=== PATIENT | female | born 1945 | race Caucasian/White ===

== ENCOUNTER → 2017-01-06 | Outpatient (REF) | payer MEDICARE, OTHER ==
[2017-01-06 19:45] LABS: ALBUMIN 3.4 GM/DL (3.2-5.2); ALBUMIN/GLOBULIN RATIO 0.94 (1.00-1.93); BILIRUBIN,TOTAL 0.3 MG/DL (0.2-1.0); CALCIUM LEVEL 8.9 MG/DL (8.8-10.2); CREATININE FOR GFR 1.24 MG/DL (0.55-1.02); GLOMERULAR FILTRATION RATE 45.5 (>39); POTASSIUM SERUM 4.7 MEQ/L (3.5-5.1)
== END ==
LOC: M SFHCADAM 15:37
PROVIDERS: ATTEND Family Medicine
DX: R73.09 Other abnormal glucose (principal)
CPT/HCPCS: 80053; 83036; G0463

== ENCOUNTER → 2017-01-27 | Outpatient (CLI) | payer MEDICARE, OTHER ==
--- NOTE | 2017-02-13 00:11 | ECWPNPC ---
PATIENT NAME: TENISHA REYNAGA : 1945 GENDER: FEMALE VISIT DATE: 01/27/2017 DISCHARGE DATE: 01/27/17 1440 VISIT LOCKED DATE TIME: PHYSICIAN: ÁNGEL BRONSON RESOURCE: ÁNGEL BRONSON REASON FOR APPOINTMENT 1. CHRONIC PAIN HISTORY OF PRESENT ILLNESS NEW PATIENT CONSULT: WHEN DID YOUR PAIN FIRST START? . BRIEFLY DESCRIBE HOW YOUR PAIN STARTED? . HOW DOES YOUR PAIN CHANGE WITH TIME? . DOES YOUR PAIN AWAKEN YOU FROM SLEEP? . HOW MANY HOURS OF SLEEP DO YOU NORMALLY GET? . ANY DIAGNOSTIC TESTING? . FACILITY WHERE TESTS WERE DONE? ____. PAIN TREATMENT TREATMENT YES CANCER HAVE YOU EVER HAD ANY TYPE OF CANCER?NO NO. PAIN SCREENING: PATIENT HAS A COMPLAINT OF ACUTE OR CHRONIC PAIN :YES FALL RISK SCREENING: SCREENING :NO FALLS IN THE PAST YEAR [place] INVENTORY: QUESTIONNAIRE ASSESSEDNO SCORE VALUE CALCULATED NO DID NOT COMPLETE ALL ASSESSMENT QUESTIONS. DENIES SUICIDAL OR HOMICIDAL IDEATION TODAY'S VISIT: NOTES: PT REFERRED BY DR. SHAD GAYTAN FOR CHRONIC HIP (POST SURGICAL PAIN S/P INFCTION) AND SHOULDER PAIN . RATES PAIN LEVEL TODAY 5/10. REPORTS PAIN IS CENTERED IN LOW BACK, LEFT SHOULDER, AND LEFT KNEE. REPORTS HAD LEFT HIP REPLACEMENT AFTER DEGENERATIVE CHANGES. STATES PAIN ACTUALLY STARTED WITH PAIN AND DISLOCATION IN LEFT KNEE. NOW IS NOTING THAT KNEE FEELS LIKE IT'S GOING TO BREAK. THIS HAS BEEN PRESENT FOR A FEW WEEKS. STILL HAS A LARGE OPEN WOUND AT LEFT HIP AND IS PRESENTLY SEEING DR GARCIA. CURRENTLY HAS NOT HAD ANY RECENT PT FOR LEFT KNEE AND DID ATTEND REHAB POST HIP SURGERY. IS HAVING PAIN IN LEFT ARM FROM ANTERIOR. ELBOW TO SHOULDER. ONSET WAS A FEW WEEKS AFTER HIP SURGERY. THIS IS THE WORST AREA OF PAIN. HAS BEEN TAKING OXYCODONE AND THIS HELPS IF SHE TAKES 2 TABS. HAD HAD NO SWELLING, N/T IN THE LEFT ARM. DOES HAVE PREVIOUS ROTATOR CUFF PAIN ON RIGHT. . CURRENT MEDICATIONS TAKING LOVASTATIN 20 MG TABLET 1 TABLET WITH A MEAL ORALLY ONCE A DAY TAKING FERROUS GLUCONATE 325 (36 FE) MG TABLET 1 TABLET ORALLY ONCE A DAY TAKING METFORMIN HCL 500 MG TABLET 1 TABLET WITH MEALS ORALLY TWICE A DAY TAKING MULTIVITAMIN WOMEN - TABLET ORALLY DAILY TAKING PRESERVISION AREDS - CAPSULE 1 CAP ORALLY BID TAKING ASPIRIN 325 MG TABLET 1/2 TABLET ORALLY ONCE A DAY TAKING FIBER 625 MG TABLET 1-3 TABLET NEEDED ORALLY BID TAKING CALCIUM 500 MG TABLET 2 TABLET WITH MEALS ORALLY TWICE A DAY TAKING VITAMIN D (CHOLECALCIFEROL) 1000 UNIT TABLET 3 TABLET ORALLY ONCE A DAY TAKING MECLIZINE HCL 25 MG TABLET CHEWABLE 1 TABLET NEEDED ORALLY ONCE A DAY TAKING GUANFACINE HCL 2 MG TABLET 1 TABLET AT BEDTIME ORALLY ONCE A DAY TAKING GABAPENTIN 100 MG CAPSULE 1 TAB ORALLY ONCE DAILY TAKING OXYCODONE-ACETAMINOPHEN 5-325 MG TABLET 1 TABLET NEEDED ORALLY EVERY 6 HRS TAKING FOLIC ACID 800 MCG TABLET 1 TABLET ORALLY ONCE A DAY TAKING MELATONIN 5 MG TABLET 3 TABLET AT BEDTIME NEEDED WITH FOOD ORALLY ONCE A DAY TAKING BENADRYL 1 CAP ORALLY 25 MG NEEDED TAKING CLARITIN 10 MG TABLET 1 TABLET ORALLY ONCE A DAY NOT-TAKING PROBIOTIC - CAPSULE ORALLY DAILY NOT-TAKING OXYCONTIN 10 MG TABLET ER 12 HOUR ABUSE-DETERRENT 1 TABLET ORALLY EVERY 12 HRS NOT-TAKING MELOXICAM 15 MG TABLET 1 TABLET ORALLY ONCE A DAY NOT-TAKING LIDODERM 5 % PATCH 1 PATCH TO SKIN REMOVE AFTER 12 HOURS EXTERNALLY ONCE A DAY NOT-TAKING LEVOFLOXACIN 750 MG TABLET 1 TABLET ORALLY ONCE A DAY NOT-TAKING AMPICILLIN 500 MG CAPSULE 1 CAPSULE ORALLY EVERY 6 HRS NOT-TAKING OXYCONTIN 10 MG TABLET ER 12 HOUR ABUSE-DETERRENT 1 TABLET ORALLY EVERY 8 HOURS MEDICATION LIST REVIEWED AND RECONCILED WITH THE PATIENT PAST MEDICAL HISTORY TYPE 2 DIABETES ARTHRITIS SPINAL STENOSIS ALLERGIES SUGAR SUBSTITUTES: LIGHT HEADNESS, DIZZINESS: ALLERGY ASPERTAME: LIGHT HEADEDNESS: ALLERGY SURGICAL HISTORY RIGHT ANKLE REPAIR- PLATE AND SCREWS RIGHT KNEE- PLATE AND SCREWS LEFT HIP REPLACEMENT 12/15/16 T&A A CHILD AND AN ADULT FAMILY HISTORY FATHER: , DIAGNOSED WITH HEART DISEASE, STROKE MOTHER: , MOTHER R/T MVA D/T A STROKE , DIAGNOSED WITH STROKE 3 SON(S) , 2 DAUGHTER(S) - HEALTHY. PATERNAL AUNT WITH A HX OF MANY TYPES OF CANCERS 3 BIOLOGICAL CHILDREN AND 2 ADOPTED CHILDREN. 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 NO . CHILLS NO . FEVER NO . INFECTION: DO YOU HAVE NEW INFECTIONS? NO . DO YOU HAVE HISTORY OF MRSA? NO . MUSCULOSKELETAL: ANY NEW PATTERNS OF PAIN OR NUMBNESS? NO . SYTEMIC LUPUS NO . GASTROENTEROLOGY: GENERAL CONSTIPATION POST OP . ANY NEW CHANGE IN BOWEL CONTROL? NO . BARRETTS ESOPHAGUS NO . CIRRHOSIS NO . HEPATITIS NO . LIVER FAILURE NO . ACID REFLUX NO . UNEXPLAINED WEIGHT LOSS NO . GENITOURINARY: ANY NEW CHANGE IN BLADDER CONTROL? NO . IS THERE A CHANCE YOU COULD BE ? NO . HEMATOLOGY/LYMPH: DO YOU TAKE ANY BLOOD THINNERS? (FOR EXAMPLE- COUMADIN, PLAVIX, AGGRENOX, PLATEL, PRADAXA, OR XARELTO) NO . WHEN WAS YOUR LAST DOSE? DATE: TIME: . LOW PLATELET COUNT NO . SICKLE CELL DISEASE NO . VON WILLIEBRANDS NO . FACTOR V LEIDEN NO . THALLASEMIA NO . ANEMIA NO . EASY BRUISING NO . NEUROLOGY: HAVE YOU FALLEN IN THE PAST 6 MONTHS? NO . ANY NEW EXTREMITY NUMBNESS OR WEAKNESS? NO . HEAD INJURY NO . DEMENTIA NO . CEREBRAL PALSY NO . MULTIPLE SCLEROSIS NO . DIZZINESS NO . HEADACHE NO . STROKES NO . VERTIGO NO . CARDIOLOGY: DO YOU HAVE A PACEMAKER OR DEFIBRILLATOR? NO . ANGINA NO . HEART ATTACK NO . HEART SURGERY NO . CONGESTIVE HEART FAILURE/FLUID OVERLOAD NO . CHEST PAIN NO . HIGH BLOOD PRESSURE NO . IRREGULAR HEART BEAT PVC'S FOUND DURING WORKUP FOR SURGERY . MURMURS POSSIBLE HEART MURMUR . RESPIRATORY: HAVE YOU BEEN SICK IN THE PAST WEEK? NO . FEVER NO . FLU LIKE SYMPTOMS? NO . CPAP NO . BYPAP NO . ASTHMA NO . EMPHYSEMA NO . CHRONIC LUNG DISEASES NO . SHORTNESS OF BREATH ON EXERTION NO . DO YOU USE ANY TYPE OF TOBACCO (SMOKE, SMOKELESS, CHEW)? NO . COUGH NO . SNORING NO . INTEGUMENTARY: DO YOU HAVE ANY RASHES OR OPEN SORES? YES - OPEN WOUND LEFT HIP - SEEING DR GARCIA. HAS PATCHS ON FACE TO BE EVALUATED . ALLERGIC/IMMUNO: ARE YOU ALLERGIC TO SHELLFISH OR IV DYE? NO . ANY NEW ALLERGIES? NO . PSYCHIATRIC: DO YOU HAVE THOUGHTS OF HURTING YOURSELF OR SOMEONE ELSE? NO . ARE YOU ABUSED, NEGLECTED, OR IN AN UNSAFE ENVIRONMENT? NO . ENDOCRINOLOGY: ARE YOU DIABETIC? YES- NOT SURE ABOUT BLOOD SUGARS A1C =7 . THYROID DISORDER NO . OTHER: DO YOU NEED ANY PRESCRIPTIONS? NO . IF YES, PLEASE LIST: ____ . ANY NEW PROBLEMS WITH YOUR MEDICATIONS? NO . WHEN DID YOU LAST EAT? ____ . WHEN DID YOU LAST DRINK? ____ . WHAT DID YOU LAST DRINK? ____ . NAME OF PERSON DRIVING YOU HOME? ____ . DO YOU HAVE ANY OTHER QUESTIONS OR CONCERNS NO . PSYCHOLOGY: NIGHTMARES TREATED WITH GUIFENASIN - HAD SEEN PSYCH IN [place] . SLEEP DISTURBANCES IMPROVED WITH MELATONIN. . REVIEWED BY: PROVIDER: ÁNGEL BEVERLY . VITAL SIGNS WT 235.4 LBS, HT 66.5 IN, BMI 37.42 INDEX, BP 141/67 MM HG, HR 59 /MIN, RR 16 /MIN, TEMP 98.8 F, OXYGEN SAT % 100%, NA INITIALS TL 1307, REVIEWED BY: CS. EXAMINATION GENERAL EXAMINATION: GENERAL APPEARANCE:APPEARS OLDER THAN STATED AGE, APPEARS FATIGUED. PSYCHALERT , ORIENTED X 3 , APPROPRIATE MOOD AND AFFECT , HAS DIFFICULTY STAYING ON [employer]. PLEASANT TO INTERACT WITH. HEENT:NORMOCEPHALIC, WEARS GLASSES, NO LYMPHADENOPATHY, NO THYROMEGLY. HEART:HEART RATE REGULAR, VERY FAIT I/ MURMUR HEARD ALANNAH 2ND INTERCOSTAL SPACE MID-CLAVICULAR LINE, HEART RATE IRREGULAR. NO CAROTID BRUITS. MUSCULOSKELETAL:PASTRY BAKER STRENGTH EQUAL AND STRONG. PROMINENT PIP JOINTS NOTES 1ST AND 2ND METACARPALS BILATERALLY. VERY ROOR RANGE OF MOTION BILATERAL AC JOINTS BILATERALLY WITH POINT TENDERNESS OVER LEFT HUMEROUS/DELTOID AREA WELL AT THE AC JOINT. OPEN DRESSED WOUND NOTED OVER LEFT HIP. USES WALKING STICK TO RISE TO STANDING POSITION AND FOR BALANCE.. JOINTS:LEFT , PAIN , SWELLING , KNEE RED, WARM. PAIN AT LEFT SHOULDER WITH MANIPULATION. SKIN:DRESSED WOND NOTED OVER LEFT FEMUR/TROCANTER. ASSESSMENTS STATUS POST LEFT HIP REPLACEMENT - Z96.642 (PRIMARY) LEFT ANTERIOR KNEE PAIN - M25.562 LEFT UPPER ARM PAIN - M79.622 TREATMENT STATUS POST LEFT HIP REPLACEMENT KNEE [id number],SUSAN M 01/27/2017 2:24:50 PM > LEFT, WEAKNESS, POOR ROM SMC [id number],SUSAN M 01/27/2017 2:25:20 PM > LEFT ARM PAIN SHOULDER [id number],SUSAN M 01/27/2017 2:25:42 PM > LEFT SHOULDER PAIN, LOSS OF ROM, CLICKING NOTES: START PHYSICAL THERAPY LEFT KNEE/HIP AND LEG. CONTINUE CURRENT OXYCODONE - MAX 4 TABS PER DAY. , FALLS CARE PLAN: 1. RECOMMEND REMOVING ALL THROW RUGS. 2. RECOMMEND NIGHT LIGHTS 3. RECOMMEND WEARING RUBBER SOLED SHOES AND TO NOT GO BAREFOOT. 4.. ADVISED TO CHANGE POSITION SLOWLY FROM SUPINE TO STANDING TO AVOID DIZZINESS. 5. ADVISED TO USE ASSISTIVE DEVICE SUCH CANE OR WALKER 6. USE LIFELINE SERVICES OR KEEP PORTABLE PHONE READILY AVAILABLE, #128 - SCREENING BMI AND F/U PLAN IN : BMI ABOVE NORMAL TODAY. DISCUSSED WITH PATIENT NUTRITIONAL FOOD CHOICES TO ASSIST WITH APPROPRIATE NUTRITION STATUS AND TO ASSIST WITH WOUND HEALING. RECCOMMENDED REDUCING SALT, SUGAR, SODA INTAKE. RECOMMEND INCREASE ACTIVITY TO INCLUDE WALKING ON A REGULAR BASIS. CLINICAL NOTES: ISTOP REGISTRY REVIEWED AND DEMNOSTRATES COMPLLIANCE. ALL MEDS ARE BEING PRESCIBED CURRENTLY THROUGH HER PCP BUT THIS IS BEING REDIRECTED TO THE PAIN CENTER FOR PAIN MEDS. PATIENT INSTRUCTED TO BRING ALL MEDS TO HER NEXT VISIT. PROCEDURE CODES FA211 ESTABILISHED PATIENT [facility] FACILITY CHARGE G8783 BP SCR PRFRM RCMDD DEFIND SCR INTVL G8730 PAIN ASSESS POS TOOL F/U PLAN DOC 1123F ACP DISCUSS/DSCN MKR DOCD 1036F TOBACCO NON-USER 0518F FALL PLAN OF CARE DOCD G8427 DOC MEDS VERIFIED W/PT OR RE G8417 BMI >=30 CALCUATE W/FOLLOWUP 3288F FALL RISK ASSESSMENT DOCD 4004F PT TOBACCO SCREEN RCVD TLK DISPOSITION & COMMUNICATION FOLLOW UP ABOUT 02/12/17 (REASON: KNEE/SHOULDER/HIP [AIN) ELECTRONICALLY SIGNED BY GRACIELA HUERTA ON 02/12/2017 AT 01:50 PM EDT DISCLAIMER : THIS IS A VISIT SUMMARY EXTRACTED FROM THE [employer] CHART. IT IS NOT A COPY OF THE [employer] PROGRESS NOTE. MTDD
== END ==
LOC: M PAIN 13:20
PROVIDERS: ATTEND Nurse Practitioner Family
DX: G89.29 Other chronic pain (principal); M25.552 Pain in left hip; M25.562 Pain in left knee; M79.622 Pain in left upper arm; E11.9 Type 2 diabetes mellitus without complications; M19.90 Unspecified osteoarthritis, unspecified site; M48.00 Spinal stenosis, site unspecified; Z91.018 Allergy to other foods; Z79.84 Long term (current) use of oral hypoglycemic drugs; Z79.82 Long term (current) use of aspirin; Z79.899 Other long term (current) drug therapy; Z96.642 Presence of left artificial hip joint

== ENCOUNTER → 2017-02-10 | Outpatient (CLI) | payer MEDICARE, OTHER ==
[~2017-02-10] MED LIST: ACET300T52 PO; ASPI325T PO; BACT800T5 PO; CALC600T31 PO; CLAR10CA3 PO; DULO1CAP2 PO; FERR325T3 PO; FIBE625T27 PO; FOLI800T PO; GUAN2TAB PO; LOVA20TA2 PO; MECL1CHW2 PO; METF500T13 PO; NORC1TAB4 PO; OCUVTAB4 PO; ONDA4TAB5 PO; VITA200038 PO; VITMTA PO
--- NOTE | 2017-02-11 02:51 | REP ---
Clinical: Shoulder pain. Technique: Internal rotation, external rotation, and Y view. Findings: Moderate arthritic degenerative changes include spurring and cortical irregularity at the acromioclavicular joint as well as subtle cortical irregularity involving the humeral head. No acute fracture or dislocation. Surrounding soft tissues are unremarkable. Impression: Moderate arthritic degenerative changes primarily involving the acromioclavicular joint. Signed by Nikos Jones MD 02/11/2017 02:42 A
--- NOTE | 2017-02-11 08:24 | REP ---
Left humerus two views: There is diffuse demineralization. There is no fracture or dislocation. There is moderate narrowing of the subacromial space compatible with chronic impingement. This should be correlated with clinical findings. There are no calcifications or foreign bodies. Signed by Berny Royal MD 02/11/2017 08:16 A
--- NOTE | 2017-02-11 08:26 | REP ---
Left knee six views: There are no comparisons. There is internal fixation of the tibial plateau and proximal tibial shaft with a compression plate. There is diffuse demineralization. There is tricompartment osteoarthritis. No joint effusion. No calcifications or foreign bodies. Signed by Berny Royal MD 02/11/2017 08:18 A
== END ==
LOC: M RAD 17:48
PROVIDERS: ATTEND Nurse Practitioner Family
DX: M79.602 Pain in left arm (principal); M19.012 Primary osteoarthritis, left shoulder; E11.69 Type 2 diabetes mellitus with other specified complication; Z96.642 Presence of left artificial hip joint
CPT/HCPCS: 11042; 73030; 73060; 73564; 93971; G0463

== ENCOUNTER → 2017-02-10 | Outpatient (CLI) | payer MEDICARE, OTHER ==
--- NOTE | 2017-02-10 18:30 | REPUSA ---
Clinical history: Pain, swelling. Findings: The right common femoral, superficial femoral, popliteal, and other deep venous structures compress normally and demonstrate normal color Doppler flow. Normal venous waveforms with augmentatio n are seen. Impression: No evidence of deep vein thrombosis in the right femoral popliteal venous system.
== END ==
LOC: M RAD 17:41
PROVIDERS: ATTEND Family Medicine
DX: M79.604 Pain in right leg (principal)

== ENCOUNTER → 2017-02-12 | Outpatient (CLI) | payer MEDICARE, OTHER ==
--- NOTE | 2017-03-04 01:37 | ECWPNPC ---
PATIENT NAME: TENISHA REYNAGA : 1945 GENDER: FEMALE VISIT DATE: 02/12/2017 DISCHARGE DATE: 02/12/17 1227 VISIT LOCKED DATE TIME: PHYSICIAN: ÁNGEL BRONSON RESOURCE: ÁNGEL BRONSON REASON FOR APPOINTMENT 1. KNEE/SHOULDER/HIP HISTORY OF PRESENT ILLNESS HISTORY OF PRESENT ILLNESS: PAIN THE PATIENT DESCRIBES THE PAIN... FALL RISK SCREENING: SCREENING :NO FALLS IN THE PAST YEAR TODAY'S VISIT: NOTES: REFERRED FOR CHRONIC PAIN RELATED TO THE LEFT HIP WOUND AND LEFT SHOULDER BY Lela GAYTAN DO. RATES PAIN LEVEL TODAY 5/10. DESCRIBES PAIN CONSTANT, THROBBING, ANCHING AND EFFECTED BY MOVEMENT . NOTES PAIN AREAS ARE LEFT FOREARM, LEFT HIP AND LEFT MEDIAL CALF. HAD IMAGING COMPLETED OF SHOULDER, HIP ANDKNEE. HAS WOUND VAC TO LEFT HIP W AND THIS IS UNER THE CARE OF DR KAREN GARCIA AT THE [facility]. REPORTS SHE HAS RECENTLY MOVED TO THE AREA AND WAS ON HIGH DOSE OPIATE THERAPY BEFORE MOVING HERE. KIAN IS CURRENTLY LIVING IN A [place] AND IS LOOKING FOR PERMANAT HOUSING. . CURRENT MEDICATIONS TAKING METFORMIN HCL 500 MG TABLET 1 TABLET WITH MEALS ORALLY TWICE A DAY TAKING LOVASTATIN 20 MG TABLET 1 TABLET WITH A MEAL ORALLY ONCE A DAY TAKING FERROUS GLUCONATE 325 (36 FE) MG TABLET 1 TABLET ORALLY ONCE A DAY TAKING MULTIVITAMIN WOMEN - TABLET ORALLY DAILY TAKING PRESERVISION AREDS - CAPSULE 1 CAP ORALLY BID TAKING ASPIRIN 325 MG TABLET 1/2 TABLET ORALLY ONCE A DAY TAKING FIBER 625 MG TABLET 1-3 TABLET NEEDED ORALLY BID TAKING CALCIUM 500 MG TABLET 2 TABLET WITH MEALS ORALLY TWICE A DAY TAKING VITAMIN D (CHOLECALCIFEROL) 1000 UNIT TABLET 3 TABLET ORALLY ONCE A DAY TAKING MECLIZINE HCL 25 MG TABLET CHEWABLE 1 TABLET NEEDED ORALLY ONCE A DAY TAKING GUANFACINE HCL 2 MG TABLET 1 TABLET AT BEDTIME ORALLY ONCE A DAY TAKING FOLIC ACID 800 MCG TABLET 1 TABLET ORALLY ONCE A DAY TAKING MELATONIN 5 MG TABLET 3 TABLET AT BEDTIME NEEDED WITH FOOD ORALLY ONCE A DAY TAKING BENADRYL 1 CAP ORALLY 25 MG NEEDED TAKING CLARITIN 10 MG TABLET 1 TABLET ORALLY ONCE A DAY TAKING TYLENOL WITH CODEINE #4 300-60 MG TABLET 2 TABLETS NEEDED ORALLY 3-4 TIMES A DAY NOT-TAKING OXYCODONE-ACETAMINOPHEN 5-325 MG TABLET 1 TABLET NEEDED ORALLY EVERY 6 HRS NOT-TAKING GABAPENTIN 100 MG CAPSULE 1 TAB ORALLY ONCE DAILY NOT-TAKING PROBIOTIC - CAPSULE ORALLY DAILY NOT-TAKING OXYCONTIN 10 MG TABLET ER 12 HOUR ABUSE-DETERRENT 1 TABLET ORALLY EVERY 12 HRS NOT-TAKING MELOXICAM 15 MG TABLET 1 TABLET ORALLY ONCE A DAY NOT-TAKING LIDODERM 5 % PATCH 1 PATCH TO SKIN REMOVE AFTER 12 HOURS EXTERNALLY ONCE A DAY NOT-TAKING LEVOFLOXACIN 750 MG TABLET 1 TABLET ORALLY ONCE A DAY NOT-TAKING AMPICILLIN 500 MG CAPSULE 1 CAPSULE ORALLY EVERY 6 HRS NOT-TAKING OXYCONTIN 10 MG TABLET ER 12 HOUR ABUSE-DETERRENT 1 TABLET ORALLY EVERY 8 HOURS MEDICATION LIST REVIEWED AND RECONCILED WITH THE PATIENT PAST MEDICAL HISTORY TYPE 2 DIABETES ARTHRITIS SPINAL STENOSIS ALLERGIES SUGAR SUBSTITUTES: LIGHT HEADNESS, DIZZINESS: ALLERGY ASPERTAME: LIGHT HEADEDNESS: ALLERGY GABAPENTIN: VISION BLURS AND HARD TO READ: SIDE EFFECTS LIDODERM: PAIN: SIDE EFFECTS SOCIAL HISTORY GENERAL: TOBACCO USE ARE YOU A:NONSMOKER DIET: REGULAR. EXERCISE: NO REGULAR EXERCISE. 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 REVIEW OF SYSTEMS REVIEWED BY: PROVIDER: ÁNGEL BEVERLY . CONSTITUTIONAL: ANY CHANGE IN YOUR MEDICAL CONDITION? NO . CHILLS NO . FEVER NO . INFECTION: DO YOU HAVE NEW INFECTIONS? NO . DO YOU HAVE HISTORY OF MRSA? NO . MUSCULOSKELETAL: ANY NEW PATTERNS OF PAIN OR NUMBNESS? NO . GASTROENTEROLOGY: ANY NEW CHANGE IN BOWEL CONTROL? NO . GENITOURINARY: ANY NEW CHANGE IN BLADDER CONTROL? NO . IS THERE A CHANCE YOU COULD BE ? NO . HEMATOLOGY/LYMPH: DO YOU TAKE ANY BLOOD THINNERS? (FOR EXAMPLE- COUMADIN, PLAVIX, AGGRENOX, PLATEL, PRADAXA, OR XARELTO) NO . WHEN WAS YOUR LAST DOSE? DATE: TIME: . NEUROLOGY: HAVE YOU FALLEN IN THE PAST 6 MONTHS? NO . ANY NEW EXTREMITY NUMBNESS OR WEAKNESS? NO . CARDIOLOGY: DO YOU HAVE A PACEMAKER OR DEFIBRILLATOR? NO . RESPIRATORY: HAVE YOU BEEN SICK IN THE PAST WEEK? NO . FEVER NO . FLU LIKE SYMPTOMS? NO . COUGH NO . INTEGUMENTARY: DO YOU HAVE ANY RASHES OR OPEN SORES? NO . ALLERGIC/IMMUNO: ARE YOU ALLERGIC TO SHELLFISH OR IV DYE? NO . ANY NEW ALLERGIES? NO . PSYCHIATRIC: DO YOU HAVE THOUGHTS OF HURTING YOURSELF OR SOMEONE ELSE? NO . ARE YOU ABUSED, NEGLECTED, OR IN AN UNSAFE ENVIRONMENT? NO . ENDOCRINOLOGY: ARE YOU DIABETIC? NO . OTHER: DO YOU NEED ANY PRESCRIPTIONS? NO . IF YES, PLEASE LIST: ____ . ANY NEW PROBLEMS WITH YOUR MEDICATIONS? NO . WHEN DID YOU LAST EAT? ____ . WHEN DID YOU LAST DRINK? ____ . WHAT DID YOU LAST DRINK? ____ . NAME OF PERSON DRIVING YOU HOME? ____ . DO YOU HAVE ANY OTHER QUESTIONS OR CONCERNS YES, SPINAL STENOSIS . VITAL SIGNS WT 226.4 LBS, HT 66.5 IN, BMI 35.99 INDEX, BP 129/79 MM HG, HR 64 /MIN, RR 16 /MIN, TEMP 98.5 F, OXYGEN SAT % 100%, NA INITIALS SC 11:13, REVIEWED BY: TOR. EXAMINATION GENERAL EXAMINATION: PSYCHALERT , ORIENTED X 3 , ANXIOUS, TALKATIVE, HAS DIFFICULTY STAYING ON TARGET. LUNGS:CLEAR TO AUSCULTATION BILATERALLY. HEART:HEART RATE REGULAR. MUSCULOSKELETAL:MUSCLE STRENGTH TESTING 5/5 BILATERAL LOWER EXTREMITIES. TENDER TO PALPATION OVER LEFT DELTOID. FULL ROM OF UPPER EXTREMITIES. . SKIN:WOUND VAC IN PLACE LEFT HIP.. ASSESSMENTS STATUS POST LEFT HIP REPLACEMENT - Z96.642 (PRIMARY) LEFT ANTERIOR KNEE PAIN - M25.562 LEFT UPPER ARM PAIN - M79.622 TREATMENT STATUS POST LEFT HIP REPLACEMENT START ACETAMINOPHEN-CODEINE TABLET, 300-30 MG, 1 TABLET NEEDED, ORALLY, 1-2 Q 4 HRS PRN PAIN MDD=6, 30 DAY(S), 180, REFILLS 0 NOTES: START PHYSICAL THERAPY. NARCOTIC AGREEMENT AND URINE TOX TODAY. BRING ALL PAIN PAIN MEDS INCLUDING OXYCONTIN TO NEXT VISIT. CLINICAL NOTES: REVIEWED WITH PATIENT THE POTENTIAL RISK OF INCREASED SEDATION, RESPIRATORY SUPPRESSION AND WITH THE COMBINATION OF BENZODIAZAPINE AND OPIOD MEDICATIONS. PATIENT STATES HE UNDERSTANDS THIS RISK AND WISHES TO CONTINUE WITH THERAPY, RISKS AND BENEFITS OF NARCOTIC/OPIOD MEDICATIONS WERE REVIEWED WITH PATIENT - THIS INCLUDES BUT IS NOT LIMITED TO RISK OF DEPENDANCE/DEVELOPMENT OF ADDICTION, MOOD DISTURBANCE AND DEPRESSION, OSTEOPOROSIS, HORMONAL AND LABIDAL CHANGES, RESPIRATORY DEPRESSION AND . PATIENT IS ADVISED NOT TO DRIVE WHILE ON THESE MEDICATIONS, ISTOP REGISTRY REVIEWED AND DEMNOSTRATES COMPLLIANCE. PREVENTIVE MEDICINE PAIN CLINIC TEACHING: MEDICATIONS PATIENT DOESN'T WANT ANY ADDITIONAL INFORMATION REGARDING TYLENOL #3 SINCE SHE IS ALREADY TAKING TYLENOL#4. PROCEDURE CODES FA211 ESTABILISHED PATIENT [facility] FACILITY CHARGE G8730 PAIN ASSESS POS TOOL F/U PLAN DOC G8427 DOC MEDS VERIFIED W/PT OR RE DISPOSITION & COMMUNICATION FOLLOW UP 26-28 DAYS (REASON: HIP PAIN) ELECTRONICALLY SIGNED BY GRACIELA HUERTA ON 03/03/2017 AT 02:45 PM EDT DISCLAIMER : THIS IS A VISIT SUMMARY EXTRACTED FROM THE [employer] CHART. IT IS NOT A COPY OF THE [employer] PROGRESS NOTE. MTDD
== END ==
LOC: M PAIN 11:00
PROVIDERS: ATTEND Nurse Practitioner Family
DX: M25.562 Pain in left knee (principal); M79.622 Pain in left upper arm; Z96.642 Presence of left artificial hip joint; Z79.84 Long term (current) use of oral hypoglycemic drugs; Z79.82 Long term (current) use of aspirin; Z91.018 Allergy to other foods; Z88.8 Allergy status to other drugs, medicaments and biological substances; Z88.6 Allergy status to analgesic agent

== ENCOUNTER → 2017-03-12 | Outpatient (CLI) | payer MEDICARE, OTHER ==
--- NOTE | 2017-04-02 00:34 | ECWPNPC ---
PATIENT NAME: TENISHA REYNAGA : 1945 GENDER: FEMALE VISIT DATE: 03/12/2017 DISCHARGE DATE: 03/12/17 1033 VISIT LOCKED DATE TIME: PHYSICIAN: ÁNGEL BRONSON RESOURCE: ÁNGEL BRONSON REASON FOR APPOINTMENT 1. 26-28 DAYS HISTORY OF PRESENT ILLNESS HISTORY OF PRESENT ILLNESS: PAIN THE PATIENT DESCRIBES THE PAIN... FALL RISK SCREENING: SCREENING :NO FALLS IN THE PAST YEAR TODAY'S VISIT: NOTES: RATES PAIN LEVEL TODAY 8/10 WHEN UP.PAIN LEVEL A 2-3 WHEN SLEEPING. WOUND VAC HAS BEEN DISCONTINUED AND WOUND PAIN HAS DIMINISHED. PAIN IS CURRRENTLY WORSE IN LEFT KNEE. IS FRUSTRATED BECAUSE CAN'T FUNCTION. RIGHT SHOULDER HURTING CAN ONLY LAY ON RIGHT ARM. . CURRENT MEDICATIONS TAKING FERROUS GLUCONATE 325 (36 FE) MG TABLET 1 TABLET ORALLY ONCE A DAY TAKING MULTIVITAMIN WOMEN - TABLET ORALLY DAILY TAKING PRESERVISION AREDS - CAPSULE 1 CAP ORALLY BID TAKING ASPIRIN 325 MG TABLET 1/2 TABLET ORALLY ONCE A DAY TAKING FIBER 625 MG TABLET 1-3 TABLET NEEDED ORALLY BID TAKING CALCIUM 500 MG TABLET 2 TABLET WITH MEALS ORALLY TWICE A DAY TAKING VITAMIN D (CHOLECALCIFEROL) 1000 UNIT TABLET 3 TABLET ORALLY ONCE A DAY TAKING MECLIZINE HCL 25 MG TABLET CHEWABLE 1 TABLET NEEDED ORALLY ONCE A DAY TAKING FOLIC ACID 800 MCG TABLET 1 TABLET ORALLY ONCE A DAY TAKING MELATONIN 5 MG TABLET 3 TABLET AT BEDTIME NEEDED WITH FOOD ORALLY ONCE A DAY TAKING BENADRYL 1 CAP ORALLY 25 MG NEEDED TAKING CLARITIN 10 MG TABLET 1 TABLET ORALLY ONCE A DAY TAKING ACETAMINOPHEN-CODEINE #3 300-30 MG TABLET 1 TABLET NEEDED ORALLY EVERY 6 HRS PRN PAIN MDD=4 TAKING GUANFACINE HCL 2 MG TABLET 1 TABLET AT BEDTIME ORALLY ONCE A DAY TAKING METFORMIN HCL 500 MG TABLET 1 TABLET WITH MEALS ORALLY TWICE A DAY TAKING LOVASTATIN 20 MG TABLET 1 TABLET WITH A MEAL ORALLY ONCE A DAY NOT-TAKING OXYCODONE-ACETAMINOPHEN 5-325 MG TABLET 1 TABLET NEEDED ORALLY EVERY 6 HRS NOT-TAKING PROBIOTIC - CAPSULE ORALLY DAILY NOT-TAKING OXYCONTIN 10 MG TABLET ER 12 HOUR ABUSE-DETERRENT 1 TABLET ORALLY EVERY 12 HRS NOT-TAKING MELOXICAM 15 MG TABLET 1 TABLET ORALLY ONCE A DAY NOT-TAKING LIDODERM 5 % PATCH 1 PATCH TO SKIN REMOVE AFTER 12 HOURS EXTERNALLY ONCE A DAY NOT-TAKING LEVOFLOXACIN 750 MG TABLET 1 TABLET ORALLY ONCE A DAY NOT-TAKING AMPICILLIN 500 MG CAPSULE 1 CAPSULE ORALLY EVERY 6 HRS NOT-TAKING OXYCONTIN 10 MG TABLET ER 12 HOUR ABUSE-DETERRENT 1 TABLET ORALLY EVERY 8 HOURS DISCONTINUED ACETAMINOPHEN-CODEINE 300-30 MG TABLET 1 TABLET NEEDED ORALLY 1-2 Q 4 HRS PRN PAIN MDD=6 DISCONTINUED TYLENOL WITH CODEINE #4 300-60 MG TABLET 2 TABLETS NEEDED ORALLY 3-4 TIMES A DAY DISCONTINUED GABAPENTIN 100 MG CAPSULE 1 TAB ORALLY ONCE DAILY MEDICATION LIST REVIEWED AND RECONCILED WITH THE PATIENT PAST MEDICAL HISTORY TYPE 2 DIABETES ARTHRITIS SPINAL STENOSIS ALLERGIES SUGAR SUBSTITUTES: LIGHT HEADNESS, DIZZINESS: ALLERGY ASPERTAME: LIGHT HEADEDNESS: ALLERGY GABAPENTIN: VISION BLURS AND HARD TO READ: SIDE EFFECTS LIDODERM: PAIN: SIDE EFFECTS REVIEW OF SYSTEMS REVIEWED BY: PROVIDER: ÁNGEL BEVERLY . CONSTITUTIONAL: ANY CHANGE IN YOUR MEDICAL CONDITION? NO . CHILLS NO . FEVER NO . INFECTION: DO YOU HAVE NEW INFECTIONS? NO . DO YOU HAVE HISTORY OF MRSA? NO . MUSCULOSKELETAL: ANY NEW PATTERNS OF PAIN OR NUMBNESS? NO . GASTROENTEROLOGY: ANY NEW CHANGE IN BOWEL CONTROL? NO . GENITOURINARY: ANY NEW CHANGE IN BLADDER CONTROL? NO . IS THERE A CHANCE YOU COULD BE ? NO . HEMATOLOGY/LYMPH: DO YOU TAKE ANY BLOOD THINNERS? (FOR EXAMPLE- COUMADIN, PLAVIX, AGGRENOX, PLATEL, PRADAXA, OR XARELTO) NO . WHEN WAS YOUR LAST DOSE? DATE: TIME: . NEUROLOGY: HAVE YOU FALLEN IN THE PAST 6 MONTHS? NO . ANY NEW EXTREMITY NUMBNESS OR WEAKNESS? NO . CARDIOLOGY: DO YOU HAVE A PACEMAKER OR DEFIBRILLATOR? NO . RESPIRATORY: HAVE YOU BEEN SICK IN THE PAST WEEK? NO . FEVER NO . FLU LIKE SYMPTOMS? NO . COUGH NO . INTEGUMENTARY: DO YOU HAVE ANY RASHES OR OPEN SORES? NO . ALLERGIC/IMMUNO: ARE YOU ALLERGIC TO SHELLFISH OR IV DYE? NO . ANY NEW ALLERGIES? NO . PSYCHIATRIC: DO YOU HAVE THOUGHTS OF HURTING YOURSELF OR SOMEONE ELSE? NO . ARE YOU ABUSED, NEGLECTED, OR IN AN UNSAFE ENVIRONMENT? NO . ENDOCRINOLOGY: ARE YOU DIABETIC? YES . OTHER: DO YOU NEED ANY PRESCRIPTIONS? YES . IF YES, PLEASE LIST: TYLENOL #4 . ANY NEW PROBLEMS WITH YOUR MEDICATIONS? NO . WHEN DID YOU LAST EAT? ____ . WHEN DID YOU LAST DRINK? ____ . WHAT DID YOU LAST DRINK? ____ . NAME OF PERSON DRIVING YOU HOME? ____ . DO YOU HAVE ANY OTHER QUESTIONS OR CONCERNS NO . VITAL SIGNS WT 224.4 LBS, HT 66.5 IN, BMI 35.67 INDEX, BP 154/93 MM HG, HR 83 /MIN, RR 16 /MIN, TEMP 97.5 F, OXYGEN SAT % 100%, NA INITIALS SC 09:47, REVIEWED BY: RADHA. EXAMINATION GENERAL EXAMINATION: PSYCHALERT , ORIENTED X 3 , ANXIOUS, TALKATIVE, HAS DIFFICULTY STAYING ON [employer]. LUNGS:CLEAR TO AUSCULTATION BILATERALLY. HEART:HEART RATE REGULAR. MUSCULOSKELETAL:MUSCLE STRENGTH TESTING 5/5 BILATERAL LOWER EXTREMITIES. TENDER TO PALPATION OVER LEFT DELTOID. FULL ROM OF UPPER EXTREMITIES. CANR USED OFR BALANCE. GAIT SLOW ANTALGIC. POSTURE STOOPED. ASSESSMENTS STATUS POST LEFT HIP REPLACEMENT - Z96.642 (PRIMARY) LEFT ANTERIOR KNEE PAIN - M25.562 LEFT UPPER ARM PAIN - M79.622 TREATMENT STATUS POST LEFT HIP REPLACEMENT START ACETAMINOPHEN-CODEINE #4 TABLET, 300-60 MG, 1 TABLET NEEDED, ORALLY, EVERY 6 -8 HRS PRN PAIN MDD=3, 30 DAY(S), 90, REFILLS 1 NOTES: RECOMMEND USE OF ICY HOT/BIOFREEZE OR ASPERCREME WITH LIDOCAINE TO LEFT KNEE/AND RIGHT SHOULDER. USE MAX 3 TYLENOL #4 PER DAY. CLINICAL NOTES: ISTOP REGISTRY REVIEWED AND DEMNOSTRATES COMPLLIANCE. DID NOT BRINGS IN PAIN MEDICATIONS. RECENT URINE TOXICOLOGY REVIEWED. NO UNAUTHORIZED MEDICATIONS. NO ILLICIT SUBSTANCES AND PRESCRIBED MEDICATIONS WERE PRESENT. REMINDED THAT SHE MUST BRING IN PAIN MEDS TO EACH VISIT AND THAT SHE IS NOT TO INCREASE THE DOSING. , RISKS AND BENEFITS OF NARCOTIC/OPIOD MEDICATIONS WERE REVIEWED WITH PATIENT - THIS INCLUDES BUT IS NOT LIMITED TO RISK OF DEPENDANCE/DEVELOPMENT OF ADDICTION, MOOD DISTURBANCE AND DEPRESSION, OSTEOPOROSIS, HORMONAL AND LABIDAL CHANGES, RESPIRATORY DEPRESSION AND . PATIENT IS ADVISED NOT TO DRIVE WHILE ON THESE MEDICATIONS. REFERRAL TO:[facility] REASON:S/P EXTENSIVE NKNEE SURGERY, WITH SWELLING AND SIGNIFICANT PAIN PROCEDURE CODES FA211 ESTABILISHED PATIENT [facility] FACILITY CHARGE Z1308 PAIN ASSESS POS TOOL F/U PLAN DOC G8427 DOC MEDS VERIFIED W/PT OR RE DISPOSITION & COMMUNICATION FOLLOW UP 1 MONTH (REASON: HIP/KNEE PAIN) ELECTRONICALLY SIGNED BY GRACIELA HUERTA ON 03/31/2017 AT 08:38 AM EDT DISCLAIMER : THIS IS A VISIT SUMMARY EXTRACTED FROM THE [employer] CHART. IT IS NOT A COPY OF THE [employer] PROGRESS NOTE. MAURI
== END ==
LOC: M PAIN 09:40
PROVIDERS: ATTEND Nurse Practitioner Family
DX: G89.29 Other chronic pain (principal); M25.562 Pain in left knee; M79.622 Pain in left upper arm; E11.9 Type 2 diabetes mellitus without complications; Z91.018 Allergy to other foods; Z88.8 Allergy status to other drugs, medicaments and biological substances; Z79.82 Long term (current) use of aspirin; Z79.84 Long term (current) use of oral hypoglycemic drugs; Z79.899 Other long term (current) drug therapy; Z96.642 Presence of left artificial hip joint

== ENCOUNTER → 2017-04-21 | Outpatient (CLI) | payer MEDICARE, OTHER ==
--- NOTE | 2017-05-01 00:08 | ECWPNPC ---
PATIENT NAME: TENISHA REYNAGA : 1945 GENDER: FEMALE VISIT DATE: 04/21/2017 DISCHARGE DATE: 04/21/17 1412 VISIT LOCKED DATE TIME: PHYSICIAN: ÁNGEL BRONSON RESOURCE: ÁNGEL BRONSON REASON FOR APPOINTMENT 1. HIP/KNEE PAIN HISTORY OF PRESENT ILLNESS HISTORY OF PRESENT ILLNESS: PAIN THE PATIENT DESCRIBES THE PAIN... FALL RISK SCREENING: SCREENING :NO FALLS IN THE PAST YEAR TODAY'S VISIT: NOTES: RATES PAIN TODAY 8/10. DESCRIBES PAIN CONSTANT, ACHING, SHARP AND SORE. IS STILL HAVING ISSUES WITH PAIN IN THE HIP . NO RECENT FALLS. NOT USING A CANE. DR GARCIA'S NOTE REVIEWED - LEFT HIP WOUND HEALED AND NO OPEN AREAS SEEN AT HER LAST VISIT THERE. . CURRENT MEDICATIONS TAKING FERROUS GLUCONATE 325 (36 FE) MG TABLET 1 TABLET ORALLY ONCE A DAY TAKING MULTIVITAMIN WOMEN - TABLET ORALLY DAILY TAKING PRESERVISION AREDS - CAPSULE 1 CAP ORALLY BID TAKING ASPIRIN 325 MG TABLET 1/2 TABLET ORALLY ONCE A DAY TAKING FIBER 625 MG TABLET 1-3 TABLET NEEDED ORALLY BID TAKING CALCIUM 500 MG TABLET 2 TABLET WITH MEALS ORALLY TWICE A DAY TAKING VITAMIN D (CHOLECALCIFEROL) 1000 UNIT TABLET 3 TABLET ORALLY ONCE A DAY TAKING MECLIZINE HCL 25 MG TABLET CHEWABLE 1 TABLET NEEDED ORALLY ONCE A DAY TAKING FOLIC ACID 800 MCG TABLET 1 TABLET ORALLY ONCE A DAY TAKING MELATONIN 5 MG TABLET 3 TABLET AT BEDTIME NEEDED WITH FOOD ORALLY ONCE A DAY TAKING BENADRYL 1 CAP ORALLY 25 MG NEEDED TAKING CLARITIN 10 MG TABLET 1 TABLET ORALLY ONCE A DAY TAKING METFORMIN HCL 500 MG TABLET 1 TABLET WITH MEALS ORALLY TWICE A DAY TAKING LOVASTATIN 20 MG TABLET 1 TABLET WITH A MEAL ORALLY ONCE A DAY TAKING GUANFACINE HCL 2 MG TABLET 1.5 TABLET AT BEDTIME ORALLY ONCE A DAY TAKING ACETAMINOPHEN-CODEINE #4 300-60 MG TABLET 1 TABLET NEEDED ORALLY EVERY 6 -8 HRS PRN PAIN MDD=3 NOT-TAKING ACETAMINOPHEN-CODEINE #3 300-30 MG TABLET 1 TABLET NEEDED ORALLY EVERY 6 HRS PRN PAIN MDD=4 NOT-TAKING OXYCODONE-ACETAMINOPHEN 5-325 MG TABLET 1 TABLET NEEDED ORALLY EVERY 6 HRS NOT-TAKING PROBIOTIC - CAPSULE ORALLY DAILY NOT-TAKING OXYCONTIN 10 MG TABLET ER 12 HOUR ABUSE-DETERRENT 1 TABLET ORALLY EVERY 12 HRS NOT-TAKING MELOXICAM 15 MG TABLET 1 TABLET ORALLY ONCE A DAY NOT-TAKING LIDODERM 5 % PATCH 1 PATCH TO SKIN REMOVE AFTER 12 HOURS EXTERNALLY ONCE A DAY NOT-TAKING LEVOFLOXACIN 750 MG TABLET 1 TABLET ORALLY ONCE A DAY NOT-TAKING AMPICILLIN 500 MG CAPSULE 1 CAPSULE ORALLY EVERY 6 HRS NOT-TAKING OXYCONTIN 10 MG TABLET ER 12 HOUR ABUSE-DETERRENT 1 TABLET ORALLY EVERY 8 HOURS MEDICATION LIST REVIEWED AND RECONCILED WITH THE PATIENT PAST MEDICAL HISTORY TYPE 2 DIABETES ARTHRITIS SPINAL STENOSIS ALLERGIES SUGAR SUBSTITUTES: LIGHT HEADNESS, DIZZINESS: ALLERGY ASPERTAME: LIGHT HEADEDNESS: ALLERGY GABAPENTIN: VISION BLURS AND HARD TO READ: SIDE EFFECTS LIDODERM: PAIN: SIDE EFFECTS SURGICAL HISTORY RIGHT ANKLE REPAIR- PLATE AND SCREWS RIGHT KNEE- PLATE AND SCREWS LEFT HIP REPLACEMENT 12/15/16 T&A A CHILD AND AN ADULT HOSPITALIZATION/MAJOR DIAGNOSTIC PROCEDURE [facility]- LEFT HIP INFECTION S/P SURGERY 12/23/16 CHILDBIRTH X 3 REVIEW OF SYSTEMS FOLLOW-UP ROS: GASTROENTEROLOGY: DENIES CONSTIPATION . REVIEWED BY: PROVIDER: ÁNGEL BEVERLY . CONSTITUTIONAL: ANY CHANGE IN YOUR MEDICAL CONDITION? NO . CHILLS NO . FEVER NO . INFECTION: DO YOU HAVE NEW INFECTIONS? NO . DO YOU HAVE HISTORY OF MRSA? NO . MUSCULOSKELETAL: ANY NEW PATTERNS OF PAIN OR NUMBNESS? NO . GASTROENTEROLOGY: ANY NEW CHANGE IN BOWEL CONTROL? NO . GENITOURINARY: ANY NEW CHANGE IN BLADDER CONTROL? NO . IS THERE A CHANCE YOU COULD BE ? NO . HEMATOLOGY/LYMPH: DO YOU TAKE ANY BLOOD THINNERS? (FOR EXAMPLE- COUMADIN, PLAVIX, AGGRENOX, PLATEL, PRADAXA, OR XARELTO) NO . WHEN WAS YOUR LAST DOSE? DATE: TIME: . NEUROLOGY: HAVE YOU FALLEN IN THE PAST 6 MONTHS? NO . ANY NEW EXTREMITY NUMBNESS OR WEAKNESS? NO . CARDIOLOGY: DO YOU HAVE A PACEMAKER OR DEFIBRILLATOR? NO . RESPIRATORY: HAVE YOU BEEN SICK IN THE PAST WEEK? NO . FEVER NO . FLU LIKE SYMPTOMS? NO . COUGH NO . INTEGUMENTARY: DO YOU HAVE ANY RASHES OR OPEN SORES? NO . ALLERGIC/IMMUNO: ARE YOU ALLERGIC TO SHELLFISH OR IV DYE? NO . ANY NEW ALLERGIES? NO . PSYCHIATRIC: DO YOU HAVE THOUGHTS OF HURTING YOURSELF OR SOMEONE ELSE? NO . ARE YOU ABUSED, NEGLECTED, OR IN AN UNSAFE ENVIRONMENT? NO . ENDOCRINOLOGY: ARE YOU DIABETIC? YES . OTHER: DO YOU NEED ANY PRESCRIPTIONS? NO, PT TO DISCUSS WITH Suzie BRONSON . IF YES, PLEASE LIST: ____ . ANY NEW PROBLEMS WITH YOUR MEDICATIONS? NO . WHEN DID YOU LAST EAT? ____ . WHEN DID YOU LAST DRINK? ____ . WHAT DID YOU LAST DRINK? ____ . NAME OF PERSON DRIVING YOU HOME? ____ . DO YOU HAVE ANY OTHER QUESTIONS OR CONCERNS NO . VITAL SIGNS WT 211 LBS, HT 66.5 IN, BMI 33.54 INDEX, BP 134/83 MM HG, HR 85 /MIN, RR 18 /MIN, TEMP 98.4 F, OXYGEN SAT % 99%, NA INITIALS AW 1335, REVIEWED BY: KEELEY. EXAMINATION GENERAL EXAMINATION: PSYCHALERT , ORIENTED X 3 , ANXIOUS,BUT NOT TALKATIVE TODAY.. LUNGS:CLEAR TO AUSCULTATION BILATERALLY. HEART:HEART RATE REGULAR. MUSCULOSKELETAL:MUSCLE STRENGTH TESTING 5/5 BILATERAL LOWER EXTREMITIES. TENDER TO PALPATION OVER LEFT DELTOID. FULL ROM OF UPPER EXTREMITIES. CANR USED OFR BALANCE. GAIT SLOW ANTALGIC. POSTURE STOOPED. ASSESSMENTS STATUS POST LEFT HIP REPLACEMENT - Z96.642 (PRIMARY) LEFT ANTERIOR KNEE PAIN - M25.562 LEFT UPPER ARM PAIN - M79.622 TREATMENT STATUS POST LEFT HIP REPLACEMENT REFILL ACETAMINOPHEN-CODEINE #4 TABLET, 300-60 MG, 1 TABLET NEEDED, ORALLY, EVERY 6 -8 HRS PRN PAIN MDD=3, 30 DAY(S), 120, REFILLS 1 NOTES: CALL [facility] ABOUT EVALUATION . CLINICAL NOTES: ISTOP REGISTRY REVIEWED AND DEMNOSTRATES COMPLLIANCE. BRINGS IN MEDICATIONS WHICH IS APPROPRIATE FOR WHAT WAS DISPENSED. RECENT URINE TOXICOLOGY REVIEWED. NO UNAUTHORIZED MEDICATIONS. NO ILLICIT SUBSTANCES AND PRESCRIBED MEDICATIONS WERE PRESENT. PROCEDURE CODES FA211 ESTABILISHED PATIENT [facility] FACILITY CHARGE G8730 PAIN ASSESS POS TOOL F/U PLAN DOC G8427 DOC MEDS VERIFIED W/PT OR RE DISPOSITION & COMMUNICATION FOLLOW UP May (REASON: HIP/KNEE PAIN) ELECTRONICALLY SIGNED BY GRACIELA HUERTA ON 04/30/2017 AT 09:05 AM EDT DISCLAIMER : THIS IS A VISIT SUMMARY EXTRACTED FROM THE [employer] CHART. IT IS NOT A COPY OF THE [employer] PROGRESS NOTE. MTDD
== END ==
LOC: M PAIN 13:30
PROVIDERS: ATTEND Nurse Practitioner Family
DX: G89.29 Other chronic pain (principal); M25.562 Pain in left knee; M79.622 Pain in left upper arm; E11.9 Type 2 diabetes mellitus without complications; M19.90 Unspecified osteoarthritis, unspecified site; M48.00 Spinal stenosis, site unspecified; Z88.5 Allergy status to narcotic agent; Z88.8 Allergy status to other drugs, medicaments and biological substances; Z96.642 Presence of left artificial hip joint; Z91.018 Allergy to other foods; Z79.82 Long term (current) use of aspirin; Z79.84 Long term (current) use of oral hypoglycemic drugs; Z79.899 Other long term (current) drug therapy; Z79.891 Long term (current) use of opiate analgesic

== ENCOUNTER → 2017-05-07 | Outpatient (REF) | payer MEDICARE, OTHER ==
[2017-05-07 20:38] LABS: MEAN CORPUSCULAR HEMOGLOBIN 30.4 pg (27.0-33.0); MEAN CORPUSCULAR HGB CONC 31.7 g/dl (32.0-36.5); MEAN CORPUSCULAR VOLUME 95.9 fl (80.0-96.0); RED CELL DISTRIBUTION WIDTH 13.5 % (11.5-14.5); WHITE BLOOD COUNT 8.3 K/mm3 (4.0-10.0)
[2017-05-07 20:45] LABS: ALBUMIN 3.6 GM/DL (3.2-5.2); ALBUMIN/GLOBULIN RATIO 0.97 (1.00-1.93); BILIRUBIN,TOTAL 0.3 MG/DL (0.2-1.0); CREATININE FOR GFR 1.33 MG/DL (0.55-1.02); POTASSIUM SERUM 5.1 MEQ/L (3.5-5.1); TOTAL PROTEIN 7.3 GM/DL (6.4-8.2)
[2017-05-07 21:54] LABS: EOSINOPHILS 5 % (0-5)
== END ==
LOC: M SFHCLERA 17:07
PROVIDERS: ATTEND Family Medicine
DX: E11.22 Type 2 diabetes mellitus with diabetic chronic kidney disease (principal)
CPT/HCPCS: 80053; 80061; 82043; 83036; 84443; 85007; 85027; 93005; G0463

== ENCOUNTER 2017-05-20 05:20 | Inpatient (IN) | payer MEDICARE, OTHER ==
[~2017-05-20] VITALS: Ht 167.6 cm; Wt 101.4 kg
[2017-05-20] MEDS ORDERED: GUAN2TAB PO (05:35)
[2017-05-20] MEDS ORDERED: CLAR10CA3 PO (05:35)
[2017-05-20] MEDS ORDERED: FERR325T3 PO (05:35)
[2017-05-20] MEDS ORDERED: LOVA20TA2 PO (05:35)
[2017-05-20] MEDS ORDERED: ACET300T52 PO (05:35)
[2017-05-20] MEDS ORDERED: DULO1CAP2 PO (05:35)
[2017-05-20] MEDS ORDERED: METF500T13 PO (05:35)
[2017-05-20] MEDS ORDERED: MORPHINE 2 MG/ML 1ML SYRINGE IV ONE (06:30)
[2017-05-20] MEDS ORDERED: ONDANSETRON 4MG/2ML VIAL (J2405) IV ONE (06:30)
[2017-05-20 06:42] LABS: BASO % 0.3 % (0.0-1.0); EOS # 0.1 10^3/uL (0.0-0.50); EOS % 0.6 % (0.0-3.0); IMMATURE GRANULOCYTE % 0.3 % (0-0); LYMPH # 1.2 10^3/uL (1.5-4.5); MEAN CORPUSCULAR HEMOGLOBIN 30.5 pg (27.0-33.0); MEAN CORPUSCULAR HGB CONC 32.9 g/dl (32.0-36.5); MEAN CORPUSCULAR VOLUME 92.8 fl (80.0-96.0); MONO # 0.8 10^3/uL (0.0-0.8); NEUTROPHILS % 80.8 % (36.0-66.0); PLATELET COUNT, AUTOMATED 330 10^3/uL (150-450); RED CELL DISTRIBUTION WIDTH 12.8 % (11.5-14.5); WHITE BLOOD COUNT 11.1 10^3/uL (4.0-10.0)
[2017-05-20 06:59] LABS: INR 0.96
[2017-05-20] MEDS ORDERED: GI COCKTAIL 50ML BTL(HYOSCYAMINE/MAALOX/LIDOCAINE VISCOUS)(1:3:1) PO ONE (07:00)
[2017-05-20 07:11] LABS: ALBUMIN 3.6 GM/DL (3.2-5.2); ALBUMIN/GLOBULIN RATIO 0.97 (1.00-1.93); ALKALINE PHOSPHATASE 101 U/L (45-117); ALT/SGPT 18 U/L (12-78); AMYLASE 46 U/L (25-115); ANION GAP 7 MEQ/L (8-16); AST/SGOT 11 U/L (15-37); BILIRUBIN,DIRECT 0.1 MG/DL (0.0-0.2); BILIRUBIN,TOTAL 0.4 MG/DL (0.2-1.0); BLOOD UREA NITROGEN 27 MG/DL (7-18); CALCIUM LEVEL 9.5 MG/DL (8.8-10.2); CARBON DIOXIDE LEVEL 33 MEQ/L (21-32); CHLORIDE LEVEL 98 MEQ/L (98-107); CREATININE FOR GFR 1.13 MG/DL (0.55-1.02); GLOMERULAR FILTRATION RATE 50.7 (>39); GLUCOSE, FASTING 262 MG/DL (83-110); SODIUM LEVEL 138 MEQ/L (136-145); TOTAL PROTEIN 7.3 GM/DL (6.4-8.2)
[2017-05-20] MEDS ORDERED: MORPHINE 4 MG/ML 1ML SYRINGE IV ONE (08:00)
[2017-05-20] MEDS ORDERED: ISOVUE-370 76% 100ML VIAL (Q9967) As Ordered ONE (08:07)
[2017-05-20] MEDS ORDERED: KETOROLAC 30 MG/ML VIAL (J1885) IV ONE (09:00)
--- NOTE | 2017-05-20 09:18 | REP ---
Acute abdominal series three views including PA chest and supine upright abdomen: PA chest: There are no comparisons. Lung terry are clear. Cardiac size normal. The praveena, mediastinum, bony thorax unremarkable. There is no free subdiaphragmatic air. Impression: In the PA chest. Abdomen, supine upright views: There are occasional air-fluid levels in nondistended bowel loops in a nonspecific pattern, possibly ileus. There is degenerative disc disease throughout the lumbar spine. There is a left hip arthroplasty. There are pelvic calcifications, likely phleboliths. Impression: Nonspecific bowel gas pattern. Signed by Berny Royal MD 05/20/2017 09:09 A
--- NOTE | 2017-05-20 09:19 | REP ---
CT ABDOMEN AND PELVIS WITH IV CONTRAST: TECHNIQUE: Axial contrast enhanced images from the lung bases to the pubic symphysis using 100 mL Isovue 370 intravenous contrast material with multiplanar reformations. The visualized lung bases demonstrate no infiltrate. The liver demonstrates no evidence of a mass. The gallbladder is moderately distended and contains gallstones. The gallbladder wall appears edematous. There is slight intrahepatic biliary dilatation. The common bile duct appears dilated up to 10 mm. Findings are suspicious for cholecystitis. The spleen, adrenals and pancreas appear unremarkable. Small renal cysts are seen bilaterally. There is no hydronephrosis. There is no abdominal aortic aneurysm. There is no adenopathy. There is no free air or free fluid. There is no bowel wall thickening. There is a small umbilical hernia containing fat. I see no pelvic mass. Metallic prosthesis of the left hip causes adjacent streak artifact somewhat limiting evaluation of the pelvic structures. Compression deformities are noted of L3-L5 vertebral bodies, of indeterminate age. IMPRESSION: Moderately distended gallbladder contains gallstones. There appears to be gallbladder wall edema. There is slight intrahepatic biliary dilatation as well as dilatation of the common bile duct up to 10 mm. Findings are suspicious for cholecystitis. Compression deformities of L3-L5 are of indeterminate age. Signed by Berny Alberto MD 05/20/2017 05:20 P
[2017-05-20] MEDS ORDERED: METOCLOPRAMIDE INJ 10MG/2ML VIAL (J2765) IV ONE (10:00)
[2017-05-20] MEDS ORDERED: FOLI800T PO (10:31)
[2017-05-20] MEDS ORDERED: VITMTA PO (10:31)
[2017-05-20] MEDS ORDERED: FIBE625T27 PO (10:31)
[2017-05-20] MEDS ORDERED: CALC600T31 PO (10:31)
[2017-05-20] MEDS ORDERED: MECL1CHW2 PO (10:31)
[2017-05-20] MEDS ORDERED: VITA200038 PO (10:31)
[2017-05-20] MEDS ORDERED: OCUVTAB4 PO (10:31)
[2017-05-20] MEDS ORDERED: ASPI325T PO (10:32)
[2017-05-20] MEDS: HYDROmorphone HCL 1 MG/ML SYRINGE (J1170) IV PRN ×2 (10:34→15:18)
[2017-05-20] MEDS ORDERED: NS 1,000 ML IV SCH (14:56)
[2017-05-20] MEDS ORDERED: diphenhydrAMINE INJ 50MG/ML VIAL (J1200) IV PRN (15:00)
[2017-05-20] MEDS ORDERED: LR 1,000 ML IV SCH (15:00)
[2017-05-20] MEDS ORDERED: NALOXONE INJ 0.4 MG/1 ML VIAL (J2310) IV PRN (15:00)
[2017-05-20] MEDS ORDERED: KETOROLAC 30 MG/ML VIAL (J1885) IV PRN (15:00)
[2017-05-20] MEDS ORDERED: ONDANSETRON 4MG/2ML VIAL (J2405) IV PRN (15:00)
[2017-05-20] MEDS ORDERED: NALBUPHINE HCL 10 MG/ML AMP (J2300) IV PRN (15:00)
[2017-05-20] MEDS ORDERED: EPIDURAL/PCA KEYS XX PRN (15:00)
[2017-05-20] MEDS ORDERED: PROMETHAZINE INJ 25 MG/ML VIAL (J2550) IV PRN (15:00)
--- NOTE | 2017-05-20 15:01 | REP ---
RIGHT UPPER QUADRANT ULTRASOUND: Real-time sonographic evaluation of the right upper quadrant is performed. The gallbladder is moderately distended. Multiple gallstones are seen as well as intraluminal sludge. Gallbladder wall is thickened up to 5 mm. There is a tiny amount of pericholecystic fluid . The common bile duct is dilated up to 8 mm. No liver mass is seen. The pancreas could not be seen due to overlying bowel gas. Right kidney demonstrates no hydronephrosis with normal size at 10.9 cm in length. A laterally located cortical cyst of the right kidney measures 1.8 x 1.0 x 1.6 cm. IMPRESSION: Moderately distended gallbladder containing sludge and stones with gallbladder wall thickening and a tiny amount of pericholecystic fluid. Common bile duct dilated up to 8 mm. The findings are compatible with cholecystitis. Signed by Berny Alberto MD 05/20/2017 05:22 P
[2017-05-20] MEDS ORDERED: GLUCAGON FOR INJ 1 MG VIAL (J1610) SC PRN (16:15)
[2017-05-20] MEDS ORDERED: DEXTROSE 50% 50 ML SYRINGE IV PRN (16:15)
[2017-05-20] MEDS ORDERED: GLUCOSE 4 GM CHEW TABLET PO PRN (16:15)
--- NOTE | 2017-05-20 16:29 | CR.PDOC ---
[facility] Consultation Consultation DATE OF CONSULTATION: May 20, 2017 at 05:20 PRIMARY CARE PHYSICIAN: Dr. Berny Michelle REFERRING PROVIDER: Prosper Kim M.D. ATTENDING PHYSICIAN: Dr. Badillo REASON FOR CONSULTATION/CHIEF COMPLAINT: . 71-year-old female with past medical history of diabetes mellitus, dyslipidemia , on a kidney disease stage III, arthritis, and chronic back pain due to spinal stenosis presents to the ER with a chief complaint of mid epigastric pain. The patient states that she has been having this pain to a lesser extent over the last 2-3 weeks. However, she notes that the pain culminated last night. She describes the pain as 10 out of 10 in intensity, sharp, and intermittent with associated nausea. She denies any associated fevers, chills, chest pain, shortness of breath, relation to food intake, recent foreign food ingestion, sick contacts, or any vomiting/diarrhea. She denies any history of similar symptoms, and states that she has never had an EGD or colonoscopy in the past. In the ER, a CT scan of the abdomen was consistent with findings suspicious for cholecystitis. Surgery has admitted the patient for management for cholecystitis , and for possible EGD tomorrow for evaluation of peptic ulcer disease. Medicine has been consulted for medical co-management of the patient's chronic co-morbidities, and evaluation of pain. ALLERGIES: Please see below. HOME MEDICATIONS: Please see below. 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 Denies any alcohol, tobacco, or illicit drug use. Functionally independent at baseline. REVIEW OF SYSTEMS: 10 point review of systems negative unless otherwise specified in HPI. PHYSICAL EXAMINATION: VITAL SIGNS: Please see below. GENERAL APPEARANCE: . Awake, alert, oriented HEENT: . Normocephalic, atraumatic RESPIRATORY: . Clear to auscultation bilaterally CARDIOVASCULAR: . Normal rate, normal S1, S2 ABDOMEN: . Soft, tenderness to deep palpation in the mid epigastric/ supraumbilical area. No tenderness to palpation in the right upper quadrant. No guarding, rigidity, or rebound tenderness noted EXTREMITIES: . No tenderness of the lower extremities LABORATORY DATA: Please see below. ASSESSMENT/PLAN: Abdominal Pain possibly 2/2 [place] Peptic Ulcer Disease, Cholecystitis CT Scan of the Abd/Pel, U/S GB noted Agree with IVF Hydration, IV Abx Keep Patient NPO Protonix IV BID, Carafate ordered EKG with no acute ST Changes, Initial troponin neg--will serially trend to r/o underlying ACS Possible EGD in the AM Will f/u with Surgery regarding further plans Intractable Abd Pain 2/2 Above The patient has been started on a HOOP COILER Morphine pump by the surgical service The patient does follow with the pain clinic for chronic pain--we will consult them here to further assess analgesic options Diabetes Mellitus ISS q6h ordered Dyslipidemia Statin CKD Stage IIIB Serum Cr appears to be at baseline DVT Prophylaxis SCDs/TEDs Vital Signs/I&O Vital Signs Date Time Temp Pulse Resp B/P (MAP) Pulse Ox O2 Delivery O2 Flow Rate FiO2 05/20/17 16:06 98.0 82 20 95 Room Air 152/82 (105) Laboratory Data Labs 24H Laboratory Tests 2 05/20/17 06:29: White Blood Count 11.1H, Red Blood Count 4.29, Hemoglobin 13.1, Hematocrit 39.8 , Mean Corpuscular Volume 92.8, Mean Corpuscular Hemoglobin 30.5, Mean Corpuscular Hemoglobin Concent 32.9, Red Cell Distribution Width 12.8, Platelet Count 330, Neutrophils (%) (Auto) 80.8H, Lymphocytes (%) (Auto) 11.0L, Monocytes (%) (Auto) 7.0H, Eosinophils (%) (Auto) 0.6, Basophils (%) (Auto) 0.3 , Neutrophils # (Auto) 9.0H, Lymphocytes # (Auto) 1.2L, Monocytes # (Auto) 0.8, Eosinophils # (Auto) 0.1, Basophils # (Auto) 0.0, Immature Granulocyte # (Auto) 0.0, Nucleated Red Blood Cells % (auto) 0.0, Prothrombin Time 12.9, Prothromb Time International Ratio 0.96, Activated Partial Thromboplast Time 26.0L, Urine Appearance CLEAR, Urine Color YELLOW, Urine pH 8.0, Urine Specific [place] 1.011 , Urine Protein NEGATIVE, Urine Glucose (UA) 3+H, Urine Ketones NEGATIVE, Urine Urobilinogen 0.2, Urine Bilirubin NEGATIVE, Urine Leukocyte Esterase NEGATIVE, Urine Blood NEGATIVE, Urine Nitrite NEGATIVE, Urine WBC (Auto) 1, Urine RBC ( Auto) 0, Urine Hyaline Casts (Auto) 0, Urine Bacteria (Auto) NEGATIVE, Urine Squamous Epithelial Cells 0, Urine Sperm (Auto) , Anion Gap 7L, Glomerular Filtration Rate 50.7, Calcium Level 9.5, Aspartate Amino Transf (AST/SGOT) 11L, Alanine Aminotransferase (ALT/SGPT) 18, Alkaline Phosphatase 101, Total Bilirubin 0.4, Direct Bilirubin 0.1, Total Creatine Kinase 29, Creatine Kinase MB 1.0, Creatine Kinase MB Relative Index 3.44, Troponin I < 0.02, Total Protein 7.3, Albumin 3.6, Albumin/Globulin Ratio 0.97L, Amylase Level 46, Lipase 70L CBC/BMP Laboratory Tests 05/20/17 06:29 Red Blood Count 4.29, Mean Corpuscular Volume 92.8, Mean Corpuscular Hemoglobin 30.5, Mean Corpuscular Hemoglobin Concent 32.9, Red Cell Distribution Width 12.8 , Neutrophils (%) (Auto) 80.8 H, Lymphocytes (%) (Auto) 11.0 L, Monocytes (%) ( Auto) 7.0 H, Eosinophils (%) (Auto) 0.6, Basophils (%) (Auto) 0.3, Neutrophils # (Auto) 9.0 H, Lymphocytes # (Auto) 1.2 L, Monocytes # (Auto) 0.8, Eosinophils # (Auto) 0.1, Basophils # (Auto) 0.0 Allergies Coded Allergies: Aspartame (Verified Allergy, Unknown, dizziness, 05/20/17) Lidocaine (Verified Allergy, Unknown, pain from lidocaine patch, 05/20/17) Home Medications Scheduled (Preservision Areds) 1 Tab Tab, 1 TAB PO BID, (Reported) Aspirin (Aspirin) 325 Mg Tab, 162.5 MG PO DAILY, (Reported) Calcium (Calcium) 600 Mg Tab, 1,200 MG PO BID, (Reported) Cholecalciferol (Vitamin D-3) 2,000 Unit Tab, 2,000 UNIT PO BID, (Reported) Duloxetine Hcl (Duloxetine HCl) 30 Mg Cap, 30 MG PO QHS, (Reported) Ferrous Sulfate (Ferrous Sulfate) 325 Mg Tab, 325 MG PO DAILY, (Reported) Folic Acid (Folic Acid) 800 Mcg Tab, 800 MCG PO DAILY, (Reported) Guanfacine HCl (Guanfacine HCl) 2 Mg Tab, 4 MG PO QHS, (Reported) Loratadine (Claritin) 10 Mg Cap, 10 MG PO DAILY, (Reported) Lovastatin (Lovastatin) 20 Mg Tab, 20 MG PO QHS, (Reported) Metformin Hydrochloride (Metformin HCl) 500 Mg Tab, 500 MG PO BIDWM, (Reported) Multivitamins *[facility] STOCKED* (Thera M Plus *[facility] STOCKED*) 1 Tab Tab, 1 TAB PO DAILY, (Reported) Scheduled PRN (Acetaminophen/Codeine #4 300-60 mg) 1 Tab Tab, 1 TAB PO Q6H PRN for PAIN, ( Reported) Calcium Polycarbophil (Fiber Tabs) 625 Mg Tab, 625 MG PO for BOWEL CARE/ CONSTIPATION, (Reported) Meclizine Hcl (Meclizine HCl) 25 Mg Chw, 25 MG PO DAILY PRN for NAUSEA, ( Reported) PROSPER KIM MD May 20, 2017 16:29
[2017-05-20] MEDS: NS 1,000 ML IV SCH (17:00)
[2017-05-20] MEDS: PIPERACILLIN/TAZOBACTAM SOD 3.375 GM in D5W MINI-BAG PLUS 50 ML IV SCH (17:10)
[2017-05-20] MEDS: MORPHINE 1MG/ML IN 0.9% NACL 100ML IV BAG IV PRN (17:11)
[2017-05-20] MEDS: SUCRALFATE 1 GM TAB PO SCH ×2 (17:12→21:36)
[2017-05-20] MEDS: HumaLOG INSULIN (NovoLOG) PER UNIT SC SCH (17:44)
[2017-05-20] MEDS: DOCUSATE SODIUM 100 MG CAP PO SCH (21:35)
[2017-05-20] MEDS: PANTOPRAZOLE 40MG INJ (PROTONIX) (C9113) IV SCH (21:35)
[2017-05-20] MEDS: VITAMIN D 1,000 INTERNATIONAL UNITS TABLET PO SCH (21:35)
[2017-05-20] MEDS: DULoxetine 30 MG CAP (CYMBALTA) PO SCH (21:35)
[2017-05-20] MEDS: SIMVASTATIN 20 MG TAB PO SCH (21:36)
[2017-05-20 22:00] VITALS: BP 142/66
[2017-05-21] MEDS: NS 1,000 ML IV SCH ×3 (01:00→15:36)
[2017-05-21 02:00] VITALS: BP 121/67
[2017-05-21 06:00] VITALS: BP 142/88
[2017-05-21] MEDS: PIPERACILLIN/TAZOBACTAM SOD 3.375 GM in D5W MINI-BAG PLUS 50 ML IV SCH ×5 (06:00→18:11)
[2017-05-21] MEDS: HumaLOG INSULIN (NovoLOG) PER UNIT SC SCH ×4 (06:00→18:12)
[2017-05-21 06:10] LABS: MEAN CORPUSCULAR HEMOGLOBIN 30.1 pg (27.0-33.0); MEAN CORPUSCULAR HGB CONC 31.8 g/dl (32.0-36.5); MEAN CORPUSCULAR VOLUME 94.9 fl (80.0-96.0)
[2017-05-21 06:13] LABS: WHITE BLOOD COUNT 30.2 10^3/uL (4.0-10.0)
[2017-05-21 06:33] LABS: ALBUMIN 3.2 GM/DL (3.2-5.2); ALBUMIN/GLOBULIN RATIO 0.91 (1.00-1.93); ALKALINE PHOSPHATASE 95 U/L (45-117); ALT/SGPT 21 U/L (12-78); ANION GAP 10 MEQ/L (8-16); AST/SGOT 27 U/L (15-37); BILIRUBIN,TOTAL 0.9 MG/DL (0.2-1.0); BLOOD UREA NITROGEN 24 MG/DL (7-18); CALCIUM LEVEL 8.5 MG/DL (8.8-10.2); CARBON DIOXIDE LEVEL 28 MEQ/L (21-32); CHLORIDE LEVEL 101 MEQ/L (98-107); CREATININE FOR GFR 1.15 MG/DL (0.55-1.02); GLOMERULAR FILTRATION RATE 49.7 (>39); GLUCOSE, FASTING 121 MG/DL (83-110); POTASSIUM SERUM 4.4 MEQ/L (3.5-5.1); SODIUM LEVEL 139 MEQ/L (136-145); TOTAL PROTEIN 6.7 GM/DL (6.4-8.2)
[2017-05-21] MEDS: SUCRALFATE 1 GM TAB PO SCH ×4 (07:30→20:38)
[2017-05-21] MEDS: MULTIVITAMINS/MINERALS THERAP 1 TAB PO SCH (09:00)
[2017-05-21] MEDS: DOCUSATE SODIUM 100 MG CAP PO SCH ×2 (09:00→20:38)
[2017-05-21] MEDS: VITAMIN D 1,000 INTERNATIONAL UNITS TABLET PO SCH ×2 (09:00→20:38)
--- NOTE | 2017-05-21 09:16 | ECGEPIP ---
Stationary ECG Study [facility] - ED Test Date: 2017-05-20 Pat Name: TENISHA REYNAGA Department: Room: - Gender: F [employer]airer [employer]: TaveraB: 1945 Requested By: Emre Simms PA-C Order Number: [id number] Reading MD: Sofia Correa Measurements Intervals [place] Rate: 71 P: 38 ND: 167 QRS: 6 QRSD: 87 T: 29 QT: 363 QTc: 397 Interpretive Statements SINUS RHYTHM WITH OCCASIONAL SUPRAVENTRICULAR PREMATURE COMPLEXES NO PRIOR FOR COMPARISON Electronically Signed On 05-21-2017 9:16:26 EDT by Sofia Correa
[2017-05-21 10:00] VITALS: BP 143/87
--- NOTE | 2017-05-21 10:17 | IPNPDOC ---
Date Seen The patient was seen on 05/21/17. Progress Note SUBJECTIVE: 71-year-old female with past medical history of diabetes mellitus, dyslipidemia, on a kidney disease stage III, arthritis, and chronic back pain due to spinal stenosis presents to the ER with a chief complaint of mid epigastric pain for a 2 to 3 week duration. Last night the pain became 10 out of 10 in intensity, sharp, and intermittent with associated nausea. She denies any associated fevers, chills, chest pain, shortness of breath, relation to food intake, recent foreign food ingestion, sick contacts, or any vomiting/ diarrhea. A CT scan was performed the ED. The CT scan was read as moderately distended gallbladder containing gallstones. There also appeared to be gallbladder wall edema, with a slight intrahepatic biliary dilation as well as dilation of the common bile duct 10 mm. These findings were suspicious for cholecystitis. Surgery was counseled as a result This morning patient says the pain is improved. She is currently on DIE CAST SUPERVISOR for pain control. Patient appeared slightly confused and had difficulty finding words. PHYSICAL EXAMINATION: VITAL SIGNS: Please see below. GENERAL: Slightly confused adult female, difficulty finding her words CARDIOVASCULAR: S1 and S2 present, no murmurs, no rubs, no gallops RESPIRATORY: Lungs are clear to auscultate. ABDOMINAL: To palpate on the right upper quadrant. Patient stated the pain radiates to the back side on her right, NEUROLOGICAL: No numbness or tingling PSYCHOLOGICAL: Patient appears slightly confused LABORATORY DATA: Please see below. MICROBIOLOGY: Please see below. IMAGING: CT abdomen impression was: Moderately distended gallbladder contains gallstones. There appears to be gallbladder wall edema. There is slight intrahepatic biliary dilatation as well as dilatation of the common bile duct up to 10 mm. Findings are suspicious for cholecystitis. Gallbladder ultrasound on 05/20/17: Moderately distended gallbladder containing sludge and stones with gallbladder wall thickening and a tiny amount of pericholecystic fluid. Common bile duct dilated up to 8 mm. The findings are compatible with cholecystitis. ASSESSMENT AND PLAN: 71-year-old female with past medical history with abdominal pain, CT was suspicious for cholecystitis. She was admitted, pain was controlled DIE CAST SUPERVISOR pump. Overnight patient rested comfortably. However this morning patient's white count has jumped 30.2, however patient remains afebrile. Plan this morning is to preform a HIDA scan. This will be followed by gallbladder abscess drainage. It is my hope that this would improve patient's clinical course. Patient's white count monitored and trended tomorrow. VS, I&O, 24H, Fishbone Vital Signs/I&O Vital Signs Date Time Temp Pulse Resp B/P (MAP) Pulse Ox O2 Delivery O2 Flow Rate FiO2 05/21/17 06:00 98.2 105 16 142/88 (106) 97 Nasal Cannula 2.0 I&O- Last 24 Hours up to 6 AM 05/22/17 06:00 Intake Total 0 ml Output Total 0 ml Balance 0 ml Laboratory Data 24H LABS Laboratory Tests 2 05/20/17 17:27: Bedside Glucose (Misc Panel) 221H 05/20/17 19:53: Bedside Glucose (Misc Panel) 224H 05/20/17 22:19: Total Creatine Kinase 64#, Creatine Kinase MB 1.0, Creatine Kinase MB Relative Index 1.56, Troponin I < 0.02 05/21/17 00:29: Bedside Glucose (Misc Panel) 174H 05/21/17 05:39: Anion Gap 10, Glomerular Filtration Rate 49.7, Blood Urea Nitrogen 24H, Creatinine 1.15H, Sodium Level 139, Potassium Level 4.4, Chloride Level 101, Carbon Dioxide Level 28, Calcium Level 8.5L, Aspartate Amino Transf (AST/SGOT) 27, Alanine Aminotransferase (ALT/SGPT) 21, Total Creatine Kinase 57, Alkaline Phosphatase 95, Total Bilirubin 0.9#, Total Protein 6.7, Albumin 3.2, Creatine Kinase MB 1.0, Creatine Kinase MB Relative Index 1.75, Troponin I < 0.02, Albumin/Globulin Ratio 0.91L, Lipase 41L CBC/BMP Laboratory Tests 05/21/17 05:39 Red Blood Count 4.28, Mean Corpuscular Volume 94.9, Mean Corpuscular Hemoglobin 30.1, Mean Corpuscular Hemoglobin Concent 31.8 L, Red Cell Distribution Width 13.0, Calcium Level 8.5 L, Aspartate Amino Transf (AST/SGOT) 27, Alanine Aminotransferase (ALT/SGPT) 21, Total Creatine Kinase 57, Alkaline Phosphatase 95, Total Bilirubin 0.9 #, Total Protein 6.7, Albumin 3.2 GME ATTESTATION GME ATTESTATION My preceptor for this patient encounter was physically present in the building during the encounter and was fully available. As needed, all aspects of the patient interview, examination, medical decision making process, and medical care plan development were reviewed and approved by the preceptor. Preceptor is aware and concurs with the plan as stated in the body of this note and will attest to such by his/her cosignature. JOSELIN HOLT DO May 21, 2017 10:17
[2017-05-21] MEDS: PANTOPRAZOLE 40MG INJ (PROTONIX) (C9113) IV SCH ×2 (10:39→20:38)
--- NOTE | 2017-05-21 12:36 | IPN ---
DATE: 05/21/2017 This is a 71-year-old female seen at bedside admitted last evening by surgery for abdominal pain and possible acute cholecystitis. She is due for a HIDA scan today. She denies any chest pain, nausea, vomiting. She does continue to have some colicky type upper abdominal pain. OBJECTIVE: Temperature is 98.2, pulse 66, respiratory rate 15 and nonlabored, blood pressure (BP) 121/67, SPO2 is 100% on 2 liters. General: The patient appears to be in no acute distress. She is alert, pleasant. HEENT: Unremarkable. Lungs: Clear. Heart: Regular rate and rhythm. Abdomen: Vague abdominal tenderness. Positive bowel sounds. No masses or rebound. LABORATORY DATA: White count is 30,000, hemoglobin 12.9 and platelets 254,000. Sodium 139, potassium 4.4, chloride 101, bicarb 28, anion gap 10, BUN is 24, creatinine 1.15, glucose 121, total bilirubin 0.9, AST 27, ALT 21, alkaline phosphatase 95, troponin less than 0.02 times three. ASSESSMENT/PLAN: 1. Abdominal pain thought to be related to underlying gallbladder disease. 2. Elevated leukocytosis. Again, likely related to underlying abdominal disease. Will defer to surgery. She is scheduled for a HIDA scan later today. 3. Diabetes. Will continue with sliding scale coverage and fingersticks. 4. Dyslipidemia. Continue statin. 5. Chronic kidney disease (CKD) stage III. Continue to follow creatinine and renal function. 6. Deep vein thrombosis (DVT) prophylaxis. Thromboembolic deterrents (TEDS) and sequentials. DISPOSITION: The patient continues nothing by mouth (n.p.o.). She is on IV Protonix and Carafate. Surgery is on board regarding her underlying abdominal issues.
[2017-05-21 14:00] VITALS: BP 141/79
--- NOTE | 2017-05-21 14:35 | REP ---
HIDA SCAN: Following the intravenous administration of 6.6 millicuries technetium 99, Mebrofenin, multiple images are performed up to 3 hours post injection. There is passage of radiotracer into the small bowel. However, the gallbladder is not visualized on delayed images up to 3 hours post injection. Finding are consistent with acute cholecystitis. Signed by Berny Alberto MD 05/21/2017 05:08 P
--- NOTE | 2017-05-21 15:37 | HPE ---
DATE OF ADMISSION: 05/20/2017 BRIEF HISTORY OF PRESENT ILLNESS: The patient is a 71-year-old female who has had pain over the last 2-3 weeks, abdominal pain that has been mid abdominal area radiating to her back. She states that, however, over the last 48 hours, she has noticed an increase in pain and over the last 24 hours, it seemed to be much worse. She came to the emergency room with severe abdominal pain and was given pain medication for this and does not recall any changes with diet. It does not seem to make a difference with eating, drinking, food, or bowel movements. She does not complain of any diarrhea. No constipation. No blood per rectum. She has not had an upper or lower endoscopy previously. The patient describes her abdominal pain as mid abdominal pain, periumbilical pain, stretching out across the midabdomen. However, with her examination today, she is acutely tender in the epigastric area. No right subcostal tenderness is appreciated. Her white count is 11,000 with normal liver function tests. The CT scan was performed that showed some cholecystitis with some questionable common bile duct dilatation. Gallbladder ultrasound was also performed and revealed not as much gallbladder wall thickening as appreciated on the CT scan and no significant common bile duct dilatation per se. The patient does not complain of nausea or vomiting and mostly her pain is periumbilical pain per se. PAST MEDICAL HISTORY: Significant for: 1. History of diabetes mellitus. 2. Hypercholesterolemia. 3. Chronic renal disease. 4. Osteoarthritis. 5. History of spinal stenosis with chronic back pain. 6. History of ankle surgery. 7. Knee surgery. 8. Left hip surgery. 9. Tonsillectomy and adenoidectomy. MEDICATIONS: From home include: Aspirin, fiber tablets, iron, guaifenesin, loratadine, meclizine, metformin, PreserVision, Tylenol with codeine, calcium, and folic acid. PHYSICAL EXAMINATION: Reveals a 71-year-old female who looks stated age. HEENT is unremarkable. Neck is supple without adenopathy. Lungs are clear to auscultation without crackles, wheezes or rhonchi. Heart is regular. Abdomen is soft, nondistended. She does have some tenderness in the epigastric area without significant guarding or rebound. No right upper quadrant tenderness is appreciated. No other masses are appreciated. Extremities are warm, well-perfused relatively, not distended. IMPRESSION AND PLAN: 1. Abdominal pain. The patient has abdominal pain and tenderness mostly in the epigastric area and my concern is that she may have gastritis or gastroduodenitis causing some of this pain that is radiating to her back. Thus, we will start her on some proton pump inhibitors as well as Carafate. We will see how she does with this overnight. 2. Cholecystitis. Although the x-rays are very convincing for cholecystitis, her abdominal examination is not. I am not exactly sure why this is the case. I will start her on some antibiotics and we will see how she does over the ensuing 12-24 hours. Depending on her symptoms if they are still not convincing for cholecystitis and it still epigastric area, she may need an upper GI. However, if she is developing right upper quadrant pain, we may consider a hepatobiliary (HIDA) scan. Given her medication use, chronic pain problems and overall general medical issues, I would like a hospitalist consult. We will have them involved in her care to assist us with her management.
[2017-05-21] MEDS: DULoxetine 30 MG CAP (CYMBALTA) PO SCH (20:38)
[2017-05-21] MEDS: SIMVASTATIN 20 MG TAB PO SCH (20:38)
[2017-05-21 22:00] VITALS: BP 148/70
--- NOTE | 2017-05-21 22:16 | ECGEPIP ---
Stationary ECG Study [facility] Test Date: 2017-05-21 Pat Name: TENISHA REYNAGA Department: Room: [place] [address] Gender: F Staff Research Scientist: ESTEAFNIA : [id number] Requested By: JOSE Larsen Order Number: [id number] Reading MD: Nader Penn Measurements Intervals [place] Rate: 94 P: 27 KS: 151 QRS: -10 QRSD: 98 T: 1 QT: 329 QTc: 412 Interpretive Statements SINUS RHYTHM WITH FREQUENT SUPRAVENTRICULAR PREMATURE COMPLEXES ABNORMAL RHYTHM ECG LAST TRACING ON 05/20/2017 AT 6:45:52, NO SIGNIFICANT CHANGES Electronically Signed On 05-21-2017 22:16:47 EDT by Nader Penn
[2017-05-22] VITALS (11 sets, daily range): BP systolic 113–182; BP diastolic 68–95
[2017-05-22] MEDS: PIPERACILLIN/TAZOBACTAM SOD 3.375 GM in D5W MINI-BAG PLUS 50 ML IV SCH ×2 (00:46→06:04)
[2017-05-22] MEDS: NS 1,000 ML IV SCH ×3 (00:46→18:36)
[2017-05-22] MEDS: HumaLOG INSULIN (NovoLOG) PER UNIT SC SCH ×4 (06:00→18:36)
[2017-05-22 06:58] LABS: MEAN CORPUSCULAR HEMOGLOBIN 29.8 pg (27.0-33.0); MEAN CORPUSCULAR HGB CONC 31.1 g/dl (32.0-36.5); MEAN CORPUSCULAR VOLUME 95.8 fl (80.0-96.0); RED CELL DISTRIBUTION WIDTH 13.3 % (11.5-14.5)
[2017-05-22 06:59] LABS: WHITE BLOOD COUNT 31.4 10^3/uL (4.0-10.0)
[2017-05-22 07:31] LABS: ALBUMIN 2.7 GM/DL (3.2-5.2); ALBUMIN/GLOBULIN RATIO 0.69 (1.00-1.93); BILIRUBIN,TOTAL 1.1 MG/DL (0.2-1.0); CALCIUM LEVEL 8.5 MG/DL (8.8-10.2); CREATININE FOR GFR 1.1 MG/DL (0.55-1.02); GLOMERULAR FILTRATION RATE 52.3 (>39); POTASSIUM SERUM 3.5 MEQ/L (3.5-5.1); TOTAL PROTEIN 6.6 GM/DL (6.4-8.2)
[2017-05-22] MEDS: SUCRALFATE 1 GM TAB PO SCH ×4 (08:56→21:34)
[2017-05-22] MEDS: DOCUSATE SODIUM 100 MG CAP PO SCH ×2 (08:57→21:34)
[2017-05-22] MEDS: PANTOPRAZOLE 40MG INJ (PROTONIX) (C9113) IV SCH ×2 (08:57→21:33)
[2017-05-22] MEDS: MULTIVITAMINS/MINERALS THERAP 1 TAB PO SCH (08:57)
[2017-05-22] MEDS: VITAMIN D 1,000 INTERNATIONAL UNITS TABLET PO SCH ×2 (08:57→21:33)
[2017-05-22] MEDS ORDERED: INFLUENZA VIRUS VACCINE HIGH DOSE 0.5 ML SYRINGE (90662) IM ONE (09:00)
[2017-05-22] MEDS ORDERED: PREVNAR 13 VACCINE SYRINGE (CPT CODE:90670) IM ONE (09:00)
--- NOTE | 2017-05-22 11:21 | IPNPDOC ---
Date Seen The patient was seen on 05/22/17. Progress Note SUBJECTIVE: 71-year-old female seen at bedside. Resting comfortably positive HIDA scan noted from yesterday. Feels her abdominal pains about the same less nausea or vomiting. Denies chest pain, shortness of breath. No overnight issues. No fevers. OBJECTIVE PHYSICAL EXAMINATION: VITAL SIGNS: Please see below. GENERAL: No acute distress HEENT: Unremarkable CARDIOVASCULAR: Regular rate and rhythm. RESPIRATORY: To auscultation. ABDOMINAL: Vague right upper quadrant tenderness. No rebound. Positive bowel sounds are noted. EXTREMITIES: No edema, no calf tenderness NEUROLOGICAL: Cranial nerves II through XII appear to be intact grossly PSYCHOLOGICAL: Negative LABORATORY DATA: Please see below. MICROBIOLOGY: Please see below. IMAGING: HIDA scan positive for acute cholecystitis DVT prophylaxis ordered?: Subcutaneous heparin ASSESSMENT AND PLAN: 71-year-old female with acute cholecystitis and leukocytosis PROBLEMS: 1. Abdominal pain with confirmed acute cholecystitis on HIDA scan: Currently on IV Zosyn and defer any surgical intervention to Dr. Badillo.. 2. Worsening leukocytosis: Likely secondary to acute cholecystitis. Continue antibiotics and defer to Dr. Badillo for any further intervention. 3. Diabetes2: Fingersticks with sliding scale adjustment for coverage. 4. Dyslipidemia: continue Statin 5. DVT prophylaxis: started on Heparin SQ DISPOSITION: Continue iv Zosyn, Protonix and carafate. Defer to surgery regarding her cholecystitis. Likely be hospitalized another few days. VS, I&O, 24H, Fishbone Vital Signs/I&O Vital Signs Date Time Temp Pulse Resp B/P (MAP) Pulse Ox O2 Delivery O2 Flow Rate FiO2 05/22/17 10:00 97.9 87 16 150/79 (102) 98 Nasal Cannula 1.0 I&O- Last 24 Hours up to 6 AM 05/23/17 06:00 Intake Total 50 ml Output Total 0 ml Balance 50 ml Laboratory Data 24H LABS Laboratory Tests 2 05/21/17 12:31: Bedside Glucose (Misc Panel) 121H 05/21/17 14:41: Total Creatine Kinase 31, Creatine Kinase MB 1.0, Creatine Kinase MB Relative Index 3.22, Troponin I < 0.02 05/21/17 18:07: Bedside Glucose (Misc Panel) 182H 05/21/17 23:42: Bedside Glucose (Misc Panel) 164H 05/22/17 05:57: Bedside Glucose (Misc Panel) 127H 05/22/17 06:20: Anion Gap 7L, Glomerular Filtration Rate 52.3, Blood Urea Nitrogen 20H, Creatinine 1.10H, Sodium Level 139, Potassium Level 3.5#, Chloride Level 103, Carbon Dioxide Level 29, Calcium Level 8.5L, Aspartate Amino Transf (AST/SGOT) 14L, Alanine Aminotransferase (ALT/SGPT) 21, Alkaline Phosphatase 98, Total Bilirubin 1.1H, Total Protein 6.6, Albumin 2.7L, Albumin/Globulin Ratio 0.69L, Lipase 27L CBC/BMP Laboratory Tests 05/22/17 06:20 Red Blood Count 3.82 L, Mean Corpuscular Volume 95.8, Mean Corpuscular Hemoglobin 29.8, Mean Corpuscular Hemoglobin Concent 31.1 L, Red Cell Distribution Width 13.3, Calcium Level 8.5 L, Aspartate Amino Transf (AST/SGOT) 14 L, Alanine Aminotransferase (ALT/SGPT) 21, Alkaline Phosphatase 98, Total Bilirubin 1.1 H, Total Protein 6.6, Albumin 2.7 L TEA HAMILTON DO May 22, 2017 11:21
--- NOTE | 2017-05-22 11:22 | IPNPDOC ---
Date Seen The patient was seen on 05/22/17. Progress Note SUBJECTIVE: 71-year-old female with past medical history of diabetes mellitus, dyslipidemia, on a kidney disease stage III, arthritis, and chronic back pain due to spinal stenosis presents to the ER with a chief complaint of mid epigastric pain for a 2 to 3 week duration. Last night the pain became 10 out of 10 in intensity, sharp, and intermittent with associated nausea. She denies any associated fevers, chills, chest pain, shortness of breath, relation to food intake, recent foreign food ingestion, sick contacts, or any vomiting/ diarrhea. A CT scan was performed the ED. The CT scan was read as moderately distended gallbladder containing gallstones. There also appeared to be gallbladder wall edema, with a slight intrahepatic biliary dilation as well as dilation of the common bile duct 10 mm. These findings were suspicious for cholecystitis. Surgery was counseled as a result This morning patient reports that she is feeling okay. However she did ask if her pain medication could be increased, because she feels like she needs more pain medication than the current CIGARETTE PACKER pump. Patient states that she feels that the CIGARETTE PACKER pump is helping her with the pain however a little bit more make her feel better. PHYSICAL EXAMINATION: VITAL SIGNS: Please see below. GENERAL: Slightly confused adult female, difficulty finding her words CARDIOVASCULAR: S1 and S2 present, no murmurs, no rubs, no gallops RESPIRATORY: Lungs are clear to auscultate. ABDOMINAL: To palpate on the right upper quadrant. Patient stated the pain radiates to the back side on her right, the tenderness has improved since yesterday NEUROLOGICAL: No numbness or tingling PSYCHOLOGICAL: Patient appears slightly confused LABORATORY DATA: Please see below. MICROBIOLOGY: Please see below. IMAGING: CT abdomen impression was: Moderately distended gallbladder contains gallstones. There appears to be gallbladder wall edema. There is slight intrahepatic biliary dilatation as well as dilatation of the common bile duct up to 10 mm. Findings are suspicious for cholecystitis. Gallbladder ultrasound on 05/20/17: Moderately distended gallbladder containing sludge and stones with gallbladder wall thickening and a tiny amount of pericholecystic fluid. Common bile duct dilated up to 8 mm. The findings are compatible with cholecystitis. HIDA scan performed on 05/21/2017: Showed findings consistent with acute cholecystitis ASSESSMENT AND PLAN: 71-year-old female with past medical history with abdominal pain, CT was suspicious for cholecystitis. Patient originally presented with a white count of 30.2, this morning her white count had a elevated to 31.4. A gallbladder abscess drainage with anesthesia has been scheduled for patient today. Patient originally refused the procedure yesterday because anesthesia would not be present. Patient's primary concern seems to be pain control, she is currently on a CIGARETTE PACKER pump and she is pushing the button as often as she can. I am expecting her white count to decrease after the gallbladder abscess drainage and proper antibiotics. Once her white count begins to decrease and she has signs of clinical improvement, pain control with the patient can reassess. VS, I&O, 24H, Fishbone Vital Signs/I&O Vital Signs Date Time Temp Pulse Resp B/P (MAP) Pulse Ox O2 Delivery O2 Flow Rate FiO2 05/22/17 10:00 97.9 87 16 150/79 (102) 98 Nasal Cannula 1.0 I&O- Last 24 Hours up to 6 AM 05/23/17 06:00 Intake Total 50 ml Output Total 0 ml Balance 50 ml Laboratory Data 24H LABS Laboratory Tests 2 05/21/17 12:31: Bedside Glucose (Misc Panel) 121H 05/21/17 14:41: Total Creatine Kinase 31, Creatine Kinase MB 1.0, Creatine Kinase MB Relative Index 3.22, Troponin I < 0.02 05/21/17 18:07: Bedside Glucose (Misc Panel) 182H 05/21/17 23:42: Bedside Glucose (Misc Panel) 164H 05/22/17 05:57: Bedside Glucose (Misc Panel) 127H 05/22/17 06:20: Anion Gap 7L, Glomerular Filtration Rate 52.3, Blood Urea Nitrogen 20H, Creatinine 1.10H, Sodium Level 139, Potassium Level 3.5#, Chloride Level 103, Carbon Dioxide Level 29, Calcium Level 8.5L, Aspartate Amino Transf (AST/SGOT) 14L, Alanine Aminotransferase (ALT/SGPT) 21, Alkaline Phosphatase 98, Total Bilirubin 1.1H, Total Protein 6.6, Albumin 2.7L, Albumin/Globulin Ratio 0.69L, Lipase 27L CBC/BMP Laboratory Tests 05/22/17 06:20 Red Blood Count 3.82 L, Mean Corpuscular Volume 95.8, Mean Corpuscular Hemoglobin 29.8, Mean Corpuscular Hemoglobin Concent 31.1 L, Red Cell Distribution Width 13.3, Calcium Level 8.5 L, Aspartate Amino Transf (AST/SGOT) 14 L, Alanine Aminotransferase (ALT/SGPT) 21, Alkaline Phosphatase 98, Total Bilirubin 1.1 H, Total Protein 6.6, Albumin 2.7 L GME ATTESTATION GME ATTESTATION My preceptor for this patient encounter was physically present in the building during the encounter and was fully available. As needed, all aspects of the patient interview, examination, medical decision making process, and medical care plan development were reviewed and approved by the preceptor. Preceptor is aware and concurs with the plan as stated in the body of this note and will attest to such by his/her cosignature. JOSELIN HOLT DO May 22, 2017 11:22
[2017-05-22] MEDS: PIPERACILLIN/TAZOBACTAM SOD 3.375 GM in D5W 50 ML IV SCH ×2 (12:47→18:35)
[2017-05-22] MEDS ORDERED: LIDOCAINE 1% MDV 20ML VIAL As Ordered ONE (13:43)
[2017-05-22] MEDS ORDERED: BUPIVACAINE HCL 0.5% 10 ML VIAL As Ordered ONE (13:54)
[2017-05-22] MEDS ORDERED: fentaNYL 100 MCG/2 ML INJECTION (J3010) As Ordered ONE ×2 (13:54→15:13)
[2017-05-22] MEDS ORDERED: BUPIVACAINE HCL 0.25% 10 ML VIAL As Ordered ONE (13:55)
[2017-05-22] MEDS ORDERED: MIDAZOLAM INJ 2 MG/2 ML VIAL (J2250) As Ordered ONE (13:55)
[2017-05-22] MEDS: HEPARIN SOD (PORCINE) 5000 UNITS/ML VIAL SQ SCH ×2 (14:00→21:33)
[2017-05-22] MEDS: fentaNYL 100 MCG/2 ML INJECTION (J3010) IV PRN ×4 (15:15→15:30)
[2017-05-22] MEDS ORDERED: HYDROmorphone HCL 1 MG/ML SYRINGE (J1170) As Ordered ONE (15:51)
--- NOTE | 2017-05-22 16:23 | REP ---
PERCUTANEOUS CHOLECYSTOSTOMY TUBE PLACEMENT WITH ULTRASOUND GUIDANCE: The procedure was performed by FEDERICO Santana under the direct supervision of Dr. Alberto. The procedure along with its risks, benefits and complications were discussed with the patient prior to the examination. Informed consent was obtained both verbally and written. The patient was identified in the interventional suite and placed in a supine position. The patient was placed under conscious sedation with anesthesia present in the room. Ultrasound was used to interrogate the right upper quadrant. An appropriate site was chosen for needle entry and this area was marked, prepped and draped in the usual sterile fashion. A procedural time out was performed to ensure that the correct patient, site, and procedure were being performed. Local infiltrative anesthesia was achieved using 10 mL of 0.25 Marcaine. A small skin knick was made, a 10-Telugu Skater catheter was advanced through the skin and into the gallbladder. Ultrasound imaging was used to document the placement of the catheter. The catheter was sutured to the skin. 25 mL of brown purulent liquid was aspirated from the gallbladder. This was placed in a sterile container and sent to the lab for further evaluation. Results pending. A soft dressing was applied at the entry site and the patient was taken from the interventional area to recovery. The patient tolerated the procedure well and had no immediate complications. Reviewed by FEDERICO Navarro 05/22/2017 04:28 PEdited and Signed by Berny Alberto MD 05/22/2017 08:02 P
[2017-05-22] MEDS ORDERED: HYDROmorphone HCL 1 MG/ML SYRINGE (J1170) IV PRN (16:30)
[2017-05-22] MEDS: MORPHINE 1MG/ML IN 0.9% NACL 100ML IV BAG IV PRN (19:33)
[2017-05-22] MEDS: DULoxetine 30 MG CAP (CYMBALTA) PO SCH (21:34)
[2017-05-22] MEDS: SIMVASTATIN 20 MG TAB PO SCH (21:34)
[2017-05-23] MEDS: PIPERACILLIN/TAZOBACTAM SOD 3.375 GM in D5W 50 ML IV SCH ×4 (00:16→17:24)
[2017-05-23] MEDS: HumaLOG INSULIN (NovoLOG) PER UNIT SC SCH ×5 (00:16→21:40)
[2017-05-23] MEDS: NS 1,000 ML IV SCH ×2 (01:27→10:58)
[2017-05-23 02:00] VITALS: BP 129/68
[2017-05-23] MEDS: METOCLOPRAMIDE INJ 10MG/2ML VIAL (J2765) IV PRN (04:52)
[2017-05-23 06:00] VITALS: BP 157/87
[2017-05-23] MEDS: HEPARIN SOD (PORCINE) 5000 UNITS/ML VIAL SQ SCH ×3 (06:07→21:48)
[2017-05-23 06:22] LABS: MEAN CORPUSCULAR HEMOGLOBIN 29.7 pg (27.0-33.0); MEAN CORPUSCULAR HGB CONC 30.4 g/dl (32.0-36.5); MEAN CORPUSCULAR VOLUME 97.5 fl (80.0-96.0); RED CELL DISTRIBUTION WIDTH 13.2 % (11.5-14.5)
[2017-05-23 06:45] LABS: ALBUMIN 2.3 GM/DL (3.2-5.2); ALBUMIN/GLOBULIN RATIO 0.59 (1.00-1.93); CALCIUM LEVEL 8.4 MG/DL (8.8-10.2); CREATININE FOR GFR 1.02 MG/DL (0.55-1.02); POTASSIUM SERUM 3.5 MEQ/L (3.5-5.1); TOTAL PROTEIN 6.2 GM/DL (6.4-8.2)
[2017-05-23] MEDS: VITAMIN D 1,000 INTERNATIONAL UNITS TABLET PO SCH ×2 (07:59→21:48)
[2017-05-23] MEDS: SUCRALFATE 1 GM TAB PO SCH ×4 (07:59→21:48)
[2017-05-23] MEDS: DOCUSATE SODIUM 100 MG CAP PO SCH ×2 (07:59→21:48)
[2017-05-23] MEDS: PANTOPRAZOLE 40MG INJ (PROTONIX) (C9113) IV SCH ×2 (08:00→21:48)
[2017-05-23] MEDS: MULTIVITAMINS/MINERALS THERAP 1 TAB PO SCH (08:00)
[2017-05-23 10:00] VITALS: BP 133/72
--- NOTE | 2017-05-23 10:43 | REP ---
Chest PA and lateral views a total of three views, two PA and single lateral: Comparison is the PA chest dated 05/20/2017. There are bibasilar infiltrates and small bilateral pleural effusions as changes from the prior study. The upper lobes are clear. Cardiac size is normal. The praveena, mediastinum, and bony thorax are unchanged. Impression: Bibasilar infiltrates and small bilateral pleural effusions. Signed by Berny Royal MD 05/23/2017 10:35 A
[2017-05-23 14:00] VITALS: BP 151/93
--- NOTE | 2017-05-23 14:11 | IPNPDOC ---
Date Seen The patient was seen on 05/23/17. Progress Note SUBJECTIVE: 71-year-old female resting in bed. She complains of some vague right -sided abdominal flank pain. Drain is in place in the right upper quadrant does appear to have some darkish looking fluid. Overnight she denies fevers, chills, chest pain, shortness of breath, productive sputum, cough. No nausea or vomiting. OBJECTIVE PHYSICAL EXAMINATION: VITAL SIGNS: Please see below. GENERAL: [Alert and oriented 3, no acute distress] HEENT: [Unremarkable] CARDIOVASCULAR: [Regular rate and rhythm]. RESPIRATORY: [Clear auscultation]. ABDOMINAL: [NABS, soft, vague tenderness in the upper abdomen. No rebound epic ambulatory analyst] EXTREMITIES: [No edema, no calf tenderness] NEUROLOGICAL: [Grossly intact] PSYCHOLOGICAL: [Negative] LABORATORY DATA: Please see below. MICROBIOLOGY: Please see below. DVT prophylaxis ordered?: [Yes] ASSESSMENT AND PLAN: This is a 71-year-old female with acute cholecystitis and Leukocytosis. PROBLEMS: 1. Abdominal pain with confirmed acute cholecystitis on HIDA scan: Currently on IV Zosyn and defer any surgical intervention to Dr. Badillo. Currently with gallbladder drain placed by radiology yesterday does appear to be patent cultures are pending. 2. Leukocytosis: Likely secondary to acute cholecystitis. She does have some improvement today with numbers trending downward. Continue antibiotics and defer to Dr. Badillo for any further intervention. 3. Diabetes2: Fingersticks with sliding scale adjustment for coverage. 4. Dyslipidemia: continue Statin 5. DVT prophylaxis: started on Heparin SQ DISPOSITION: Continue iv Zosyn, Protonix and carafate. Defer to surgery regarding her cholecystitis. Likely be hospitalized another few more days. VS, I&O, 24H, [facility] Vital Signs/I&O Vital Signs Date Time Temp Pulse Resp B/P (MAP) Pulse Ox O2 Delivery O2 Flow Rate FiO2 05/23/17 10:00 97.5 120 16 133/72 (92) 95 Nasal Cannula 2.0 I&O- Last 24 Hours up to 6 AM 05/24/17 06:00 Intake Total 50 ml Output Total 0 ml Balance 50 ml Laboratory Data 24H LABS Laboratory Tests 2 05/22/17 18:08: Bedside Glucose (Misc Panel) 146H 05/23/17 00:05: Bedside Glucose (Misc Panel) 131H 05/23/17 05:48: Anion Gap 9, Glomerular Filtration Rate 57.0, Blood Urea Nitrogen 20H, Creatinine 1.02, Sodium Level 140, Potassium Level 3.5, Chloride Level 106, Carbon Dioxide Level 25, Calcium Level 8.4L, Aspartate Amino Transf (AST/SGOT) 19, Alanine Aminotransferase (ALT/SGPT) 18, Alkaline Phosphatase 114, Total Bilirubin 1.0, Total Protein 6.2L, Albumin 2.3L, Albumin/Globulin Ratio 0.59L, Lipase 30L 05/23/17 05:58: Bedside Glucose (Misc Panel) 153H 05/23/17 11:39: Bedside Glucose (Misc Panel) 184H CBC/BMP Laboratory Tests 05/23/17 05:48 Red Blood Count 3.67 L, Mean Corpuscular Volume 97.5 H, Mean Corpuscular Hemoglobin 29.7, Mean Corpuscular Hemoglobin Concent 30.4 L, Red Cell Distribution Width 13.2, Calcium Level 8.4 L, Aspartate Amino Transf (AST/SGOT) 19, Alanine Aminotransferase (ALT/SGPT) 18, Alkaline Phosphatase 114, Total Bilirubin 1.0, Total Protein 6.2 L, Albumin 2.3 L Microbiology Microbiology 05/22/17 Anaerobic Culture, Received Pending 05/22/17 Gram Stain - Final, Resulted 05/22/17 Abscess Culture, Resulted Pending TEA HAMILTON DO May 23, 2017 14:11
--- NOTE | 2017-05-23 15:34 | IPNPDOC ---
Date Seen The patient was seen on 05/23/17. Progress Note SUBJECTIVE: 71-year-old female with past medical history of diabetes mellitus, dyslipidemia, on a kidney disease stage III, arthritis, and chronic back pain due to spinal stenosis presents to the ER with a chief complaint of mid epigastric pain for a 2 to 3 week duration. Last night the pain became 10 out of 10 in intensity, sharp, and intermittent with associated nausea. She denies any associated fevers, chills, chest pain, shortness of breath, relation to food intake, recent foreign food ingestion, sick contacts, or any vomiting/ diarrhea. A CT scan was performed the ED. The CT scan was read as moderately distended gallbladder containing gallstones. There also appeared to be gallbladder wall edema, with a slight intrahepatic biliary dilation as well as dilation of the common bile duct 10 mm. These findings were suspicious for cholecystitis. Surgery was counseled as a result Patient had ultrasound-guided abscess drainage of her gallbladder, with anesthesia. Patient tolerated the procedure just fine. This morning patient appears to be slightly confused, and had difficulty finding words. She keep asking for more pain medication despite being on a BRUSH SANDER pump. PHYSICAL EXAMINATION: VITAL SIGNS: Please see below. GENERAL: Slightly confused adult female, difficulty finding her words CARDIOVASCULAR: S1 and S2 present, no murmurs, no rubs, no gallops RESPIRATORY: Lungs are clear to auscultate. ABDOMINAL: Patient stated the pain radiates to the back side on her right, the tenderness has improved since yesterday. Moderate tender to palpate on the upper abdomin. NEUROLOGICAL: No numbness or tingling PSYCHOLOGICAL: Patient appears slightly confused, she had difficulty finding words and could not stay on topic LABORATORY DATA: Please see below. MICROBIOLOGY: Please see below. IMAGING: CT abdomen impression was: Moderately distended gallbladder contains gallstones. There appears to be gallbladder wall edema. There is slight intrahepatic biliary dilatation as well as dilatation of the common bile duct up to 10 mm. Findings are suspicious for cholecystitis. Gallbladder ultrasound on 05/20/17: Moderately distended gallbladder containing sludge and stones with gallbladder wall thickening and a tiny amount of pericholecystic fluid. Common bile duct dilated up to 8 mm. The findings are compatible with cholecystitis. HIDA scan performed on 05/21/2017: Showed findings consistent with acute cholecystitis ASSESSMENT AND PLAN: 71-year-old female with past medical history with abdominal pain, CT was suspicious for cholecystitis. On 05/14/2017, patient had CT-guided abscess drainage of her gallbladder. Cultures are pending. Patient's white count dropped from 31.4 to 21.0. Patient stated that she needed more pain medication, despite being on a BRUSH SANDER pump. We started her on clear liquid diet, and she is tolerating that fine. I expect patient to make continued improvement both clinically and laboratory values. Will monitor patient over the weekend, with possible discharge after her white count normalized and her pain is controlled. VS, I&O, 24H, [facility] Vital Signs/I&O Vital Signs Date Time Temp Pulse Resp B/P (MAP) Pulse Ox O2 Delivery O2 Flow Rate FiO2 05/23/17 14:00 98.3 114 23 151/93 (112) 93 Nasal Cannula 2.0 I&O- Last 24 Hours up to 6 AM 05/24/17 06:00 Intake Total 650 ml Output Total 0 ml Balance 650 ml Laboratory Data 24H LABS Laboratory Tests 2 05/22/17 18:08: Bedside Glucose (Misc Panel) 146H 05/23/17 00:05: Bedside Glucose (Misc Panel) 131H 05/23/17 05:48: Anion Gap 9, Glomerular Filtration Rate 57.0, Blood Urea Nitrogen 20H, Creatinine 1.02, Sodium Level 140, Potassium Level 3.5, Chloride Level 106, Carbon Dioxide Level 25, Calcium Level 8.4L, Aspartate Amino Transf (AST/SGOT) 19, Alanine Aminotransferase (ALT/SGPT) 18, Alkaline Phosphatase 114, Total Bilirubin 1.0, Total Protein 6.2L, Albumin 2.3L, Albumin/Globulin Ratio 0.59L, Lipase 30L 05/23/17 05:58: Bedside Glucose (Misc Panel) 153H 05/23/17 11:39: Bedside Glucose (Misc Panel) 184H CBC/BMP Laboratory Tests 05/23/17 05:48 Red Blood Count 3.67 L, Mean Corpuscular Volume 97.5 H, Mean Corpuscular Hemoglobin 29.7, Mean Corpuscular Hemoglobin Concent 30.4 L, Red Cell Distribution Width 13.2, Calcium Level 8.4 L, Aspartate Amino Transf (AST/SGOT) 19, Alanine Aminotransferase (ALT/SGPT) 18, Alkaline Phosphatase 114, Total Bilirubin 1.0, Total Protein 6.2 L, Albumin 2.3 L Microbiology Microbiology 05/22/17 Anaerobic Culture, Received Pending 05/22/17 Gram Stain - Final, Resulted 05/22/17 Abscess Culture, Resulted Pending GME ATTESTATION GME ATTESTATION My preceptor for this patient encounter was physically present in the building during the encounter and was fully available. As needed, all aspects of the patient interview, examination, medical decision making process, and medical care plan development were reviewed and approved by the preceptor. Preceptor is aware and concurs with the plan as stated in the body of this note and will attest to such by his/her cosignature. JOSELIN HOLT DO May 23, 2017 15:34
[2017-05-23] MEDS ORDERED: GLUCOSE 4 GM CHEW TABLET PO PRN (17:15)
[2017-05-23] MEDS ORDERED: DEXTROSE 50% 50 ML SYRINGE IV PRN (17:15)
[2017-05-23] MEDS ORDERED: GLUCAGON FOR INJ 1 MG VIAL (J1610) SC PRN (17:15)
[2017-05-23 18:00] VITALS: BP 145/89
[2017-05-23] MEDS: SIMVASTATIN 20 MG TAB PO SCH (21:48)
[2017-05-23] MEDS: DULoxetine 30 MG CAP (CYMBALTA) PO SCH (21:48)
[2017-05-23 22:00] VITALS: BP 137/88
[2017-05-24] MEDS: PIPERACILLIN/TAZOBACTAM SOD 3.375 GM in D5W 50 ML IV SCH ×4 (00:15→17:46)
[2017-05-24 02:00] VITALS: BP 152/94
[2017-05-24] MEDS: ONDANSETRON 4MG/2ML VIAL (J2405) IV PRN (04:53)
[2017-05-24] MEDS: HEPARIN SOD (PORCINE) 5000 UNITS/ML VIAL SQ SCH ×3 (05:43→21:34)
[2017-05-24 06:00] VITALS: BP_SYST 104; BP_SYST 142; BP_DIAS 50; BP_DIAS 78
[2017-05-24 06:15] LABS: MEAN CORPUSCULAR HEMOGLOBIN 29.9 pg (27.0-33.0); MEAN CORPUSCULAR HGB CONC 31.3 g/dl (32.0-36.5); MEAN CORPUSCULAR VOLUME 95.6 fl (80.0-96.0); WHITE BLOOD COUNT 12.8 10^3/uL (4.0-10.0)
[2017-05-24 06:45] LABS: ALBUMIN 2.1 GM/DL (3.2-5.2); ALKALINE PHOSPHATASE 104 U/L (45-117); ALT/SGPT 15 U/L (12-78); ANION GAP 6 MEQ/L (8-16); AST/SGOT 10 U/L (15-37); BLOOD UREA NITROGEN 16 MG/DL (7-18); CALCIUM LEVEL 8.2 MG/DL (8.8-10.2); CARBON DIOXIDE LEVEL 27 MEQ/L (21-32); CHLORIDE LEVEL 106 MEQ/L (98-107); CREATININE FOR GFR 0.95 MG/DL (0.55-1.02); GLOMERULAR FILTRATION RATE > 60.0 (>39); GLUCOSE, FASTING 202 MG/DL (83-110); POTASSIUM SERUM 3.1 MEQ/L (3.5-5.1); SODIUM LEVEL 139 MEQ/L (136-145); TOTAL PROTEIN 6.3 GM/DL (6.4-8.2)
[2017-05-24] MEDS: HumaLOG INSULIN (NovoLOG) PER UNIT SC SCH ×5 (08:54→21:00)
[2017-05-24] MEDS: PANTOPRAZOLE 40MG INJ (PROTONIX) (C9113) IV SCH ×2 (08:54→21:33)
[2017-05-24] MEDS: DOCUSATE SODIUM 100 MG CAP PO SCH ×2 (08:55→21:34)
[2017-05-24] MEDS: MULTIVITAMINS/MINERALS THERAP 1 TAB PO SCH (08:55)
[2017-05-24] MEDS: SUCRALFATE 1 GM TAB PO SCH ×4 (08:55→21:34)
[2017-05-24] MEDS: VITAMIN D 1,000 INTERNATIONAL UNITS TABLET PO SCH ×2 (08:55→21:34)
[2017-05-24] MEDS ORDERED: POTASSIUM CHLORIDE 10 MEQ SR TABLET PO ONE (09:00)
[2017-05-24] MEDS ORDERED: MOM 30ML SUSPENSION UDC PO PRN (09:00)
[2017-05-24] MEDS: MIRALAX *UNIT DOSE* 17GM PACKET PO SCH (09:15)
[2017-05-24 10:00] VITALS: BP 156/99
--- NOTE | 2017-05-24 12:16 | IPNPDOC ---
Date Seen The patient was seen on 05/24/17. Progress Note SUBJECTIVE: Patient is a 71-year-old female seen at bedside, slightly nauseated this morning. Still has some abdominal discomfort and is on clear liquids. She denies fevers, chills, vomiting, no chest pain, palpitation. States her abdominal pain is about the same. OBJECTIVE PHYSICAL EXAMINATION: VITAL SIGNS: Please see below. GENERAL: No acute distress, alert, oriented 3 HEENT: PERRLA. Throat clear. Neck supple, no adenopathy CARDIOVASCULAR: Regular rate and rhythm. RESPIRATORY: Clear to auscultation but noted diminished bilateral bases sounds. ABDOMINAL: Soft, vague tenderness across the epigastrium to right upper quadrant. Positive bowel sounds. No rebound EXTREMITIES: No edema, no calf tenderness NEUROLOGICAL: Cranial nerves II through XII grossly intact PSYCHOLOGICAL: Negative LABORATORY DATA: Please see below. MICROBIOLOGY: Please see below. DVT prophylaxis ordered?: Yes ASSESSMENT AND PLAN: This is a 71-year-old female with cholecystitis confirmed by HIDA and continues gallbladder drain is in place, appears to be patent. PROBLEMS: .1. Abdominal pain with confirmed acute cholecystitis on HIDA scan: Currently on IV Zosyn and defer any surgical intervention to Dr. Badillo. Currently with gallbladder drain is in place. Cultures are pending. Continue with IV Zosyn. 2. Leukocytosis: Likely secondary to acute cholecystitis. Still slightly elevated but dramatic improvement today. Continue antibiotics and defer to Dr. Badillo for any further intervention. 3. Diabetes2: Fingersticks with sliding scale adjustment for coverage. 4. Dyslipidemia: continue Statin 5. DVT prophylaxis: Heparin SQ DISPOSITION: Continue iv Zosyn, Protonix and carafate. Defer to surgery regarding her cholecystitis. Likely be hospitalized another few more days. VS, I&O, 24H, [facility] Vital Signs/I&O Vital Signs Date Time Temp Pulse Resp B/P (MAP) Pulse Ox O2 Delivery O2 Flow Rate FiO2 05/24/17 10:00 98.7 96 15 156/99 (118) 96 Nasal Cannula 2.0 I&O- Last 24 Hours up to 6 AM 05/25/17 06:00 Intake Total 120 ml Output Total 0 ml Balance 120 ml Laboratory Data 24H LABS Laboratory Tests 2 05/23/17 17:06: Bedside Glucose (Misc Panel) 224H 05/23/17 19:57: Bedside Glucose (Misc Panel) 190H 05/24/17 05:29: Anion Gap 6L, Glomerular Filtration Rate > 60.0, Blood Urea Nitrogen 16, Creatinine 0.95, Sodium Level 139, Potassium Level 3.1L, Chloride Level 106, Carbon Dioxide Level 27, Calcium Level 8.2L, Aspartate Amino Transf (AST/SGOT) 10L, Alanine Aminotransferase (ALT/SGPT) 15, Alkaline Phosphatase 104, Total Bilirubin 1.0, Total Protein 6.3L, Albumin 2.1L, Albumin/Globulin Ratio 0.50L, Lipase 32L 05/24/17 11:20: Bedside Glucose (Misc Panel) 160H CBC/BMP Laboratory Tests 05/24/17 05:29 Red Blood Count 3.41 L, Mean Corpuscular Volume 95.6, Mean Corpuscular Hemoglobin 29.9, Mean Corpuscular Hemoglobin Concent 31.3 L, Red Cell Distribution Width 13.0, Calcium Level 8.2 L, Aspartate Amino Transf (AST/SGOT) 10 L, Alanine Aminotransferase (ALT/SGPT) 15, Alkaline Phosphatase 104, Total Bilirubin 1.0, Total Protein 6.3 L, Albumin 2.1 L Microbiology Microbiology 05/22/17 Anaerobic Culture - Final, Complete 05/22/17 Gram Stain - Final, Complete 05/22/17 Abscess Culture - Final, Complete Citrobacter Freundii TEA HAMILTON DO May 24, 2017 12:16
[2017-05-24 14:00] VITALS: BP 164/99
[2017-05-24] MEDS: amLODIPine 5 MG TAB PO SCH (17:48)
[2017-05-24 18:00] VITALS: BP 168/88
[2017-05-24] MEDS: DULoxetine 30 MG CAP (CYMBALTA) PO SCH (21:34)
[2017-05-24] MEDS: SIMVASTATIN 20 MG TAB PO SCH (21:34)
[2017-05-25] MEDS: PIPERACILLIN/TAZOBACTAM SOD 3.375 GM in D5W 50 ML IV SCH ×3 (00:01→13:29)
[2017-05-25 04:00] VITALS: BP 155/90
[2017-05-25] MEDS: ONDANSETRON 4MG/2ML VIAL (J2405) IV PRN (04:00)
[2017-05-25] MEDS: HEPARIN SOD (PORCINE) 5000 UNITS/ML VIAL SQ SCH ×3 (05:12→21:32)
[2017-05-25] MEDS: amLODIPine 5 MG TAB PO SCH (05:29)
[2017-05-25 05:55] LABS: MEAN CORPUSCULAR HEMOGLOBIN 29.4 pg (27.0-33.0); RED CELL DISTRIBUTION WIDTH 12.8 % (11.5-14.5); WHITE BLOOD COUNT 11.6 10^3/uL (4.0-10.0)
[2017-05-25 06:18] LABS: ALBUMIN 2.1 GM/DL (3.2-5.2); ALKALINE PHOSPHATASE 101 U/L (45-117); ALT/SGPT 12 U/L (12-78); ANION GAP 7 MEQ/L (8-16); AST/SGOT 9 U/L (15-37); BILIRUBIN,TOTAL 0.8 MG/DL (0.2-1.0); BLOOD UREA NITROGEN 15 MG/DL (7-18); CALCIUM LEVEL 8.2 MG/DL (8.8-10.2); CARBON DIOXIDE LEVEL 27 MEQ/L (21-32); CHLORIDE LEVEL 105 MEQ/L (98-107); CREATININE FOR GFR 0.82 MG/DL (0.55-1.02); GLOMERULAR FILTRATION RATE > 60.0 (>39); GLUCOSE, FASTING 176 MG/DL (83-110); POTASSIUM SERUM 3.6 MEQ/L (3.5-5.1); SODIUM LEVEL 139 MEQ/L (136-145); TOTAL PROTEIN 6.3 GM/DL (6.4-8.2)
[2017-05-25 08:15] VITALS: BP 200/104
[2017-05-25] MEDS: PANTOPRAZOLE 40MG INJ (PROTONIX) (C9113) IV SCH (09:05)
[2017-05-25] MEDS: HumaLOG INSULIN (NovoLOG) PER UNIT SC SCH ×4 (09:05→21:00)
[2017-05-25] MEDS: MULTIVITAMINS/MINERALS THERAP 1 TAB PO SCH (09:05)
[2017-05-25] MEDS: SUCRALFATE 1 GM TAB PO SCH ×4 (09:05→21:31)
[2017-05-25] MEDS: MIRALAX *UNIT DOSE* 17GM PACKET PO SCH (09:06)
[2017-05-25] MEDS: VITAMIN D 1,000 INTERNATIONAL UNITS TABLET PO SCH ×2 (09:06→21:00)
[2017-05-25] MEDS: DOCUSATE SODIUM 100 MG CAP PO SCH ×2 (09:06→21:00)
[2017-05-25] MEDS ORDERED: amLODIPine 5 MG TAB PO ONE (09:15)
--- NOTE | 2017-05-25 09:48 | IPNPDOC ---
Subjective General Date/Time Seen The patient was seen on 05/25/17 at 09:47. Subject Chief Complaint/History The patient is a 71-year-old female admitted with a reason for visit of Acute Cholecystitis,Epigastric Abdominal Pain. Current Medications Current Medications Current Medications Amlodipine Besylate (Norvasc) 5 mg DAILY PO Last administered on 05/25/17 05: 29; Start 05/24/17 at 17:00; Stop 05/25/17 at 09:13; Status DC Amlodipine Besylate (Norvasc) 10 mg DAILY PO ; Start 05/26/17 at 09:00; Stop at 08:59 Dextrose (Dextrose 50%) 25 ml ASDIRECTED PRN IV SEE LABEL COMMENTS; Start 05/20 at 16:15; Stop 05/23/17 at 17:16; Status DC Dextrose (Dextrose 50%) 25 ml ASDIRECTED PRN IV SEE LABEL COMMENTS; Start 05/23 at 17:15; Stop 06/22/17 at 17:14 Diphenhydramine HCl (Benadryl) 12.5 mg Q4HP PRN IV ITCHING; Start 05/20/17 at 15:00; Stop 06/19/17 at 14:59 Docusate Sodium (Colace) 100 mg BID PO Last administered on 05/25/17 09:06; Start 05/20/17 at 21:00; Stop 06/19/17 at 20:59 Duloxetine HCl (Cymbalta) 30 mg QHS PO Last administered on 05/24/17 21:34; Start 05/20/17 at 21:00; Stop 06/19/17 at 20:59 Fentanyl Citrate (Sublimaze) 25 mcg Q5MP PRN IV PAIN Last administered on 15:30; Start 05/22/17 at 16:30; Stop 05/22/17 at 17:30; Status DC Glucagon (Glucagon) 1 mg ASDIRECTED PRN SC SEE LABEL COMMENTS; Start 05/20/17 at 16:15; Stop 05/23/17 at 17:16; Status DC Glucagon (Glucagon) 1 mg ASDIRECTED PRN SC SEE LABEL COMMENTS; Start 05/23/17 at 17:15; Stop 06/22/17 at 17:14 Glucose (Glucose) 16 GM ASDIRECTED PRN PO SEE LABEL COMMENTS; Start 05/20/17 at 16:15; Stop 05/23/17 at 17:16; Status DC Glucose (Glucose) 16 GM ASDIRECTED PRN PO SEE LABEL COMMENTS; Start 05/23/17 at 17:15; Stop 06/22/17 at 17:14 Heparin Sodium (Porcine) (Heparin) 5,000 units Q8H SQ Last administered on 05/25 05:12; Start 05/22/17 at 14:00; Stop 05/27/17 at 13:59 Home Med (Med Rec Complete!) ASDIRECTED XX ; Start 05/20/17 at 10:45; Stop at 10:45; Status DC Hydromorphone HCl (Dilaudid) 0.2 mg Q5MP PRN IV PAIN Last administered on 15:50; Start 05/22/17 at 16:30; Stop 05/22/17 at 17:30; Status DC Hydromorphone HCl (Dilaudid) 0.5 mg Q30M PRN IV MODERATE PAIN (PS 5-7) Last administered on 05/20/17 15:18; Start 05/20/17 at 10:00; Stop 05/20/17 at 15:18 ; Status DC Insulin Human Lispro (HumaLOG INSULIN) SEE PROTOCOL TABLE Q6H SC Last administered on 05/23/17 12:48; Start 05/20/17 at 18:00; Stop 05/23/17 at 17:12 ; Status DC Insulin Human Lispro (HumaLOG INSULIN) See Protocol Table AC SC Last administered on 05/25/17 09:05; Start 05/23/17 at 17:30; Stop 06/22/17 at 17: 29 Insulin Human Lispro (HumaLOG INSULIN) See Protocol Table QHS SC ; Start at 21:00; Stop 06/22/17 at 20:59 Ketorolac Tromethamine (ToRADol) 30 mg Q6HP PRN IV MILD/MODERATE PAIN (PS 1-7) ; Start 05/20/17 at 15:00; Stop 05/25/17 at 14:59 Lactated Ringer's 1,000 ml @ 125 mls/hr Q8H IV ; Start 05/20/17 at 15:00; Stop 05/20/17 at 17:34; Status DC Magnesium Hydroxide (Milk Of Magnesia) 30 ml DAILYPRN PRN PO CONSTIPATION Last administered on 05/24/17 21:33; Start 05/24/17 at 09:00; Stop 06/23/17 at 08: 59 Metoclopramide HCl (REGLAN INJection) 10 mg Q6HP PRN IV NAUSEA OR VOMITING Last administered on 05/23/17 04:52; Start 05/20/17 at 15:00; Stop 06/19/17 at 14:59 Morphine Sulfate (Morphine Sulfate In 0.9%Nacl Iv Bag) Concentration 1 mg/ml ASDIRECTED PRN IV SEE LABEL COMMENTS Last administered on 05/22/17 19:33; Start 05/20/17 at 15:00; Stop 05/27/17 at 14:59 Multivitamins (Theragram-M) 1 tab DAILY PO Last administered on 05/25/17 09:05 ; Start 05/21/17 at 09:00; Stop 06/20/17 at 08:59 Nalbuphine HCl (Nubain) 2.5 mg Q6HP PRN IV PRURITIS; Start 05/20/17 at 15:00; Stop 05/27/17 at 14:59 Naloxone HCl (Narcan) 0.1 mg Q5MP PRN IV SEE LABEL COMMENTS; Start 05/20/17 at 15:00; Stop 06/19/17 at 14:59 Non-Formulary Medication (Epidural/YARD OPERATOR [place]) USE THIS ENTRY TO VEND ... Q1M PRN XX SEE LABEL COMMENTS; Start 05/20/17 at 15:00; Stop 06/19/17 at 14:59 Ondansetron HCl (ZOFRAN INJection) 4 mg Q6HP PRN IV NAUSEA; Start 05/20/17 at 15:00; Stop 06/19/17 at 14:59; Status Cancel Ondansetron HCl (ZOFRAN INJection) 4 mg Q6HP PRN IV NAUSEA OR VOMITING Last administered on 05/25/17 04:00; Start 05/20/17 at 15:00; Stop 06/19/17 at 14: 59; Status Future hold Pantoprazole Sodium (Protonix) 40 mg BID IV Last administered on 05/25/17 09: 05; Start 05/20/17 at 21:00; Stop 06/19/17 at 20:59 Piperacillin Sod/ Tazobactam Sod 3.375 gm/Dextrose 50 ml @ 50 mls/hr Q6H IV Last administered on 05/22/17 06:04; Start 05/20/17 at 18:00; Stop 05/22/17 at 12:11; Status DC Piperacillin Sod/ Tazobactam Sod 3.375 gm/Dextrose 50 ml @ 50 mls/hr Q6H IV Last administered on 05/25/17 05:11; Start 05/22/17 at 12:00; Stop 05/27/17 at 17:59 Polyethylene Glycol (Miralax) 1 pkt DAILY PO Last administered on 05/25/17 09: 06; Start 05/24/17 at 09:00; Stop 06/23/17 at 08:59 Promethazine HCl (PHENERGAN INJection) 12.5 mg Q6HP PRN IV NAUSEA; Start at 15:00; Stop 06/19/17 at 14:59 Simvastatin (Zocor) 20 mg QHS PO Last administered on 05/24/17 21:34; Start at 21:00; Stop 06/19/17 at 20:59 Sodium Chloride 1,000 ml @ 15 mls/hr Q24H IV ; Start 05/20/17 at 14:56; Stop at 17:34; Status DC Sodium Chloride 1,000 ml @ 125 mls/hr Q8H IV Last administered on 05/23/17 10 :58; Start 05/20/17 at 17:00; Stop 05/23/17 at 17:12; Status DC Sucralfate (Carafate) 1 gm ACHS PO Last administered on 05/25/17 09:05; Start 05/20/17 at 17:30; Stop 06/19/17 at 17:29 Vitamin D (Vitamin D) 2,000 units BID PO Last administered on 05/25/17 09:06; Start 05/20/17 at 21:00; Stop 06/19/17 at 20:59 Allergies Coded Allergies: Aspartame (Verified Allergy, Unknown, dizziness, 05/20/17) Lidocaine (Verified Allergy, Unknown, pain from lidocaine patch, 9/26/17) Objective Physical Examination Examination GENERAL APPEARANCE:Moderately uncomfortable. SKIN: Warm and moist. HEENT: Normocephalic, atraumatic. [place] palpebral conjunctiva, anicteric sclerae. Lips and mucosa appear moist. NECK: Supple, no thyromegaly. No obvious jugular venous distention. LUNGS: Clear to auscultation bilaterally. No wheezing appreciated. HEART: No chest wall abnormalities. Regular rate and rhythm with no murmurs appreciated. ABDOMEN: Abdomen is round, soft, minimally distended, . tender over right upper quadrant area, percutaneous cholecystostomy tube in place, minimal brownish bilious drainage in bag. EXTREMITIES: Extremities have no deformities. No edema identified. Vital Signs Vital Signs Date Time Temp Pulse Resp B/P (MAP) Pulse Ox O2 Delivery O2 Flow Rate FiO2 05/25/17 08:15 98 200/104 (136) 05/25/17 08:00 16 97 Nasal Cannula 2.0 05/25/17 06:00 98.2 I&Os I&O- Last 24 Hours up to 6 AM 05/26/17 06:00 Output Total 200 ml Balance -200 ml Laboratory Data Labs 24H Laboratory Tests 2 05/24/17 11:20: Bedside Glucose (Misc Panel) 160H 05/24/17 16:26: Bedside Glucose (Misc Panel) 152H 05/24/17 20:33: Bedside Glucose (Misc Panel) 178H 05/25/17 05:23: Anion Gap 7L, Glomerular Filtration Rate > 60.0, Blood Urea Nitrogen 15, Creatinine 0.82, Sodium Level 139, Potassium Level 3.6, Chloride Level 105, Carbon Dioxide Level 27, Calcium Level 8.2L, Aspartate Amino Transf (AST/SGOT) 9L, Alanine Aminotransferase (ALT/SGPT) 12, Alkaline Phosphatase 101, Total Bilirubin 0.8, Total Protein 6.3L, Albumin 2.1L, Albumin/Globulin Ratio 0.50L, Lipase 38L CBC/BMP Laboratory Tests 05/25/17 05:23 Red Blood Count 3.57 L, Mean Corpuscular Volume 95.0, Mean Corpuscular Hemoglobin 29.4, Mean Corpuscular Hemoglobin Concent 31.0 L, Red Cell Distribution Width 12.8, Calcium Level 8.2 L, Aspartate Amino Transf (AST/SGOT) 9 L, Alanine Aminotransferase (ALT/SGPT) 12, Alkaline Phosphatase 101, Total Bilirubin 0.8, Total Protein 6.3 L, Albumin 2.1 L Microbiology Microbiology 05/22/17 Anaerobic Culture - Final, Complete 05/22/17 Gram Stain - Final, Complete 05/22/17 Abscess Culture - Final, Complete Citrobacter Freundii Impression Acute Cholecystitis s/p percutaneous cholecystostomy placement Her leukocytosis is improving but still complains of significant pain and discomfort. Drain is not putting out much. will ask the nurses to flush the drain, maybe clogged from sludge. Continue antibiotics. will advance diet. Plan / VTE VTE Prophylaxis Ordered?: Yes CESAR BOOTHE MD May 25, 2017 09:48
[2017-05-25 10:00] VITALS: BP 201/109
--- NOTE | 2017-05-25 12:08 | IPNPDOC ---
Date Seen The patient was seen on 05/25/17. Progress Note SUBJECTIVE: Patient is a 71-year-old female started complaining of quite a bit of abdominal pain and discomfort. She denies chest pain, nausea, vomiting, and surgery is planning on trying to advance her diet. She continues with a abdominal drain placed for possible intra-abdominal abscess. No fevers overnight OBJECTIVE PHYSICAL EXAMINATION: VITAL SIGNS: Please see below. GENERAL: [No acute distress, alert and oriented 3] HEENT: [PERRLA. Throat clear. Neck supple, no adenopathy] CARDIOVASCULAR: [Regular rate and rhythm]. RESPIRATORY: [Clear to auscultation bilaterally]. ABDOMINAL: [Vaguely tender in the upper abdomen positive bowel sounds. No rebound.] EXTREMITIES: [No edema, calf tenderness] NEUROLOGICAL: [Cranial nerves II through XII grossly intact] PSYCHOLOGICAL: [Negative] LABORATORY DATA: Please see below. MICROBIOLOGY: Please see below. DVT prophylaxis ordered?: [Yes] ASSESSMENT AND PLAN: This is a -year-old [RACE] [GENDER] with . PROBLEMS: 1. Abdominal pain with confirmed acute cholecystitis on HIDA scan: Currently on IV Zosyn and defer any surgical intervention to surgery. Currently with gallbladder drain is in place. Cultures are pending. Continue with IV Zosyn. 2. Leukocytosis: Likely secondary to acute cholecystitis. Still slightly elevated today. Continue antibiotics and defer to surgery for any further intervention. 3. Diabetes2: Fingersticks with sliding scale adjustment for coverage. 4. Dyslipidemia: continue Statin 5. DVT prophylaxis: Heparin SQ DISPOSITION: Continue iv Zosyn, Protonix and carafate. Defer to surgery regarding her cholecystitis. Likely be hospitalized another few more days. VS, [facility] Vital Signs/I&O Vital Signs Date Time Temp Pulse Resp B/P (MAP) Pulse Ox O2 Delivery O2 Flow Rate FiO2 05/25/17 10:48 206/100 05/25/17 10:00 98.2 105 18 98 Nasal Cannula 2.0 I&O- Last 24 Hours up to 6 AM 05/26/17 06:00 Intake Total 240 ml Output Total 400 ml Balance -160 ml Laboratory Data 24H LABS Laboratory Tests 2 05/24/17 16:26: Bedside Glucose (Misc Panel) 152H 05/24/17 20:33: Bedside Glucose (Misc Panel) 178H 05/25/17 05:23: Anion Gap 7L, Glomerular Filtration Rate > 60.0, Blood Urea Nitrogen 15, Creatinine 0.82, Sodium Level 139, Potassium Level 3.6, Chloride Level 105, Carbon Dioxide Level 27, Calcium Level 8.2L, Aspartate Amino Transf (AST/SGOT) 9L, Alanine Aminotransferase (ALT/SGPT) 12, Alkaline Phosphatase 101, Total Bilirubin 0.8, Total Protein 6.3L, Albumin 2.1L, Albumin/Globulin Ratio 0.50L, Lipase 38L CBC/BMP Laboratory Tests 05/25/17 05:23 Red Blood Count 3.57 L, Mean Corpuscular Volume 95.0, Mean Corpuscular Hemoglobin 29.4, Mean Corpuscular Hemoglobin Concent 31.0 L, Red Cell Distribution Width 12.8, Calcium Level 8.2 L, Aspartate Amino Transf (AST/SGOT) 9 L, Alanine Aminotransferase (ALT/SGPT) 12, Alkaline Phosphatase 101, Total Bilirubin 0.8, Total Protein 6.3 L, Albumin 2.1 L Microbiology Microbiology 05/22/17 Anaerobic Culture - Final, Complete 05/22/17 Gram Stain - Final, Complete 05/22/17 Abscess Culture - Final, Complete Citrobacter Freundii TEA HAMILTON DO May 25, 2017 12:08
[2017-05-25] MEDS ORDERED: NORCO, ANEXSIA 5/325MG TABLET (HYDROcodone/ACETAMINOPHEN) PO PRN (14:15)
[2017-05-25 15:30] VITALS: BP 173/103
[2017-05-25] MEDS: NORCO, ANEXSIA 5/325MG TABLET (HYDROcodone/ACETAMINOPHEN) PO PRN (15:36)
[2017-05-25 19:00] VITALS: BP 164/98
[2017-05-25] MEDS: DULoxetine 30 MG CAP (CYMBALTA) PO SCH (21:31)
[2017-05-25] MEDS: BACTRIM 160MG/800MG DS TAB PO SCH (21:31)
[2017-05-25] MEDS: PANTOPRAZOLE 40MG TAB (PROTONIX) PO SCH (21:32)
[2017-05-25] MEDS: SIMVASTATIN 20 MG TAB PO SCH (21:32)
[2017-05-25 22:00] VITALS: BP_SYST 112; BP_SYST 162; BP_DIAS 75; BP_DIAS 95
[2017-05-26 02:51] VITALS: BP 170/98
[2017-05-26 06:00] VITALS: BP 164/92
[2017-05-26] MEDS: HEPARIN SOD (PORCINE) 5000 UNITS/ML VIAL SQ SCH ×3 (06:24→21:40)
[2017-05-26 06:36] LABS: MEAN CORPUSCULAR HEMOGLOBIN 30.4 pg (27.0-33.0); MEAN CORPUSCULAR HGB CONC 32.1 g/dl (32.0-36.5); MEAN CORPUSCULAR VOLUME 94.6 fl (80.0-96.0); RED CELL DISTRIBUTION WIDTH 12.7 % (11.5-14.5); WHITE BLOOD COUNT 13.2 10^3/uL (4.0-10.0)
[2017-05-26 07:11] LABS: ALBUMIN/GLOBULIN RATIO 0.43 (1.00-1.93); ALKALINE PHOSPHATASE 99 U/L (45-117); ALT/SGPT 12 U/L (12-78); ANION GAP 6 MEQ/L (8-16); AST/SGOT 15 U/L (15-37); BILIRUBIN,TOTAL 0.6 MG/DL (0.2-1.0); BLOOD UREA NITROGEN 12 MG/DL (7-18); CALCIUM LEVEL 8.4 MG/DL (8.8-10.2); CARBON DIOXIDE LEVEL 29 MEQ/L (21-32); CHLORIDE LEVEL 103 MEQ/L (98-107); CREATININE FOR GFR 0.79 MG/DL (0.55-1.02); GLOMERULAR FILTRATION RATE > 60.0 (>39); GLUCOSE, FASTING 221 MG/DL (83-110); POTASSIUM SERUM 3.5 MEQ/L (3.5-5.1); SODIUM LEVEL 138 MEQ/L (136-145); TOTAL PROTEIN 6.6 GM/DL (6.4-8.2)
[2017-05-26] MEDS: PANTOPRAZOLE 40MG TAB (PROTONIX) PO SCH ×2 (08:38→21:40)
[2017-05-26] MEDS: BACTRIM 160MG/800MG DS TAB PO SCH ×2 (08:39→21:40)
[2017-05-26] MEDS: SUCRALFATE 1 GM TAB PO SCH ×4 (08:39→21:39)
[2017-05-26] MEDS: NORCO, ANEXSIA 5/325MG TABLET (HYDROcodone/ACETAMINOPHEN) PO PRN ×2 (08:40→12:55)
[2017-05-26] MEDS: amLODIPine 10 MG TAB PO SCH (08:45)
[2017-05-26] MEDS: MIRALAX *UNIT DOSE* 17GM PACKET PO SCH (08:52)
[2017-05-26] MEDS: DOCUSATE SODIUM 100 MG CAP PO SCH ×2 (08:52→19:42)
[2017-05-26] MEDS: MULTIVITAMINS/MINERALS THERAP 1 TAB PO SCH (08:52)
[2017-05-26] MEDS: VITAMIN D 1,000 INTERNATIONAL UNITS TABLET PO SCH ×2 (08:53→19:42)
[2017-05-26] MEDS: HumaLOG INSULIN (NovoLOG) PER UNIT SC SCH ×4 (08:54→21:00)
[2017-05-26] MEDS: ONDANSETRON 4 MG TAB (S0181) PO PRN ×2 (10:22→19:41)
--- NOTE | 2017-05-26 11:49 | IPNPDOC ---
Date Seen The patient was seen on 05/26/17. Progress Note SUBJECTIVE: 71-year-old female with past medical history of diabetes mellitus, dyslipidemia, on a kidney disease stage III, arthritis, and chronic back pain due to spinal stenosis presents to the ER with a chief complaint of mid epigastric pain for a 2 to 3 week duration. Last night the pain became 10 out of 10 in intensity, sharp, and intermittent with associated nausea. She denies any associated fevers, chills, chest pain, shortness of breath, relation to food intake, recent foreign food ingestion, sick contacts, or any vomiting/ diarrhea. A CT scan was performed the ED. The CT scan was read as moderately distended gallbladder containing gallstones. There also appeared to be gallbladder wall edema, with a slight intrahepatic biliary dilation as well as dilation of the common bile duct 10 mm. These findings were suspicious for cholecystitis. Surgery was counseled as a result Patient had ultrasound-guided abscess drainage of her gallbladder, with anesthesia. Patient tolerated the procedure just fine. This morning patient appears to be slightly confused, and had difficulty finding words. She keep asking for more pain medication despite being on a CREDIT REPORTER pump. This morning patient reports she is feeling okay. She is telling by mouth daily no issues. Patient still has a drain in her right abdomen . PHYSICAL EXAMINATION: VITAL SIGNS: Please see below. GENERAL: Slightly confused adult female, difficulty finding her words CARDIOVASCULAR: S1 and S2 present, no murmurs, no rubs, no gallops RESPIRATORY: Lungs are clear to auscultate. ABDOMINAL: Nontender to palpate in her abdomen. Patient has visible drainage on her right abdomen, there is no sign of infection with the drain his incision site NEUROLOGICAL: No numbness or tingling PSYCHOLOGICAL: Patient appears slightly confused, she had difficulty finding words and could not stay on topic LABORATORY DATA: Please see below. MICROBIOLOGY: Please see below. IMAGING: CT abdomen impression was: Moderately distended gallbladder contains gallstones. There appears to be gallbladder wall edema. There is slight intrahepatic biliary dilatation as well as dilatation of the common bile duct up to 10 mm. Findings are suspicious for cholecystitis. Gallbladder ultrasound on 05/20/17: Moderately distended gallbladder containing sludge and stones with gallbladder wall thickening and a tiny amount of pericholecystic fluid. Common bile duct dilated up to 8 mm. The findings are compatible with cholecystitis. HIDA scan performed on 05/21/2017: Showed findings consistent with acute cholecystitis ASSESSMENT AND PLAN: 71-year-old female with past medical history with abdominal pain, CT was suspicious for cholecystitis. On 05/14/2017, patient had CT-guided abscess drainage of her gallbladder. Cultures grew citrobacter freundii. Medicine is on board and is managing with proper antibiotics. Patient is on low fat diet and is tolerating that well. Patient's white count today is 13.2 and increase from 11.6 yesterday. We will continue to monitor patient and reassess her tomorrow. VS, I&O, 24H, Fishbone Vital Signs/I&O Vital Signs Date Time Temp Pulse Resp B/P (MAP) Pulse Ox O2 Delivery O2 Flow Rate FiO2 05/26/17 09:10 16 Room Air 05/26/17 08:45 84 167/106 05/26/17 06:00 98.9 91 05/25/17 22:00 2.0 I&O- Last 24 Hours up to 6 AM 05/27/17 06:00 Intake Total 120 ml Output Total 0 ml Balance 120 ml Laboratory Data 24H LABS Laboratory Tests 2 05/25/17 11:52: Bedside Glucose (Misc Panel) 153H 05/25/17 16:11: Bedside Glucose (Misc Panel) 148H 05/26/17 06:24: Anion Gap 6L, Glomerular Filtration Rate > 60.0, Blood Urea Nitrogen 12, Creatinine 0.79, Sodium Level 138, Potassium Level 3.5, Chloride Level 103, Carbon Dioxide Level 29, Calcium Level 8.4L, Aspartate Amino Transf (AST/SGOT) 15, Alanine Aminotransferase (ALT/SGPT) 12, Alkaline Phosphatase 99, Total Bilirubin 0.6, Total Protein 6.6, Albumin 2.0L, Albumin/Globulin Ratio 0.43L, Lipase 46L CBC/BMP Laboratory Tests 05/26/17 06:24 Red Blood Count 3.52 L, Mean Corpuscular Volume 94.6, Mean Corpuscular Hemoglobin 30.4, Mean Corpuscular Hemoglobin Concent 32.1, Red Cell Distribution Width 12.7, Calcium Level 8.4 L, Aspartate Amino Transf (AST/SGOT) 15, Alanine Aminotransferase (ALT/SGPT) 12, Alkaline Phosphatase 99, Total Bilirubin 0.6, Total Protein 6.6, Albumin 2.0 L Microbiology Microbiology 05/22/17 Anaerobic Culture - Final, Complete 05/22/17 Gram Stain - Final, Complete 05/22/17 Abscess Culture - Final, Complete Citrobacter Freundii GME ATTESTATION GME ATTESTATION My preceptor for this patient encounter was physically present in the building during the encounter and was fully available. As needed, all aspects of the patient interview, examination, medical decision making process, and medical care plan development were reviewed and approved by the preceptor. Preceptor is aware and concurs with the plan as stated in the body of this note and will attest to such by his/her cosignature. JOSELIN HOLT DO May 26, 2017 11:49
[2017-05-26 14:00] VITALS: BP 164/92
--- NOTE | 2017-05-26 15:14 | IPN ---
DATE: 05/26/2017 Lorena is seen while rounding for the hospitalist. She feels much better than yesterday. Apparently is still having some mild visual hallucinations, probably related to her pain medications. She was on IV antibiotics. Surgery is following her as well. She has been taken off her IV antibiotic and is now on oral Bactrim from surgery. PHYSICAL EXAMINATION: Blood pressure 167/106, pulse 54, respiratory rate 18, 96% oxygen saturation. GENERAL APPEARANCE: Resting comfortably, alert, conversant. No jugular venous distention (JVD). LUNGS: Clear. HEART: Regular rate, rhythm. ABDOMEN: Soft, nontender. No peripheral edema. LABORATORY DATA: White count is up to 13.2, hemoglobin is 10.7. Electrolytes look unremarkable. IMPRESSION: 1. Acute cholecystitis, being followed by surgery. She grew out Citrobacter on her cultures. She was on oral antibiotic for this. A biliary drain was placed. 2. Visual hallucinations, probably from her analgesics. They are mild and seem to be improving. 3. Diabetes. Finger sticks with coverage to be continued.
[2017-05-26] MEDS: SIMVASTATIN 20 MG TAB PO SCH (21:40)
[2017-05-26] MEDS: DULoxetine 30 MG CAP (CYMBALTA) PO SCH (21:40)
[2017-05-26 22:00] VITALS: BP 145/66
[2017-05-27] MEDS: NORCO, ANEXSIA 5/325MG TABLET (HYDROcodone/ACETAMINOPHEN) PO PRN ×4 (00:55→20:52)
[2017-05-27] MEDS: ONDANSETRON 4 MG TAB (S0181) PO PRN ×2 (00:55→10:45)
[2017-05-27] MEDS: HEPARIN SOD (PORCINE) 5000 UNITS/ML VIAL SQ SCH ×3 (05:47→21:33)
[2017-05-27 06:00] VITALS: BP 152/72
[2017-05-27 06:18] LABS: MEAN CORPUSCULAR HEMOGLOBIN 30.1 pg (27.0-33.0); MEAN CORPUSCULAR HGB CONC 32.1 g/dl (32.0-36.5); MEAN CORPUSCULAR VOLUME 93.5 fl (80.0-96.0); RED CELL DISTRIBUTION WIDTH 12.8 % (11.5-14.5); WHITE BLOOD COUNT 15.1 10^3/uL (4.0-10.0)
[2017-05-27 06:38] LABS: ALBUMIN 2.1 GM/DL (3.2-5.2); ALBUMIN/GLOBULIN RATIO 0.47 (1.00-1.93); ALKALINE PHOSPHATASE 96 U/L (45-117); ALT/SGPT 11 U/L (12-78); ANION GAP 6 MEQ/L (8-16); AST/SGOT 9 U/L (15-37); BILIRUBIN,TOTAL 0.4 MG/DL (0.2-1.0); BLOOD UREA NITROGEN 12 MG/DL (7-18); CALCIUM LEVEL 8.4 MG/DL (8.8-10.2); CARBON DIOXIDE LEVEL 31 MEQ/L (21-32); CHLORIDE LEVEL 103 MEQ/L (98-107); GLOMERULAR FILTRATION RATE > 60.0 (>39); GLUCOSE, FASTING 125 MG/DL (83-110); POTASSIUM SERUM 3.5 MEQ/L (3.5-5.1); SODIUM LEVEL 140 MEQ/L (136-145); TOTAL PROTEIN 6.6 GM/DL (6.4-8.2)
[2017-05-27] MEDS: amLODIPine 10 MG TAB PO SCH (08:11)
[2017-05-27] MEDS: SUCRALFATE 1 GM TAB PO SCH ×4 (08:11→20:52)
[2017-05-27] MEDS: DOCUSATE SODIUM 100 MG CAP PO SCH ×2 (08:11→20:52)
[2017-05-27] MEDS: VITAMIN D 1,000 INTERNATIONAL UNITS TABLET PO SCH ×2 (08:12→20:52)
[2017-05-27] MEDS: HumaLOG INSULIN (NovoLOG) PER UNIT SC SCH ×4 (08:12→21:00)
[2017-05-27] MEDS: BACTRIM 160MG/800MG DS TAB PO SCH ×2 (08:12→20:51)
[2017-05-27] MEDS: MULTIVITAMINS/MINERALS THERAP 1 TAB PO SCH (08:12)
[2017-05-27] MEDS: PANTOPRAZOLE 40MG TAB (PROTONIX) PO SCH ×2 (08:12→20:51)
[2017-05-27] MEDS: MIRALAX *UNIT DOSE* 17GM PACKET PO SCH (08:13)
[2017-05-27] MEDS: METOCLOPRAMIDE INJ 10MG/2ML VIAL (J2765) IV PRN (09:23)
--- NOTE | 2017-05-27 09:53 | IPNPDOC ---
Date Seen The patient was seen on 05/27/17. Progress Note SUBJECTIVE: 71-year-old female with past medical history of diabetes mellitus, dyslipidemia, on a kidney disease stage III, arthritis, and chronic back pain due to spinal stenosis presents to the ER with a chief complaint of mid epigastric pain for a 2 to 3 week duration. Last night the pain became 10 out of 10 in intensity, sharp, and intermittent with associated nausea. She denies any associated fevers, chills, chest pain, shortness of breath, relation to food intake, recent foreign food ingestion, sick contacts, or any vomiting/ diarrhea. A CT scan was performed the ED. The CT scan was read as moderately distended gallbladder containing gallstones. There also appeared to be gallbladder wall edema, with a slight intrahepatic biliary dilation as well as dilation of the common bile duct 10 mm. These findings were suspicious for cholecystitis. Surgery was counseled as a result Patient had ultrasound-guided abscess drainage of her gallbladder, with anesthesia. Patient tolerated the procedure just fine. This morning pt is awake and alert. She is still having pain in her generalized abdomen. She is still tolerating her clear liquid diet without any difficulties. PHYSICAL EXAMINATION: VITAL SIGNS: Please see below. GENERAL: Slightly confused adult female, difficulty finding her words CARDIOVASCULAR: S1 and S2 present, no murmurs, no rubs, no gallops RESPIRATORY: Lungs are clear to auscultate. ABDOMINAL: tender to palpate in her abdomen. Patient has visible drainage on her right abdomen, there is no sign of infection with the drain his incision site. The color of her abdominal drainage is greenish bile. NEUROLOGICAL: No numbness or tingling PSYCHOLOGICAL: Patient appears slightly confused, she had difficulty finding words and could not stay on topic LABORATORY DATA: Please see below. MICROBIOLOGY: Please see below. IMAGING: CT abdomen impression was: Moderately distended gallbladder contains gallstones. There appears to be gallbladder wall edema. There is slight intrahepatic biliary dilatation as well as dilatation of the common bile duct up to 10 mm. Findings are suspicious for cholecystitis. Gallbladder ultrasound on 05/20/17: Moderately distended gallbladder containing sludge and stones with gallbladder wall thickening and a tiny amount of pericholecystic fluid. Common bile duct dilated up to 8 mm. The findings are compatible with cholecystitis. HIDA scan performed on 05/21/2017: Showed findings consistent with acute cholecystitis ASSESSMENT AND PLAN: 71-year-old female with past medical history with abdominal pain, CT was suspicious for cholecystitis. On 05/14/2017, patient had CT-guided abscess drainage of her gallbladder. Cultures grew citrobacter freundii. Medicine is on board and is managing with proper antibiotics. Today patient WBC jumped up to 15.1 from 13.2 yesterday. This is concerning for an acute infection. A culture of her current drainage has been ordered. Also an abdominal ultrasound of her drainage tube has been ordered to ensure the position of the tube.We will continue to monitor patient and reassess her tomorrow. VS, I&O, 24H, Fishbone Vital Signs/I&O Vital Signs Date Time Temp Pulse Resp B/P (MAP) Pulse Ox O2 Delivery O2 Flow Rate FiO2 05/27/17 08:11 92 152/72 05/27/17 06:00 98.7 20 93 05/26/17 21:30 Room Air 05/25/17 22:00 2.0 Laboratory Data 24H LABS Laboratory Tests 2 05/26/17 11:59: Bedside Glucose (Misc Panel) 151H 05/26/17 16:56: Bedside Glucose (Misc Panel) 111H 05/26/17 20:36: Bedside Glucose (Misc Panel) 122H 05/27/17 05:41: Anion Gap 6L, Glomerular Filtration Rate > 60.0, Blood Urea Nitrogen 12, Creatinine 0.80, Sodium Level 140, Potassium Level 3.5, Chloride Level 103, Carbon Dioxide Level 31, Calcium Level 8.4L, Aspartate Amino Transf (AST/SGOT) 9L, Alanine Aminotransferase (ALT/SGPT) 11L, Alkaline Phosphatase 96, Total Bilirubin 0.4, Total Protein 6.6, Albumin 2.1L, Albumin/Globulin Ratio 0.47L, Lipase 50L CBC/BMP Laboratory Tests 05/27/17 05:41 Red Blood Count 3.56 L, Mean Corpuscular Volume 93.5, Mean Corpuscular Hemoglobin 30.1, Mean Corpuscular Hemoglobin Concent 32.1, Red Cell Distribution Width 12.8, Calcium Level 8.4 L, Aspartate Amino Transf (AST/SGOT) 9 L, Alanine Aminotransferase (ALT/SGPT) 11 L, Alkaline Phosphatase 96, Total Bilirubin 0.4, Total Protein 6.6, Albumin 2.1 L Microbiology Microbiology 05/22/17 Anaerobic Culture - Final, Complete 05/22/17 Gram Stain - Final, Complete 05/22/17 Abscess Culture - Final, Complete Citrobacter Freundii GME ATTESTATION GME ATTESTATION My preceptor for this patient encounter was physically present in the building during the encounter and was fully available. As needed, all aspects of the patient interview, examination, medical decision making process, and medical care plan development were reviewed and approved by the preceptor. Preceptor is aware and concurs with the plan as stated in the body of this note and will attest to such by his/her cosignature. JOSELIN HOLT DO May 27, 2017 09:53
[2017-05-27 11:00] VITALS: BP 167/80
--- NOTE | 2017-05-27 11:00 | REP ---
RIGHT UPPER QUADRANT SONOGRAPHY: HISTORY: Patient status post percutaneous cholecystostomy tube drainage. Question drain placement position. COMPARISON: CT study, May 20, 2017. Comparison ultrasound imaging. May 22, 2017. FINDINGS: Percutaneous drainage catheter is seen coursing through the overlying liver into the collapsed gallbladder. Echogenic material consistent with gallstones is seen adjacent to the tube in the gallbladder lumen which is otherwise empty. No ascites. No hematoma seen. IMPRESSION: The drainage catheter is seen coursing through the liver into the decompressed gallbladder. Signed by Fred Nichols MD 05/27/2017 03:29 P
--- NOTE | 2017-05-27 13:07 | IPNPDOC ---
Subjective Date Seen The patient was seen on 05/27/17. Subjective Chief Complaint/HPI Patient seen and examined at the bedside. States that she still has some right upper quadrant pain this morning. However, notes that this has significantly improved over the last few days. Denies any other acute complaints at this time. Objective Physical Examination General Exam: Positive: Alert, Cooperative, No Acute Distress ENT Exam: Positive: Atraumatic, Mucous membr. moist/pink Neck Exam: Negative: JVD Chest Exam: Positive: Clear to auscultation, Normal air movement Heart Exam: Positive: Rate Normal, Normal S1, Normal S2 Abdomen Exam: Positive: Soft (+GB Drain noted. Mild tenderness to deep palpation in the RUQ area. No rebound tenderness, guarding, or rigidity noted) Extremity Exam: Negative: Tenderness, Swelling Psych Exam: Positive: Oriented x 3 Assessment /Plan Plan/VTE VTE Prophylaxis Ordered?: Yes Plan Acute Cholecystitis s/p Cholecystostomy placement Fluid Culture positive for Citrobacter Freundii IV abx transitioned to Bactrim The patient has remained afebrile here, despite WBC hovering around 13-15K over last 2 days Drain has had minimal output-->U/S of the Abd ordered this AM to assess for drain placement Will follow up with surgical recommendations Leukocytosis 2/2 Above WBC 15K this AM Patient has remained afebrile We will cont to monitor CBC Diabetes Mellitus ISS as ordered Dyslipidemia Cont statin HTN Cont Norvasc DVT prophylaxis Heparin SC Dispo--as per surgery VS, I&O, 24H, Fishbone Vital Signs/I&O Vital Signs Date Time Temp Pulse Resp B/P (MAP) Pulse Ox O2 Delivery O2 Flow Rate FiO2 05/27/17 12:36 18 05/27/17 11:00 98.7 94 167/80 (109) 94 Room Air 05/25/17 22:00 2.0 I&O- Last 24 Hours up to 6 AM 05/28/17 06:00 Intake Total 40 ml Output Total 300 ml Balance -260 ml Laboratory Data 24H LABS Laboratory Tests 2 05/26/17 16:56: Bedside Glucose (Misc Panel) 111H 05/26/17 20:36: Bedside Glucose (Misc Panel) 122H 05/27/17 05:41: Anion Gap 6L, Glomerular Filtration Rate > 60.0, Blood Urea Nitrogen 12, Creatinine 0.80, Sodium Level 140, Potassium Level 3.5, Chloride Level 103, Carbon Dioxide Level 31, Calcium Level 8.4L, Aspartate Amino Transf (AST/SGOT) 9L, Alanine Aminotransferase (ALT/SGPT) 11L, Alkaline Phosphatase 96, Total Bilirubin 0.4, Total Protein 6.6, Albumin 2.1L, Albumin/Globulin Ratio 0.47L, Lipase 50L CBC/BMP Laboratory Tests 05/27/17 05:41 Red Blood Count 3.56 L, Mean Corpuscular Volume 93.5, Mean Corpuscular Hemoglobin 30.1, Mean Corpuscular Hemoglobin Concent 32.1, Red Cell Distribution Width 12.8, Calcium Level 8.4 L, Aspartate Amino Transf (AST/SGOT) 9 L, Alanine Aminotransferase (ALT/SGPT) 11 L, Alkaline Phosphatase 96, Total Bilirubin 0.4, Total Protein 6.6, Albumin 2.1 L Microbiology Microbiology 05/22/17 Anaerobic Culture - Final, Complete 05/27/17 Gram Stain, Received Pending 05/27/17 Abscess Culture, Received Pending 05/22/17 Gram Stain - Final, Complete 05/22/17 Abscess Culture - Final, Complete Citrobacter Freundii PROSPER KIM MD May 27, 2017 13:07
[2017-05-27 14:00] VITALS: BP 162/80
[2017-05-27] MEDS: DULoxetine 30 MG CAP (CYMBALTA) PO SCH (20:51)
[2017-05-27] MEDS: SIMVASTATIN 20 MG TAB PO SCH (20:51)
[2017-05-27 22:00] VITALS: BP 154/62
[2017-05-28] MEDS: NORCO, ANEXSIA 5/325MG TABLET (HYDROcodone/ACETAMINOPHEN) PO PRN ×4 (02:26→18:12)
[2017-05-28] MEDS: ONDANSETRON 4 MG TAB (S0181) PO PRN ×3 (02:41→18:12)
[2017-05-28] MEDS: HEPARIN SOD (PORCINE) 5000 UNITS/ML VIAL SQ SCH ×3 (05:20→21:27)
[2017-05-28 06:00] VITALS: BP 175/88
[2017-05-28 08:04] LABS: MEAN CORPUSCULAR HGB CONC 32.1 g/dl (32.0-36.5); MEAN CORPUSCULAR VOLUME 93.3 fl (80.0-96.0); RED CELL DISTRIBUTION WIDTH 13.1 % (11.5-14.5)
[2017-05-28 08:30] LABS: ANION GAP 7 MEQ/L (8-16); BLOOD UREA NITROGEN 13 MG/DL (7-18); CALCIUM LEVEL 8.4 MG/DL (8.8-10.2); CARBON DIOXIDE LEVEL 28 MEQ/L (21-32); CHLORIDE LEVEL 103 MEQ/L (98-107); CREATININE FOR GFR 0.85 MG/DL (0.55-1.02); GLOMERULAR FILTRATION RATE > 60.0 (>39); GLUCOSE, FASTING 123 MG/DL (83-110); POTASSIUM SERUM 3.6 MEQ/L (3.5-5.1); SODIUM LEVEL 138 MEQ/L (136-145)
[2017-05-28] MEDS: HumaLOG INSULIN (NovoLOG) PER UNIT SC SCH ×4 (08:55→21:00)
[2017-05-28] MEDS: PANTOPRAZOLE 40MG TAB (PROTONIX) PO SCH ×2 (08:56→21:28)
[2017-05-28] MEDS: BACTRIM 160MG/800MG DS TAB PO SCH ×2 (08:56→21:28)
[2017-05-28] MEDS: amLODIPine 10 MG TAB PO SCH (08:56)
[2017-05-28] MEDS: MULTIVITAMINS/MINERALS THERAP 1 TAB PO SCH (08:57)
[2017-05-28] MEDS: VITAMIN D 1,000 INTERNATIONAL UNITS TABLET PO SCH ×2 (08:57→21:00)
[2017-05-28] MEDS: MIRALAX *UNIT DOSE* 17GM PACKET PO SCH (08:57)
[2017-05-28] MEDS: DOCUSATE SODIUM 100 MG CAP PO SCH ×2 (08:58→21:00)
[2017-05-28] MEDS: SUCRALFATE 1 GM TAB PO SCH ×4 (08:58→21:29)
[2017-05-28 10:00] VITALS: BP 155/79
[2017-05-28] MEDS ORDERED: NS 1,000 ML IV SCH (12:15)
[2017-05-28] MEDS: MECLIZINE 25 MG TABLET PO PRN ×2 (13:00→21:31)
[2017-05-28 13:42] LABS: REASON FOR REVIEW COMPREHENSIVE REVIEW
--- NOTE | 2017-05-28 14:37 | IPNPDOC ---
Subjective Date Seen The patient was seen on 05/28/17. Subjective Chief Complaint/HPI Patient seen and examined at the bedside. States that her abdominal pain is slowly improving. Denies any acute overnight events. Objective Physical Examination General Exam: Positive: Alert, Cooperative, No Acute Distress ENT Exam: Positive: Atraumatic, Mucous membr. moist/pink Neck Exam: Negative: JVD Chest Exam: Positive: Clear to auscultation, Normal air movement Heart Exam: Positive: Rate Normal, Normal S1, Normal S2 Abdomen Exam: Positive: Soft (+GB Drain noted. Mild tenderness to deep palpation in the RUQ area. No rebound tenderness, guarding, or rigidity noted) Extremity Exam: Negative: Tenderness, Swelling Psych Exam: Positive: Oriented x 3 Assessment /Plan Plan/VTE VTE Prophylaxis Ordered?: Yes Plan Acute Cholecystitis s/p Cholecystostomy placement Fluid Culture positive for Citrobacter Freundii IV abx transitioned to Bactrim The patient has remained afebrile here, and clinically appears improved as well despite WBC increasing to 16K this AM We will order CRP levels, Peripheral Smear The patient also does not have any blood cultures ordered since admission, we will order this as well Will follow up with surgical recommendations Leukocytosis 2/2 Above WBC 16K this AM--work up ordered as noted above Patient has remained afebrile We will cont to monitor CBC Diabetes Mellitus ISS as ordered Dyslipidemia Cont statin HTN Cont Norvasc DVT prophylaxis Heparin SC Dispo--as per surgery VS, I&O, 24H, Fishbone Vital Signs/I&O Vital Signs Date Time Temp Pulse Resp B/P (MAP) Pulse Ox O2 Delivery O2 Flow Rate FiO2 05/28/17 13:36 18 05/28/17 10:00 97.5 90 155/79 (104) 92 Room Air 05/25/17 22:00 2.0 I&O- Last 24 Hours up to 6 AM 05/29/17 06:00 Intake Total 50 ml Balance 50 ml Laboratory Data 24H LABS Laboratory Tests 2 05/27/17 16:40: Bedside Glucose (Misc Panel) 121H 05/27/17 21:12: Bedside Glucose (Misc Panel) 102 05/28/17 07:53: Anion Gap 7L, Glomerular Filtration Rate > 60.0, Blood Urea Nitrogen 13, Creatinine 0.85, Sodium Level 138, Potassium Level 3.6, Chloride Level 103, Carbon Dioxide Level 28, Calcium Level 8.4L, C-Reactive Protein, Quantitative 11.20H 05/28/17 11:34: Bedside Glucose (Misc Panel) 105 05/28/17 12:03: Differential Slide Review Report, Differential Pathologist's Review COMPREHENSIVE REVIEW, Peripheral Blood Smear Path Consult PERIPHERAL SMEAR CBC/BMP Laboratory Tests 05/28/17 07:53 Red Blood Count 3.60 L, Mean Corpuscular Volume 93.3, Mean Corpuscular Hemoglobin 30.0, Mean Corpuscular Hemoglobin Concent 32.1, Red Cell Distribution Width 13.1, Calcium Level 8.4 L Microbiology Microbiology 05/22/17 Anaerobic Culture - Final, Complete 05/27/17 Gram Stain - Final, Resulted 05/27/17 Abscess Culture, Resulted Pending 05/22/17 Gram Stain - Final, Complete 05/22/17 Abscess Culture - Final, Complete Citrobacter Freundii PROSPER KIM MD May 28, 2017 14:37
--- NOTE | 2017-05-28 15:43 | IPN ---
DATE: 05/28/2017 I spoke with the hospitalist earlier today concerning Mrs. Wetzel's elevated white count, and that at this point the gallbladder issues seem to be relatively stable. Her drainage from the site has been serous and not a significant amount. She is not having as much pain or tenderness in the area. She has had no fevers; however, her white count is staying elevated. He remarked that this might be an inflammatory process, not an infectious process. He was going to do some workup concerning this. On her physical exam, her abdomen is nondistended, nontender, except where the drain is stitched into place, but otherwise she really does not have the same peritoneal signs that she had previously when she was so sick with this acute cholecystitis. IMPRESSION AND PLAN: The patient's acute cholecystitis seems to be improving clinically; however, the elevated white count is still concerning at this time, and the etiology is undetermined. It seems less likely that it is infectious, and the concern from my standpoint is that when she presented, she presented with back pain and lower abdominal pain, and with a history of infectious problematic wound healing from a hip, there may be some other etiology that is ongoing for her. From my standpoint, once again, we can advance her diet and encourage oral intake at this time with a low-fat diet. She can be discharged from a surgical standpoint at any time, but with the elevated white count I have talked her and her , who are in agreement, to see how white count is tomorrow, and if the white count is decreasing, probable discharge to home. If it is increasing, the hospitalist may consult infectious disease or may do an additional workup at that time.
[2017-05-28] MEDS: SIMVASTATIN 20 MG TAB PO SCH (21:00)
[2017-05-28] MEDS: DULoxetine 30 MG CAP (CYMBALTA) PO SCH (21:28)
[2017-05-28 22:00] VITALS: BP 150/80
[2017-05-29] MEDS: NORCO, ANEXSIA 5/325MG TABLET (HYDROcodone/ACETAMINOPHEN) PO PRN ×2 (00:08→09:47)
[2017-05-29 02:00] VITALS: BP 140/81
[2017-05-29] MEDS: HEPARIN SOD (PORCINE) 5000 UNITS/ML VIAL SQ SCH (05:29)
[2017-05-29] MEDS: ONDANSETRON 4 MG TAB (S0181) PO PRN (05:39)
[2017-05-29 06:00] VITALS: BP 169/76
[2017-05-29 07:14] LABS: BASO % 0.3 % (0.0-1.0); EOS # 0.3 10^3/uL (0.0-0.50); EOS % 1.9 % (0.0-3.0); IMMATURE GRANULOCYTE % 4.5 % (0-0); LYMPH # 2.2 10^3/uL (1.5-4.5); LYMPH % 14.2 % (24.0-44.0); MEAN CORPUSCULAR HGB CONC 32.7 g/dl (32.0-36.5); MEAN CORPUSCULAR VOLUME 91.6 fl (80.0-96.0); MONO % 6.3 % (0.0-5.0); NEUTROPHILS % 72.8 % (36.0-66.0); PLATELET COUNT, AUTOMATED 433 10^3/uL (150-450); RED CELL DISTRIBUTION WIDTH 13.2 % (11.5-14.5); WHITE BLOOD COUNT 15.2 10^3/uL (4.0-10.0)
[2017-05-29 07:27] LABS: ANION GAP 9 MEQ/L (8-16); BLOOD UREA NITROGEN 14 MG/DL (7-18); CALCIUM LEVEL 7.7 MG/DL (8.8-10.2); CARBON DIOXIDE LEVEL 26 MEQ/L (21-32); CHLORIDE LEVEL 104 MEQ/L (98-107); CREATININE FOR GFR 0.86 MG/DL (0.55-1.02); GLOMERULAR FILTRATION RATE > 60.0 (>39); GLUCOSE, FASTING 120 MG/DL (83-110); POTASSIUM SERUM 3.7 MEQ/L (3.5-5.1); SODIUM LEVEL 139 MEQ/L (136-145)
[2017-05-29 07:55] VITALS: BP 162/84
[2017-05-29] MEDS: SUCRALFATE 1 GM TAB PO SCH (07:58)
[2017-05-29] MEDS: HumaLOG INSULIN (NovoLOG) PER UNIT SC SCH (07:58)
[2017-05-29] MEDS: MULTIVITAMINS/MINERALS THERAP 1 TAB PO SCH (09:00)
[2017-05-29] MEDS: VITAMIN D 1,000 INTERNATIONAL UNITS TABLET PO SCH (09:00)
[2017-05-29] MEDS: MIRALAX *UNIT DOSE* 17GM PACKET PO SCH (09:00)
[2017-05-29] MEDS: DOCUSATE SODIUM 100 MG CAP PO SCH (09:00)
[2017-05-29] MEDS ORDERED: ONDA4TAB5 PO (09:37)
[2017-05-29] MEDS ORDERED: BACT800T5 PO (09:37)
[2017-05-29] MEDS: PANTOPRAZOLE 40MG TAB (PROTONIX) PO SCH (10:00)
[2017-05-29 10:01] VITALS: BP 162/84
[2017-05-29] MEDS: BACTRIM 160MG/800MG DS TAB PO SCH (10:01)
[2017-05-29] MEDS: MECLIZINE 25 MG TABLET PO PRN (10:01)
[2017-05-29] MEDS: amLODIPine 10 MG TAB PO SCH (10:01)
[2017-05-29 10:30] VITALS: BP 158/60
[2017-05-29] MEDS ORDERED: NORC1TAB4 PO (10:49)
--- NOTE | 2017-05-29 11:07 | DS.PDOC ---
Discharge Summary General Date of Admission May 20, 2017 at 14:56 Date of Discharge 05/29/2017 Attending Physician: Naga Badillo Jr Specialist/Consultants Involve: PROSPER KIM MD Specialist/Consultants Involve Medicine consult and pain management Discharge Summary PROCEDURES PERFORMED DURING STAY: Gallbladder abscess drainage on 05/22/2017, HIDA SCAN ADMITTING DIAGNOSES: 1. Cholecystitis 2. Abdominal pain DISCHARGE DIAGNOSES: 1. Cholecystitis: resolved 2. Abdominal pain: Improving COMPLICATIONS/CHIEF COMPLAINT: Acute Cholecystitis,Epigastric Abdominal Pain. HISTORY OF PRESENT ILLNESS A 71-year-old female who presented with 2-3 weeks of abdominal pain that was radiating to her back. The pain had been increasing in the Last 48 hours., Prompting her visit to the emergency room. At her initial presentation she had not noticed any difference with eating, drinking and bowel movement. She denied diarrhea, constipation and blood per rectum. Patient denies any previous history of an upper or lower endoscope. An abdominal CT showed cholecystitis with some questionable common bile duct dilatation. Ultrasound of the gallbladder, revealed gallbladder wall thickening. She denied nausea and vomiting. HOSPITAL COURSE: Patient was admitted for cholecystitis, severe abdominal pain and a white count of 30.2. Her pain was controlled on LAB NURSE pump. HIDA scan was performed on 05/21/2017, HIDA scan showed findings for acute cholecystitis. Patient had a gallbladder abscess drainage on 05/22 with anesthesia. The abscess grew citrobacter freundii. Patient was started on Bactrim. Repeat culture was ordered on 05/27/2017, and that grew no cultures. Throughout her stay patient complained of increasing nausea, as well as increasing pain despite being on LAB NURSE pump. On physical examination patient did not exhibit signs of being extreme pain, however she stated that she needed more pain medication. On the day of discharge patient's white count was 15.2. This had been a steady decrease from her original presentation of 3.2. Patient still had gallbladder drainage in place. Instructions for proper care, including flushing of the drain with 10 mL of normal saline was explained to patient. Patient verbalized understanding. Patient will be discharged home with instructions to follow-up with Dr. Badillo in 1 week. Patient has been prescribed antinausea medication, antibiotics, as well as pain medication. DISCHARGE MEDICATIONS: Please see below. ALLERGIES: Please see below. PHYSICAL EXAMINATION ON DISCHARGE: VITAL SIGNS: Please see below. GENERAL: Alert,. Patient complains of decrease overall pain but pain still persists NECK:, No thyromegaly CARDIOVASCULAR EXAMINATION: S1 and S2 present, no murmurs, no rubs, no gallops RESPIRATORY EXAMINATION: Clear to auscultate anterior and posterior, ABDOMINAL EXAMINATION: Tender to palpate in the right upper quadrant, bowel sounds present, abdominal gallbladder drainage in place, EXTREMITIES: Open, no swelling, no deformities LABORATORY DATA: Please see below. IMAGING: Abdominal x-ray on 05/20/2017: Abdominal pelvic CT on 05/20/2017: Gallbladder ultrasound on 05/20/2017: HIDA scan on 05/21/2017: [place] x-ray on 05/23/2017: Abdominal ultrasound on 05/27/17: PROGNOSIS: Stable, except patient's white count continued to decrease with antibiotics ACTIVITY: As tolerated DIET: Low-fat diet. DISCHARGE PLAN: As charged home, with instructions to follow-up with Dr. Badillo in 1 week DISPOSITION: Stable, afebrile DISCHARGE INSTRUCTIONS: 1. Flush Gallbladder drainage with 10 mL of normal saline daily. ITEMS TO FOLLOWUP ON ON OUTPATIENT: 1. Pain control 2. Gallbladder drainage DISCHARGE CONDITION: Stable TIME SPENT ON DISCHARGE: Greater than 45 minutes Vital Signs/I&Os Vital Signs Date Time Temp Pulse Resp B/P (MAP) Pulse Ox O2 Delivery O2 Flow Rate FiO2 05/29/17 10:01 99 162/84 05/29/17 09:47 18 05/29/17 07:55 97.9 92 Room Air 05/29/17 06:00 3.0 I&O- Last 24 Hours up to 6 AM 05/30/17 05:59 Intake Total 300 ml Output Total 202 ml Balance 98 ml Laboratory Data Labs 24H Laboratory Tests 2 05/28/17 11:34: Bedside Glucose (Misc Panel) 105 05/28/17 12:03: Differential Slide Review Report, Differential Pathologist's Review COMPREHENSIVE REVIEW, Peripheral Blood Smear Path Consult PERIPHERAL SMEAR 05/28/17 20:36: Bedside Glucose (Misc Panel) 95 05/29/17 06:46: Immature Granulocyte % (Auto) 4.5H, White Blood Count 15.2H, Red Blood Count 3.67L, Hemoglobin 11.0L, Hematocrit 33.6L, Mean Corpuscular Volume 91.6, Mean Corpuscular Hemoglobin 30.0, Mean Corpuscular Hemoglobin Concent 32.7, Red Cell Distribution Width 13.2, Platelet Count 433, Neutrophils (%) (Auto) 72.8H, Lymphocytes (%) (Auto) 14.2L, Monocytes (%) (Auto) 6.3H, Eosinophils (%) (Auto) 1.9, Basophils (%) (Auto) 0.3, Neutrophils # (Auto) 11.0H, Lymphocytes # (Auto) 2.2, Monocytes # (Auto) 1.0H, Eosinophils # (Auto) 0.3, Basophils # (Auto) 0.0, Immature Granulocyte # (Auto) 0.7H, Nucleated Red Blood Cells % (auto) 0.0, Anion Gap 9, Glomerular Filtration Rate > 60.0, Blood Urea Nitrogen 14, Creatinine 0.86, Sodium Level 139, Potassium Level 3.7, Chloride Level 104, Carbon Dioxide Level 26, Calcium Level 7.7L, C-Reactive Protein, Quantitative 10.90H CBC/BMP Laboratory Tests 05/29/17 06:46 Red Blood Count 3.67 L, Mean Corpuscular Volume 91.6, Mean Corpuscular Hemoglobin 30.0, Mean Corpuscular Hemoglobin Concent 32.7, Red Cell Distribution Width 13.2, Neutrophils (%) (Auto) 72.8 H, Lymphocytes (%) (Auto) 14.2 L, Monocytes (%) (Auto) 6.3 H, Eosinophils (%) (Auto) 1.9, Basophils (%) ( Auto) 0.3, Neutrophils # (Auto) 11.0 H, Lymphocytes # (Auto) 2.2, Monocytes # ( Auto) 1.0 H, Eosinophils # (Auto) 0.3, Basophils # (Auto) 0.0, Calcium Level 7.7 L FSBS Laboratory Tests Test 05/28/17 11:34 05/28/17 20:36 Range/Units Bedside Glucose (Misc Panel) 105 95 83-110 MG/DL Microbiology Microbiology 05/29/17 Blood Culture, Received Pending 05/28/17 Blood Culture, Received Pending 05/22/17 Anaerobic Culture - Final, Complete 05/27/17 Gram Stain - Final, Complete 05/27/17 Abscess Culture - Final, Complete 05/22/17 Gram Stain - Final, Complete 05/22/17 Abscess Culture - Final, Complete Citrobacter Freundii Discharge Medications Scheduled (Preservision Areds) 1 Tab Tab, 1 TAB PO BID, (Reported) Aspirin (Aspirin) 325 Mg Tab, 162.5 MG PO DAILY, (Reported) Calcium (Calcium) 600 Mg Tab, 1,200 MG PO BID, (Reported) Cholecalciferol (Vitamin D-3) 2,000 Unit Tab, 2,000 UNIT PO BID, (Reported) Duloxetine Hcl (Duloxetine HCl) 30 Mg Cap, 30 MG PO QHS, (Reported) Ferrous Sulfate (Ferrous Sulfate) 325 Mg Tab, 325 MG PO DAILY, (Reported) Folic Acid (Folic Acid) 800 Mcg Tab, 800 MCG PO DAILY, (Reported) Guanfacine HCl (Guanfacine HCl) 2 Mg Tab, 4 MG PO QHS, (Reported) Loratadine (Claritin) 10 Mg Cap, 10 MG PO DAILY, (Reported) Lovastatin (Lovastatin) 20 Mg Tab, 20 MG PO QHS, (Reported) Metformin Hydrochloride (Metformin HCl) 500 Mg Tab, 500 MG PO BIDWM, (Reported) Multivitamins *[facility] STOCKED* (Thera M Plus *[facility] STOCKED*) 1 Tab Tab, 1 TAB PO DAILY, (Reported) Trimethoprim/Sulfamethoxazole (Bactrim Ds 800-160 mg) 1 Tab Tab, 1 TAB PO BID Scheduled PRN (Acetaminophen/Codeine #4 300-60 mg) 1 Tab Tab, 1 TAB PO Q6H PRN for PAIN, ( Reported) Acetaminophen/Hydrocodone (Hammond 5-325 mg) 1 Tab Tab, 1 TAB PO Q4HP PRN for PAIN Calcium Polycarbophil (Fiber Tabs) 625 Mg Tab, 625 MG PO for BOWEL CARE/ CONSTIPATION, (Reported) Meclizine Hcl (Meclizine HCl) 25 Mg Chw, 25 MG PO DAILY PRN for NAUSEA, ( Reported) Ondansetron HCl (Ondansetron HCl) 4 Mg Tab, 4 MG PO TIDP PRN for NAUSEA OR VOMITING Allergies Coded Allergies: Aspartame (Verified Allergy, Unknown, dizziness, 05/20/17) Lidocaine (Verified Allergy, Unknown, pain from lidocaine patch, 05/20/17) JOSELIN HOLT DO May 29, 2017 11:07
== END 2017-05-29 12:30 | disposition home or self-care (01) | DRG 446 ==
LOC: M ED 05:20 → M ED INP 14:56 → M MSPAV 16:30
PROVIDERS: ADMIT Surgery; ATTEND Surgery
PROC: 0F9430Z Drainage of Gallbladder with Drainage Device, Percutaneous Approach (ICD-10-PCS; principal; 2017-05-22 14:30)
DX: K80.00 Calculus of gallbladder with acute cholecystitis without obstruction (principal); N18.3 Chronic kidney disease, stage 3 (moderate); E11.9 Type 2 diabetes mellitus without complications; R44.1 Visual hallucinations; Z79.82 Long term (current) use of aspirin; Z79.899 Other long term (current) drug therapy; Z88.8 Allergy status to other drugs, medicaments and biological substances; E78.5 Hyperlipidemia, unspecified; M19.90 Unspecified osteoarthritis, unspecified site; Z96.642 Presence of left artificial hip joint; D72.829 Elevated white blood cell count, unspecified

== ENCOUNTER → 2017-06-18 | Outpatient (CLI) | payer MEDICARE, OTHER ==
--- NOTE | 2017-07-14 00:56 | ECWPNPC ---
PATIENT NAME: TENISHA REYNAGA : 1945 GENDER: FEMALE VISIT DATE: 06/18/2017 DISCHARGE DATE: 06/18/17 1358 VISIT LOCKED DATE TIME: PHYSICIAN: ÁNGEL BRONSON RESOURCE: ÁNGEL BRONSON REASON FOR APPOINTMENT 1. HIP/KNEE PAIN HISTORY OF PRESENT ILLNESS HISTORY OF PRESENT ILLNESS: PAIN THE PATIENT DESCRIBES THE PAIN... FALL RISK SCREENING: SCREENING :NO FALLS IN THE PAST YEAR TODAY'S VISIT: NOTES: RECENT HOSPITALIZATION FOR ABD PAIN AND DRAIN HAD BEEN PLACE IN GALL BLADDER. SEEN TODAY FOR FOLLLOWUP FOR LACK AND HIP PAIN PER USUAL VISIT WITH US. RATES PAIN TODAY 5/10. DESCRIBES PAIN ACHING.ADDITION OF CYMBALTA HAS HELPED. CURRENT MEDICATIONS TAKING FERROUS GLUCONATE 325 (36 FE) MG TABLET 1 TABLET ORALLY ONCE A DAY TAKING MULTIVITAMIN WOMEN - TABLET ORALLY DAILY TAKING PRESERVISION AREDS - CAPSULE 1 CAP ORALLY BID TAKING ASPIRIN 325 MG TABLET 1/2 TABLET ORALLY ONCE A DAY TAKING FIBER 625 MG TABLET 1-3 TABLET NEEDED ORALLY BID TAKING CALCIUM 600 MG TABLET 2 TABLET WITH MEALS ORALLY TWICE A DAY TAKING VITAMIN D (CHOLECALCIFEROL) 1000 UNIT TABLET 3 TABLET ORALLY ONCE A DAY TAKING FOLIC ACID 800 MCG TABLET 1 TABLET ORALLY ONCE A DAY TAKING BENADRYL 1 CAP ORALLY 25 MG NEEDED TAKING CLARITIN 10 MG TABLET 1 TABLET ORALLY ONCE A DAY TAKING METFORMIN HCL 500 MG TABLET 1 TABLET WITH MEALS ORALLY TWICE A DAY TAKING LOVASTATIN 20 MG TABLET 1 TABLET WITH A MEAL ORALLY ONCE A DAY TAKING ACETAMINOPHEN-CODEINE #4 300-60 MG TABLET 1 TABLET NEEDED ORALLY EVERY 6 -8 HRS PRN PAIN MDD=3 TAKING GUANFACINE HCL 2 MG TABLET 2 TABLET AT BEDTIME ORALLY BEFORE BEDTIME TAKING MELATONIN 3 MG TABLET 6 TABLET AT BEDTIME NEEDED WITH FOOD ORALLY ONCE A DAY TAKING MECLIZINE HCL 25 MG TABLET CHEWABLE 1 TABLET NEEDED ORALLY ONCE A DAY TAKING XANAX 0.25 MG TABLET 1 TABLET ORALLY TWICE A DAY NEEDED (MDD;2) NOT-TAKING DULOXETINE HCL 30 MG CAPSULE DELAYED RELEASE PARTICLES 1 CAPSULE ORALLY DAILY UNKNOWN RANITIDINE HCL 150 MG TABLET 1 TABLET AT BEDTIME ORALLY ONCE A DAY UNKNOWN VOLTAREN 1 % GEL APPLY 4G TO LEFT KNEE TRANSDERMAL BID UNKNOWN ACETAMINOPHEN-CODEINE #3 300-30 MG TABLET 1 TABLET NEEDED ORALLY EVERY 6 HRS PRN PAIN MDD=4 UNKNOWN OXYCODONE-ACETAMINOPHEN 5-325 MG TABLET 1 TABLET NEEDED ORALLY EVERY 6 HRS UNKNOWN PROBIOTIC - CAPSULE ORALLY DAILY UNKNOWN OXYCONTIN 10 MG TABLET ER 12 HOUR ABUSE-DETERRENT 1 TABLET ORALLY EVERY 12 HRS UNKNOWN MELOXICAM 15 MG TABLET 1 TABLET ORALLY ONCE A DAY UNKNOWN LIDODERM 5 % PATCH 1 PATCH TO SKIN REMOVE AFTER 12 HOURS EXTERNALLY ONCE A DAY UNKNOWN LEVOFLOXACIN 750 MG TABLET 1 TABLET ORALLY ONCE A DAY UNKNOWN AMPICILLIN 500 MG CAPSULE 1 CAPSULE ORALLY EVERY 6 HRS UNKNOWN OXYCONTIN 10 MG TABLET ER 12 HOUR ABUSE-DETERRENT 1 TABLET ORALLY EVERY 8 HOURS MEDICATION LIST REVIEWED AND RECONCILED WITH THE PATIENT PAST MEDICAL HISTORY TYPE 2 DIABETES ARTHRITIS SPINAL STENOSIS CHOLECYSTITIS ALLERGIES SUGAR SUBSTITUTES: LIGHT HEADNESS, DIZZINESS: ALLERGY ASPERTAME: LIGHT HEADEDNESS: ALLERGY GABAPENTIN: VISION BLURS AND HARD TO READ: SIDE EFFECTS LIDODERM: PAIN: SIDE EFFECTS SURGICAL HISTORY RIGHT ANKLE REPAIR- PLATE AND SCREWS RIGHT KNEE- PLATE AND SCREWS LEFT HIP REPLACEMENT 12/15/16 T&A A CHILD AND AN ADULT CHOLECYSTOSTOMY SOCIAL HISTORY GENERAL: TOBACCO USE ARE YOU A:NONSMOKER BMI CARE GOAL FOLLOW-UP ABOVE NORMAL BMI FOLLOW-UPDIETARY MANAGEMENT EDUCATION, GUIDANCE, AND COUNSELING ALCOHOL SCREENING DID YOU HAVE A DRINK CONTAINING ALCOHOL IN THE PAST YEAR?NO POINTS0 INTERPRETATIONNEGATIVE RECREATIONAL DRUG USE DRUG USE?NO CAFFEINE CAFFEINE USE?NO HIV / HEP-C SCREENING HIV TEST OFFERED TO PATIENT:YES DATE OFFERED:05/07/2017 TEST ACCEPTED:NO REASON:PATIENT DECLINED OCCUPATION: RETIRED. DIET: REGULAR. EXERCISE: NO REGULAR EXERCISE. MARITAL STATUS: . OTHERS AT HOME: SPOUSE. HOAHAOISM [id number] SIKH NO [employer] BELIEFS THAT WOULD IMPACT HEALTH CARE. LANGUAGE LANGUAGES SPOKEN:PORTUGUESE LEARNING BARRIERS / SPECIAL NEEDS CHANGE FROM LAST VISIT?NO BARRIERS TO LEARNING?NO HEARING IMPAIRED?NO VISION IMPAIRED?YES :CORRECTIVE LENSES COGNITIVELY IMPAIRED?NO READINESS TO LEARN?YES LEARNING PREFERENCES?NO LEARNING CAPABILITIES PRESENT?YES EMOTIONAL BARRIERS?NO SPECIAL DEVICES?YES :CANE CNA NEEDED?NO PAIN CLINIC PFS, CLERGY, PUBLIC HEALTH REFERRALS PFS REFERRAL NEEDED?NO CLERGY REFERRAL NEEDED?NO PUBLIC HEALTH REFERRAL NEEDED?NO WAS THE PROVIDER NOTIFIED OF ANY PERTINENT INFO?NO HAS THE PATIENT BEEN EDUCATED REGARDING HIS/HER PLAN OF CARE?YES HAS THE PATIENT BEEN EDUCATED REGARDING PAIN, THE RISK FOR PAIN, THE IMPORTANCE OF EFFECTIVE PAIN MANAGEMENT, AND THE PAIN ASSESSMENT PROCESS?YES PATIENT: ____. ADVANCE DIRECTIVES HEALTH CARE PROXY?NO WOULD YOU LIKE MORE INFORMATION?NO DO YOU HAVE A DNR?NO WOULD YOU LIKE MORE INFORMATION?NO LIVING WILL?NO WOULD YOU LIKE MORE INFORMATION?NO POWER OF RAYON CONER?YES NAME OF POA?FILL OUT FREE FORM NOTES SECTION PHONE # OF POA?FILL OUT FREE FORM NOTES SECTION DO YOU HAVE A COPY WITH YOU?NO HAVE YOU HAD A COPY OF ANY ADVANCED DIRECTIVE (LISTED ABOVE) ON A PREVIOUS MEDICAL RECORDS AT [facility]?NO TRAVEL OUTSIDE US: DENIES. HOSPITALIZATION/MAJOR DIAGNOSTIC PROCEDURE [facility] [place]- LEFT HIP INFECTION S/P SURGERY 12/23/16 CHILDBIRTH X 3 GALL BLADDER ISSUES@ [facility] 05/2017 REVIEW OF SYSTEMS REVIEWED BY: PROVIDER: ÁNGEL BEEVRLY . CONSTITUTIONAL: ANY CHANGE IN YOUR MEDICAL CONDITION? NO . CHILLS NO . FEVER NO . INFECTION: DO YOU HAVE NEW INFECTIONS? NO . DO YOU HAVE HISTORY OF MRSA? NO . MUSCULOSKELETAL: ANY NEW PATTERNS OF PAIN OR NUMBNESS? NO . GASTROENTEROLOGY: GENERAL TO DISCUSS WITH SURGEON FOR POSSIBLE COLOCYSTECOMY . ANY NEW CHANGE IN BOWEL CONTROL? NO . GENITOURINARY: ANY NEW CHANGE IN BLADDER CONTROL? NO . IS THERE A CHANCE YOU COULD BE ? NO . HEMATOLOGY/LYMPH: DO YOU TAKE ANY BLOOD THINNERS? (FOR EXAMPLE- COUMADIN, PLAVIX, AGGRENOX, PLATEL, PRADAXA, OR XARELTO) NO . WHEN WAS YOUR LAST DOSE? DATE: TIME: . NEUROLOGY: HAVE YOU FALLEN IN THE PAST 6 MONTHS? NO . ANY NEW EXTREMITY NUMBNESS OR WEAKNESS? NO . CARDIOLOGY: DO YOU HAVE A PACEMAKER OR DEFIBRILLATOR? NO . RESPIRATORY: HAVE YOU BEEN SICK IN THE PAST WEEK? NO . FEVER NO . FLU LIKE SYMPTOMS? NO . COUGH NO . INTEGUMENTARY: DO YOU HAVE ANY RASHES OR OPEN SORES? NO . ALLERGIC/IMMUNO: ARE YOU ALLERGIC TO SHELLFISH OR IV DYE? NO . ANY NEW ALLERGIES? NO . PSYCHIATRIC: DO YOU HAVE THOUGHTS OF HURTING YOURSELF OR SOMEONE ELSE? NO . ARE YOU ABUSED, NEGLECTED, OR IN AN UNSAFE ENVIRONMENT? NO . ENDOCRINOLOGY: ARE YOU DIABETIC? YES . OTHER: DO YOU NEED ANY PRESCRIPTIONS? YES, TYLENOL #4 . IF YES, PLEASE LIST: ____ . ANY NEW PROBLEMS WITH YOUR MEDICATIONS? YES, CYMBALTA CAUSES DIZZINESS, PT STOPPED TAKING. PT STATES SHE HAS NOT NEEDED XANAX . WHEN DID YOU LAST EAT? ____ . WHEN DID YOU LAST DRINK? ____ . WHAT DID YOU LAST DRINK? ____ . NAME OF PERSON DRIVING YOU HOME? ____ . DO YOU HAVE ANY OTHER QUESTIONS OR CONCERNS NO, PT REPORTS GETTING FLU SHOT THIS PAST HOSPITAL ADMISSION ON APPROX 05/27/17 . VITAL SIGNS WT 213 LBS, HT 66.5 IN, BMI 33.86 INDEX, BP 118/62 MM HG, HR 83 /MIN, RR 16 /MIN, TEMP 97.2 F, OXYGEN SAT % 100%, NA INITIALS AW 1307, REVIEWED BY: EM. EXAMINATION GENERAL EXAMINATION: LUNGS:CLEAR TO AUSCULTATION BILATERALLY - NEEDS TO BE ENCOURAGED TO TAKE DEEP BREATH . HEART:HEART RATE REGULAR. MUSCULOSKELETAL:TRIGGER POINTS NOTED WITH PALPATION OVER LUMBAR PARAVERTEBRAL MUSCLES AND OVER THE LATERAL THIGHS. RISES SLOWLY TO STANDING POSITION. GAIT SLOW ANTALGIC . ASSESSMENTS STATUS POST LEFT HIP REPLACEMENT - Z96.642 (PRIMARY) LEFT ANTERIOR KNEE PAIN - M25.562 LEFT UPPER ARM PAIN - M79.622 TREATMENT STATUS POST LEFT HIP REPLACEMENT NOTES: NO CHANGE CALL WHEN SCRIPT DUE. WALK TOLERATED . TRY TO WALK DAILY. CLINICAL NOTES: [employer] REGISTRY REVIEWED AND DEMNOSTRATES COMPLLIANCE. (REF # [id number]) REMINDED THAT SHE MUST BRING HER MEDS TO RY APPOINTMENT. RECENT URINE TOXICOLOGY REVIEWED. NO UNAUTHORIZED MEDICATIONS. NO ILLICIT SUBSTANCES AND PRESCRIBED MEDICATIONS WERE PRESENT. PROCEDURE CODES [id number] ESTABILISHED PATIENT [facility] FACILITY CHARGE G8730 PAIN ASSESS POS TOOL F/U PLAN DOC G8427 DOC MEDS VERIFIED W/PT OR RE DISPOSITION & COMMUNICATION FOLLOW UP AFTER SMITH (REASON: BACK/HIP PAIN) ELECTRONICALLY SIGNED BY GRACIELA HUERTA ON 07/13/2017 AT 01:25 PM EST DISCLAIMER : THIS IS A VISIT SUMMARY EXTRACTED FROM THE [employer] CHART. IT IS NOT A COPY OF THE [employer] PROGRESS NOTE. MAURI
== END ==
LOC: M PAIN 13:00
PROVIDERS: ATTEND Nurse Practitioner Family
DX: Z96.642 Presence of left artificial hip joint (principal); M25.562 Pain in left knee; M79.622 Pain in left upper arm; E11.9 Type 2 diabetes mellitus without complications; Z79.82 Long term (current) use of aspirin; Z79.84 Long term (current) use of oral hypoglycemic drugs; Z79.891 Long term (current) use of opiate analgesic; Z79.899 Other long term (current) drug therapy; Z91.02 Food additives allergy status; Z88.8 Allergy status to other drugs, medicaments and biological substances

== ENCOUNTER → 2017-10-29 | Outpatient (REF) | payer MEDICARE ==
[2017-10-29 18:10] LABS: ESTIMATED AVERAGE GLUCOSE 189 MG/DL (60-110); HEMOGLOBIN A1c 8.2 %
[2017-10-29 19:06] LABS: ANION GAP 6 MEQ/L (8-16); BLOOD UREA NITROGEN 27 MG/DL (7-18); CARBON DIOXIDE LEVEL 29 MEQ/L (21-32); CHLORIDE LEVEL 106 MEQ/L (98-107); CREATININE FOR GFR 0.99 MG/DL (0.55-1.30); GLOMERULAR FILTRATION RATE 58.9 (>39); GLUCOSE, FASTING 113 MG/DL (70-100); SODIUM LEVEL 141 MEQ/L (136-145)
== END ==
LOC: M SFHCLERA 11:14
DX: E11.22 Type 2 diabetes mellitus with diabetic chronic kidney disease (principal)
CPT/HCPCS: 83036

== ENCOUNTER → 2017-12-30 | Outpatient (REF) | payer MEDICARE, MEDICAID ==
[2017-12-30 17:15] LABS: HEMATOCRIT 41.7 % (36.0-47.0); HEMOGLOBIN 12.9 g/dl (12.0-15.5); MEAN CORPUSCULAR HEMOGLOBIN 29.7 pg (27.0-33.0); MEAN CORPUSCULAR HGB CONC 30.9 g/dl (32.0-36.5); MEAN CORPUSCULAR VOLUME 96.1 fl (80.0-96.0); PLATELET COUNT, AUTOMATED 355 10^3/uL (150-450); RED BLOOD COUNT 4.34 10^6/uL (4.00-5.40); RED CELL DISTRIBUTION WIDTH 13.7 % (11.5-14.5); WHITE BLOOD COUNT 7.9 10^3/uL (4.0-10.0)
[2017-12-30 17:26] LABS: INR 0.91; PROTHROMBIN TIME 12.3 SECONDS (12.4-14.5)
[2017-12-30 17:50] LABS: ANION GAP 6 MEQ/L (8-16); BLOOD UREA NITROGEN 22 MG/DL (7-18); CALCIUM LEVEL 8.8 MG/DL (8.8-10.2); CARBON DIOXIDE LEVEL 29 MEQ/L (21-32); CHLORIDE LEVEL 107 MEQ/L (98-107); CREATININE FOR GFR 0.93 MG/DL (0.55-1.30); GLOMERULAR FILTRATION RATE > 60.0 (>39); GLUCOSE, FASTING 100 MG/DL (70-100); POTASSIUM SERUM 4.9 MEQ/L (3.5-5.1); SODIUM LEVEL 142 MEQ/L (136-145)
== END ==
LOC: M SFHCLERA 11:56
DX: Z01.818 Encounter for other preprocedural examination (principal); K80.20 Calculus of gallbladder without cholecystitis without obstruction
CPT/HCPCS: 80048

== ENCOUNTER 2018-01-06 06:30 | Day surgery (SDC) | payer MEDICARE ==
[2018-01-06] MEDS ORDERED: ROCURONIUM BROMIDE 50 MG/5 ML VIAL As Ordered (07:08)
[2018-01-06] MEDS: LR 1,000 ML IV (07:08)
[2018-01-06] MEDS ORDERED: LIDOCAINE 2% INJ 100 MG/5 ML SDV (FOR ANES.) As Ordered (07:08)
[2018-01-06] MEDS ORDERED: PROPOFOL 200 MG/20 ML VIAL As Ordered (07:08)
[2018-01-06] MEDS ORDERED: fentaNYL 250 MCG/5 ML INJECTION (J3010) As Ordered (07:09)
[2018-01-06] MEDS ORDERED: MIDAZOLAM INJ 2 MG/2 ML VIAL (J2250) As Ordered (07:09)
[2018-01-06 07:14] LABS: BEDSIDE GLUCOSE 128 MG/DL (83-110)
[2018-01-06] MEDS: ceFAZolin SOD 1 GM in D5W MINI-BAG PLUS 50 ML IV (07:29)
[2018-01-06] MEDS ORDERED: ePHEDrine SULFATE 25 MG/5 ML(5MG/ML) SYRINGE As Ordered ×2 (07:43)
[2018-01-06] MEDS ORDERED: dexameTHASONE 4 MG/ML 1ML VIAL (J1100) As Ordered (07:57)
[2018-01-06] MEDS ORDERED: ONDANSETRON 4MG/2ML VIAL (J2405) As Ordered (07:57)
[2018-01-06] MEDS ORDERED: NEOSTIGMINE 10 MG/10 ML VIAL (J2710) As Ordered (07:57)
[2018-01-06] MEDS ORDERED: HYDROmorphone HCL 2 MG/ML 1ML VIAL (J1170) As Ordered (07:57)
[2018-01-06] MEDS ORDERED: GLYCOPYRROLATE INJ 0.2 MG/ML 2 ML VIAL As Ordered (07:57)
[2018-01-06] MEDS ORDERED: KETOROLAC 60 MG/2 ML VIAL (J1885) As Ordered (07:57)
[2018-01-06] MEDS ORDERED: METOCLOPRAMIDE INJ 10MG/2ML VIAL (J2765) As Ordered (08:01)
[2018-01-06] MEDS: LIDOCAINE W/EPINEPHRINE 1% 20ML VIAL As Ordered (08:30)
[2018-01-06] MEDS ORDERED: HumaLOG INSULIN (NovoLOG) PER UNIT As Ordered (08:58)
[2018-01-06] MEDS: HumaLOG INSULIN (NovoLOG) PER UNIT SC (09:07)
[2018-01-06 09:11] LABS: BEDSIDE GLUCOSE 207 MG/DL (83-110)
[2018-01-06] MEDS ORDERED: HYDROMORPHONE HCL 0.5 MG/ 0.5 ML SYRINGE (J1170 PER 1) IV (09:30)
[2018-01-06] MEDS ORDERED: LR 1,000 ML IV ×2 (09:30)
[2018-01-06] MEDS ORDERED: NORCO, ANEXSIA 5/325MG TABLET (HYDROcodone/ACETAMINOPHEN) PO (09:30)
[2018-01-06] MEDS ORDERED: fentaNYL 100 MCG/2 ML INJECTION (J3010) IV (09:30)
[2018-01-06] MEDS ORDERED: ONDANSETRON 4MG/2ML VIAL (J2405) IV ×2 (09:30)
[2018-01-06] MEDS ORDERED: MORPHINE 4 MG/ML 1ML VIAL/SYRINGE (J2270) IV (09:30)
[2018-01-06] MEDS: PERCOCET 5MG/325MG TAB PO (09:34)
== END 2018-01-06 10:54 | disposition home or self-care (01) ==
LOC: M SDC 06:30
DX: K80.20 Calculus of gallbladder without cholecystitis without obstruction (principal); E11.9 Type 2 diabetes mellitus without complications; N18.9 Chronic kidney disease, unspecified; E78.5 Hyperlipidemia, unspecified; Z79.899 Other long term (current) drug therapy
CPT/HCPCS: 47562

== ENCOUNTER → 2018-02-10 | Outpatient (CLI) | payer MEDICARE | LOC: M LRY 08:21 | DX: S20.212A Contusion of left front wall of thorax, initial encounter (principal); W01.0XXA Fall on same level from slipping, tripping and stumbling without subsequent striking against object, initial encounter; Y92.007 Garden or yard of unspecified non-institutional (private) residence as the place of occurrence of the external cause; Y93.89 Activity, other specified | CPT/HCPCS: 71046; G0463 ==

== ENCOUNTER → 2018-03-18 | Outpatient (REF) | payer MEDICARE ==
[2018-03-18 16:52] LABS: ESTIMATED AVERAGE GLUCOSE 140 MG/DL (60-110); HEMOGLOBIN A1c 6.5 %
[2018-03-18 16:56] LABS: ANION GAP 9 MEQ/L (8-16); BLOOD UREA NITROGEN 20 MG/DL (7-18); CALCIUM LEVEL 8.6 MG/DL (8.8-10.2); CARBON DIOXIDE LEVEL 29 MEQ/L (21-32); CHLORIDE LEVEL 103 MEQ/L (98-107); CREATININE FOR GFR 1.02 MG/DL (0.55-1.30); GLOMERULAR FILTRATION RATE 56.9 (>39); GLUCOSE, FASTING 101 MG/DL (70-100); POTASSIUM SERUM 4.7 MEQ/L (3.5-5.1); SODIUM LEVEL 141 MEQ/L (136-145)
== END ==
LOC: M SFHCLERA 14:40
DX: E11.69 Type 2 diabetes mellitus with other specified complication (principal); E11.22 Type 2 diabetes mellitus with diabetic chronic kidney disease; N18.9 Chronic kidney disease, unspecified; Z23 Encounter for immunization
CPT/HCPCS: 83036